=== PATIENT | female | born 1930 | race Caucasian/White ===

== ENCOUNTER 2020-05-18 12:05 | Inpatient (IN) | payer OTHER ==
[2020-05-18] MEDS ORDERED: SODIUM CHLORIDE 2,449 ML IV ONE (12:47)
--- NOTE | 2020-05-18 13:05 | PDOC ---
History of Present Illness <Marianna Newman - Last Filed: 05/18/20 19:07> - General History Source: EMS, [facility] Records Exam Limitations: Other (nonverbal baseline) - History of Present Illness Initial Comments: 05/18/20 13:06 PCP: Dr. Julius Simental Code: DNR HPI: 89yo F pmh hypotension, dementia, congenital rectovaginal fistual, genera lized weakness, unspecified dysphagia, gingivitis, GERD, anemia 2/2 folate deficiency, candidiasis of skin and nails, insomnia, ESRD on HD, afib NOS, DM2, s/p tracheostomy and PEG tube, sent in from [facility] for AMS vs lethargy. Arrived non-verbal with two page "rounding report" with no indication why sent to the ED. Call placed to [facility] / care management helping get further information. Patient nonverbal, moving all extremities / restless, cortes draining purulent urine, skin red in color. Meds: Per chart All: NKDA PMH: As above PSH: As above 05/18/20 13:40 Spoke with [facility], patient is [facility] resident, normally restless during HD sessions (MWF), today was more lethargic, BP dropped to 60/40 during HD session after 30 minutes of dialysis. Administered 500cc NS with improvement to 70/40, additional 300cc before sending to ED for evaluation of lethargy and hypotension relative to baseline hypotension. Emergency contact / HCP is daughter Della Philippe ([phone]). Nurse appraisal manager agrees to fax a copy of DNR / HCP documentation. 05/18/20 13:51 Spoke with daughter (HCP), Della Philippe who would like a central line for pressure support if that is deemed medically necessary. Confirmed the documented DNR status. Was not aware her mother was sent into the hospital. <Mat Price - Last Filed: 05/18/20 19:20> - General Chief Complaint: Blood Pressure Problem Stated Complaint: LETHARGY Time Seen by Provider: 05/18/20 13:04 Past History <Marianna Newman - Last Filed: 05/18/20 19:07> - Travel History Traveled outside of the country in the last 30 days: No Close contact w/someone who was outside of country & ill: No - Medical History Cardiac Disorders: Yes (Afib) COPD: No CHF: No Dementia: Yes Diabetes: Yes (Type 2) Dialysis: Yes (ESRF) Other medical history: Trach vent dependent, rectovaginal fistula - Reproductive History Is Patient Now?: No - Psycho-Social/Smoking History Smoking History: Smoker current status UNK Have you smoked in the past 12 months: No Information on smoking cessation initiated: No - Substance Abuse Hx (Audit-C & DAST Scrn) How often the patient has a drink containing alcohol: Never Score: In Men: 4 or > Positive; In Women: 3 or > Positive: 0 Screen Result (Pos requires Nsg. Audit-10AR): Negative <Mat Price - Last Filed: 05/18/20 19:20> - Medical History Allergies/Adverse Reactions: Allergies Allergy/AdvReac Type Severity Reaction Status Date / Time No Known Allergies Allergy Verified 05/18/20 12:12 Home Medications: Ambulatory Orders Acetaminophen [Tylenol] 325 mg PO QID PRN 05/18/20 Calcium Acetate [Phoslo -] 667 mg PO TID 05/18/20 Insulin Lispro [Humalog Kwikpen U-100] 4 units SCJ PRN 05/18/20 Magnesium 400 mg PO BID 05/18/20 Melatonin 3 mg PO HS 05/18/20 Metoprolol Tartrate 25 mg PO BID 05/18/20 Omeprazole 20 mg PO DAILY 05/18/20 Sennosides [Senna] 8.6 mg PO HS 05/18/20 Warfarin Na [Coumadin] 5 mg PO HS 05/18/20 Review of Systems - Review of Systems Able to Perform ROS?: No (nonverbal) <Mat Price - Last Filed: 05/18/20 19:20> *Physical Exam - Vital Signs Last Vital Signs Temp Pulse Resp BP Pulse Ox 97 F L 97 H 19 82/58 L 100 05/18/20 12:16 05/18/20 16:45 05/18/20 16:53 05/18/20 16:45 05/18/20 16:21 <Marianna Newman - Last Filed: 05/18/20 19:07> - Vital Signs Last Vital Signs Temp Pulse Resp BP Pulse Ox 97 F L 102 H 20 84/51 L 05/18/20 12:16 05/18/20 12:16 05/18/20 12:16 05/18/20 12:16 - Physical Exam 05/18/20 13:07 Vitals reviewed, notable for hypotension, tachycardia GEN: Chronically ill appearing, appears stated age, restless, eyes closed, noises to pain, moving around, trach and PEG in place. HEENT: NCAT, EOMI, PERRL. Sclera anicteric, non-injected. No facial asymmetry. Moist mucous membranes. Normal voice. Trachea midline. CV: RRR, S1/S2, no murmurs / rubs / gallops appreciated. LUNG: CTABL, mechanically ventilated / +tracheostomy. No wheezes, rales, rhonchi. GI: Soft, NTND, +BS, no guarding, no rebound. No masses. PEG in place, no surrounding erythema, warmth, swelling, crepitus, induration, fluctuance. EXTREMITIES: 2+ distal pulses. No clubbing / cyanosis. 2+ pitting edema to knees bilaterally. No gross deformity in any extremity. SKIN: Warm, dry, no rashes appreciated, non-jaundiced. PSYCH: Normal mood and affect. Cooperative and appropriate. : Cortes in place draining cloudy urine NEURO: Moving all extremities. Otherwise unable to participate in exam. <Mat Price - Last Filed: 05/18/20 19:20> Procedures - Central Line Central Line Lumen: triple Central Line Position: femoral (R) Anesthesia: 1% Lidocaine Amount of anesthesia (ccs): 3 Complications: none Post Central Line Insertion: sutured, good blood return <Marianna Newman - Last Filed: 05/18/20 19:07> ED Treatment Course - LABORATORY CBC & Chemistry Diagram: 05/18/20 12:30 05/18/20 12:30 - ADDITIONAL ORDERS Additional order review: Laboratory Results 05/18/20 05/18/20 05/18/20 12:30 12:30 12:30 PT with INR INR PTT (Actin FS) VBG pH POC VBG pCO2 POC VBG pO2 VBG HCO3 VBG O2 Sat (Fani) VBG Base Excess Sodium 137 Potassium 3.9 Chloride 102 Carbon Dioxide 26 Anion Gap 9 BUN 59.4 H Creatinine 3.3 H Est GFR (CKD-EPI)AfAm 13.85 Est GFR (CKD-EPI)NonAf 11.95 Random Glucose 150 H Lactic Acid 3.6 H* Calcium 8.2 L Total Bilirubin 0.3 AST 26 ALT 14 Alkaline Phosphatase 116 Creatine Kinase 113 CK-MB (CK-2) 2.1 Troponin I 0.03 Total Protein 5.1 L Albumin 1.7 L Blood Type O POSITIVE Antibody Screen Negative 05/18/20 05/18/20 12:30 12:30 PT with INR 97.20 H INR 8.07 H* PTT (Actin FS) 49.1 H VBG pH 7.376 POC VBG pCO2 46.1 POC VBG pO2 39.4 VBG HCO3 26.4 VBG O2 Sat (Fani) 72.6 VBG Base Excess 0.9 Sodium Potassium Chloride Carbon Dioxide Anion Gap BUN Creatinine Est GFR (CKD-EPI)AfAm Est GFR (CKD-EPI)NonAf Random Glucose Lactic Acid Calcium Total Bilirubin AST ALT Alkaline Phosphatase Creatine Kinase CK-MB (CK-2) Troponin I Total Protein Albumin Blood Type Antibody Screen 05/18/20 12:30 RBC 2.92 L MCV 96.7 H MCHC 30.5 L RDW 24.8 H MPV 7.9 Neutrophils % 64.5 Lymphocytes % 14.7 Monocytes % 3.8 Eosinophils % 16.7 H Basophils % 0.3 - Medications Given in the ED: ED Medications Discontinued Medications Generic Name Dose Route Start Last Admin Trade Name Jobyq PRN Reason Stop Dose Admin Acetaminophen 1,000 mg 05/18/20 16:18 05/18/20 16:19 Ofirmev Injection - IVPB 05/18/20 16:19 1,000 mg ONCE ONE Administration Sodium Chloride 2,449 mls @ 1,224.5 mls/hr 05/18/20 12:47 05/18/20 14:34 Normal Saline - 30 ml/kg infuse over 2 hr (2449 ml) 05/18/20 14:46 Not Given IV ONCE ONE Piperacillin Sod/Tazobactam 50 mls @ 100 mls/hr 05/18/20 13:45 05/18/20 14:42 Sod 3.375 gm/ Dextrose IVPB 05/18/20 14:14 100 mls/hr ONCE ONE Administration Protocol Sodium Chloride 1,000 ml 05/18/20 13:06 05/18/20 14:34 Normal Saline - IV 05/18/20 13:07 Not Given ONCE ONE Sodium Chloride 500 ml 05/18/20 13:30 05/18/20 14:15 Normal Saline - IV 05/18/20 13:31 500 ml ONCE ONE Administration Sodium Chloride 500 ml 05/18/20 15:28 05/18/20 15:15 Normal Saline - IV 05/18/20 15:29 500 ml ONCE ONE Administration Vancomycin HCl 1,000 mg 05/18/20 13:45 05/18/20 14:57 Vancomycin (Pre-Docked) IVPB 05/18/20 13:46 1,000 mg ONCE ONE Administration Protocol <Marianna Newman - Last Filed: 05/18/20 19:07> - LABORATORY CBC & Chemistry Diagram: 05/18/20 12:30 05/18/20 12:30 <Mat Price - Last Filed: 05/18/20 19:20> Medical Decision Making - Medical Decision Making 05/18/20 13:08 89yo F pmh hypotension, dementia, congenital rectovaginal fistual, generalized weakness, unspecified dysphagia, gingivitis, GERD, anemia 2/2 folate deficiency, candidiasis of skin and nails, insomnia, ESRD on HD, afib NOS, DM2, s/p tracheostomy and PEG tube, sent in from [facility] dialysis for AMS vs lethargy. History and exam concerning for sepsis / septic shock. Will obtain broad sepsis workup, IVF for shock, reach out to HCP for goals of care, early antibiosis. - Sepsis order set - Grossly overloaded, starting with 500cc, will reassess - Vanc/Zosyn for antibiosis (urine grossly infected) - Contact facility / find HCP and/or documentation 05/18/20 15:29 - Additional 500cc bolus ordered, responding to first bolus with MAP 66 - Leukocytosis - Anemia - Elevated creatinine c/w known HD patient - Elevated lactic acid - Supratherapeutic INR 8.09 05/18/20 16:25 - Pressure improves to SBP 107 - Patient not requiring pressors at present - Microblog sent for floor admission (patient DNR, no drips) - H/o c-diff, PO (PEG) Vancomycin ordered Dispo: Med/Surg HD bed 05/18/20 19:17 S/p central line, triple lumen, placed in right femoral under sterile procedure. Endorsed to Dr. Howard who will continue to monitor while patient is in the department. <Mat Price - Last Filed: 05/18/20 19:20> Discharge <Marianna Newman - Last Filed: 05/18/20 19:07> - Discharge Information Problems reviewed: Yes - Admission Yes <Mat Price - Last Filed: 05/18/20 19:20> - Discharge Information Clinical Impression/Diagnosis: ESRD (end stage renal disease) on dialysis, Lactic acid increased, Supratherapeutic INR, Septic shock Sepsis Qualifiers: Sepsis type: sepsis due to unspecified organism Sepsis acute organ dysfunction status: unspecified Qualified Code(s): A41.9 - Sepsis, unspecified organism UTI (urinary tract infection) Qualifiers: Urinary tract infection type: site unspecified Hematuria presence: with hematuria Qualified Code(s): N39.0 - Urinary tract infection, site not specified Condition: Guarded
[2020-05-18] MEDS ORDERED: SODIUM CHLORIDE 0.9% 500 ML INFUS.BAG IV ONE ×3 (13:06→15:28)
--- NOTE | 2020-05-18 13:39 | PDOC ---
Documentation entered by Susanne Cruz SCRIBE, acting as scribe for Hu Maynard MD. Hu Maynard MD: This documentation has been prepared by the Anthony hernandez Ana, SCRIBE, under my direction and personally reviewed by me in its entirety. I confirm that the documentation accurately reflects all work, treatment, procedures, and medical decision making performed by me. Attending Attestation - Resident Resident Name: Albert,Mat - ED Attending Attestation I have performed the following: I have examined & evaluated the patient, The case was reviewed & discussed with the resident, I agree w/resident's findings & plan, Exceptions are as noted - HPI HPI: 05/18/20 12:55 Patient is an 89 year old female with a significant past medical history of hypotension, dementia, rectovaginal fistual, ESRD on HD, afib, diabetes, s/p tracheostomy, who presents to the ED, from Dialysis, with altered mental status and lethargy since earlier today. Patient is nonverbal at baseline. Unable to contribute history. Allergies: NKDA HPI is limited to the patient being nonverbal. - Physicial Exam PE: 05/18/20 12:55 See resident exam. - Critical Care Time Total Critical Care Time: 60 Critical Care Statement: The care of this patient involved high complexity decision making to prevent further life threatening deterioration of the patient's condition and/or to evaluate & treat vital organ system(s) failure or risk of failure. - Medical Decision Making 05/18/20 13:40 89 F with lethargy from HD. Hypotensive in ED. Suspect sepsis. - Labs, cultures - IVF, abx Discharge - Discharge Information Problems reviewed: Yes Clinical Impression/Diagnosis: ESRD (end stage renal disease) on dialysis, Lactic acid increased, Supratherapeutic INR, Septic shock Sepsis Qualifiers: Sepsis type: sepsis due to unspecified organism Sepsis acute organ dysfunction status: unspecified Qualified Code(s): A41.9 - Sepsis, unspecified organism UTI (urinary tract infection) Qualifiers: Urinary tract infection type: site unspecified Hematuria presence: with hematuria Qualified Code(s): N39.0 - Urinary tract infection, site not specified Condition: Guarded - Follow up/Referral - Patient Discharge Instructions - Post Discharge Activity
[2020-05-18] MEDS ORDERED: VANCOMYCIN 1 GM in D5W (PRE-DOCKED) 1,000 MG/250 ML IVPB ONE (13:45)
[2020-05-18] MEDS ORDERED: PIPERACILLIN/TAZOB 3.375 GM 3.375 GM in DEXTROSE 5%-WATER - 50 ML IVPB ONE (13:45)
[2020-05-18 14:00] LABS: BASO % 0.3 % (0-2.0); EOS % 16.7 % (0-4.5); HEMATOCRIT 28.2 % (32.4-45.2); HEMOGLOBIN 8.6 GM/dL (10.7-15.3); LYMPH % 14.7 % (8-40); MCH 29.5 pg (25.7-33.7); MCHC 30.5 g/dl (32.0-36.0); MEAN CELL VOLUME 96.7 fl (80-96); MEAN PLT VOLUME 7.9 fl (7.5-11.1); MONO % 3.8 % (3.8-10.2); NEUT % 64.5 % (42.8-82.8); PLATELET COUNT 223 K/MM3 (134-434); RBC 2.92 M/mm3 (3.60-5.2); RDW 24.8 % (11.6-15.6); WHITE BLOOD COUNT 12.6 K/mm3 (4.0-10.0)
[2020-05-18 14:00] LABS: EPI CELLS 18 /uL (0-25.1); HYALINE CASTS 24 /uL (0-3.1); PH,URINE 7.5 (5.0-8.0); URINE APPEARANCE TURBID; URINE BACTERIA 7509 /uL (0-1359); URINE BILIRUBIN NEGATIVE (NEGATIVE); URINE COLOR DK YELLOW; URINE GLUCOSE (UA) NEGATIVE (NEGATIVE); URINE KETONE NEGATIVE (NEGATIVE); URINE LEUK ESTERASE 3+ (NEGATIVE); URINE NITRITE NEGATIVE (NEGATIVE); URINE PROTEIN 3+ (NEGATIVE); URINE WBC 10890 /uL (0-25.8)
[2020-05-18 14:01] LABS: PROTHROMBIN TIME (PATIENT) 97.2 SEC (9.7-13.0)
[2020-05-18 14:03] LABS: ACTIVATED PTT 49.1 SECONDS (25.2-36.5)
[2020-05-18 14:07] LABS: INR 8.07 (0.83-1.09)
[2020-05-18 14:11] LABS: VENOUS BASE EXCESS 0.9 mmol/L (-2-2); VENOUS O2 SATURATION 72.6 % (70-80); VENOUS PCO2 46.1 mmHg (38-52); VENOUS PH 7.376 (7.310-7.410)
[2020-05-18 14:39] LABS: ALBUMIN 1.7 g/dl (3.4-5.0); BILIRUBIN,TOTAL 0.3 mg/dL (0.2-1); BLOOD UREA NITROGEN 59.4 mg/dL (7-18); CALCIUM 8.2 mg/dL (8.5-10.1); CREATININE 3.3 mg/dL (0.55-1.3); POTASSIUM 3.9 mmol/L (3.5-5.1); TOT PROT 5.1 g/dl (6.4-8.2)
[2020-05-18] MEDS ORDERED: PIPERACILLIN/TAZOB 3.375 GM 3.375 GM/50 ML BAG IVPB ONE (14:41)
[2020-05-18] MEDS ORDERED: VANCOMYCIN 1 GRAM (PRE-DOCKED) 1,000 MG/250 ML BAG IVPB ONE ×2 (14:41→19:36)
[2020-05-18 14:51] LABS: URINE RBC 106.8 /uL (0-23.9); YEAST NONE SEEN (NEGATIVE)
--- NOTE | 2020-05-18 15:04 | EKG ---
Test Reason : Blood Pressure : / mmHG Vent. Rate : 098 BPM Atrial Rate : 098 BPM P-R Int : 168 ms QRS Dur : 094 ms QT Int : 358 ms P-R-T Axes : 058 025 129 degrees QTc Int : 457 ms POOR DATA QUALITY, INTERPRETATION MAY BE ADVERSELY AFFECTED NORMAL SINUS RHYTHM LOW VOLTAGE QRS CANNOT RULE OUT ANTERIOR INFARCT , AGE UNDETERMINED ABNORMAL ECG NO PREVIOUS ECGS AVAILABLE Confirmed by Que Zuniga MD ([id number]) on 05/18/2020 3:04:30 PM Referred By: Confirmed By:Que Zuniga MD
[2020-05-18 15:40] LABS: ANISOCYTOSIS 1+; MACROCYTOSIS 1+; OVALOCYTE 1+; PLATELET ESTIMATE NORMAL
[2020-05-18] MEDS ORDERED: ACETAMINOPHEN 1000 MG/100 ML VIAL (NON FORMULARY) IVPB ONE (16:18)
[2020-05-18] MEDS ORDERED: ACETAMINOPHEN INJECTION 100 ML IVPB ONE (16:18)
[2020-05-18] MEDS ORDERED: VANCOMYCIN 250 MG/5 ML ORAL SOLUTION PEG ONE (16:21)
[2020-05-18] MEDS ORDERED: NOREPINEPHRINE BITARTRATE 4 MG/4 ML ML IV ONE (19:13)
--- NOTE | 2020-05-18 19:17 | PDOC ---
*Physical Exam - Vital Signs Last Vital Signs Temp Pulse Resp BP Pulse Ox 97 F L 97 H 19 82/58 L 100 05/18/20 12:16 05/18/20 16:45 05/18/20 16:53 05/18/20 16:45 05/18/20 16:21 ED Treatment Course - LABORATORY CBC & Chemistry Diagram: 05/19/20 21:59 05/19/20 21:59 - ADDITIONAL ORDERS Additional order review: Laboratory Results 05/18/20 05/18/20 05/18/20 12:30 12:30 12:30 PT with INR INR PTT (Actin FS) VBG pH POC VBG pCO2 POC VBG pO2 VBG HCO3 VBG O2 Sat (Fani) VBG Base Excess Sodium 137 Potassium 3.9 Chloride 102 Carbon Dioxide 26 Anion Gap 9 BUN 59.4 H Creatinine 3.3 H Est GFR (CKD-EPI)AfAm 13.85 Est GFR (CKD-EPI)NonAf 11.95 Random Glucose 150 H Lactic Acid 3.6 H* Calcium 8.2 L Total Bilirubin 0.3 AST 26 ALT 14 Alkaline Phosphatase 116 Creatine Kinase 113 CK-MB (CK-2) 2.1 Troponin I 0.03 Total Protein 5.1 L Albumin 1.7 L Blood Type O POSITIVE Antibody Screen Negative 05/18/20 05/18/20 12:30 12:30 PT with INR 97.20 H INR 8.07 H* PTT (Actin FS) 49.1 H VBG pH 7.376 POC VBG pCO2 46.1 POC VBG pO2 39.4 VBG HCO3 26.4 VBG O2 Sat (Fani) 72.6 VBG Base Excess 0.9 Sodium Potassium Chloride Carbon Dioxide Anion Gap BUN Creatinine Est GFR (CKD-EPI)AfAm Est GFR (CKD-EPI)NonAf Random Glucose Lactic Acid Calcium Total Bilirubin AST ALT Alkaline Phosphatase Creatine Kinase CK-MB (CK-2) Troponin I Total Protein Albumin Blood Type Antibody Screen 05/18/20 12:30 RBC 2.92 L MCV 96.7 H MCHC 30.5 L RDW 24.8 H MPV 7.9 Neutrophils % 64.5 Lymphocytes % 14.7 Monocytes % 3.8 Eosinophils % 16.7 H Basophils % 0.3 - Medications Given in the ED: ED Medications Discontinued Medications Generic Name Dose Route Start Last Admin Trade Name Freq PRN Reason Stop Dose Admin Acetaminophen 1,000 mg 05/18/20 16:18 05/18/20 16:19 Ofirmev Injection - IVPB 05/18/20 16:19 1,000 mg ONCE ONE Administration Sodium Chloride 2,449 mls @ 1,224.5 mls/hr 05/18/20 12:47 05/18/20 14:34 Normal Saline - 30 ml/kg infuse over 2 hr (2449 ml) 05/18/20 14:46 Not Given IV ONCE ONE Piperacillin Sod/Tazobactam 50 mls @ 100 mls/hr 05/18/20 13:45 05/18/20 14:42 Sod 3.375 gm/ Dextrose IVPB 05/18/20 14:14 100 mls/hr ONCE ONE Administration Protocol Sodium Chloride 1,000 ml 05/18/20 13:06 05/18/20 14:34 Normal Saline - IV 05/18/20 13:07 Not Given ONCE ONE Sodium Chloride 500 ml 05/18/20 13:30 05/18/20 14:15 Normal Saline - IV 05/18/20 13:31 500 ml ONCE ONE Administration Sodium Chloride 500 ml 05/18/20 15:28 05/18/20 15:15 Normal Saline - IV 05/18/20 15:29 500 ml ONCE ONE Administration Vancomycin HCl 1,000 mg 05/18/20 13:45 05/18/20 14:57 Vancomycin (Pre-Docked) IVPB 05/18/20 13:46 1,000 mg ONCE ONE Administration Protocol Discharge - Discharge Information Problems reviewed: Yes Clinical Impression/Diagnosis: ESRD (end stage renal disease) on dialysis, Lactic acid increased, Supratherapeutic INR, Septic shock Sepsis Qualifiers: Sepsis type: sepsis due to unspecified organism Sepsis acute organ dysfunction status: unspecified Qualified Code(s): A41.9 - Sepsis, unspecified organism UTI (urinary tract infection) Qualifiers: Urinary tract infection type: site unspecified Hematuria presence: with hematuria Qualified Code(s): N39.0 - Urinary tract infection, site not specified Condition: Guarded - Follow up/Referral - Patient Discharge Instructions - Post Discharge Activity
[2020-05-18] MEDS ORDERED: CEFTRIAXONE 1 GM in DEXTROSE 5%-WATER - 50 ML IVPB ONE (19:27)
[2020-05-18] MEDS: NOREPINEPHRINE BITARTRATE 8,000 MCG/500 ML BAG IVPB SCH (19:30)
[2020-05-18] MEDS ORDERED: PHYTONADIONE 10 MG/1 ML AMP IVPB ONE (20:44)
[2020-05-18] MEDS ORDERED: CEFTRIAXONE 1 GM/50 ML BAG ONE (21:12)
[2020-05-18] MEDS ORDERED: PHYTONADIONE 10 MG/1 ML AMP ONE (21:54)
[2020-05-18] MEDS ORDERED: HEPARIN NA (PORCINE) 5,000 UNITS/ML 1ML VIAL SQ SCH ×2 (22:00→23:45)
--- NOTE | 2020-05-18 23:46 | CONSULT ---
Consultation: REQUESTING PROVIDER: Dr. Gt Hector CONSULT REQUEST: We have been asked to medically evaluate this patient for ICU admission HISTORY OF PRESENT ILLNESS: 89 yo female PMHx of hypotension, dementia, congenital rectovaginal fistual, generalized weakness, unspecified dysphagia, gingivitis, GERD, anemia 2/2 folate deficiency, candidiasis of skin and nails, insomnia, ESRD on HD, afib NOS, DM2, s/p tracheostomy and PEG tube, sent in from [facility] dialysis when BP dropped to 60/40 after 30 minutes of HD. Patient seen in ED with trach on ventilator, non verbal, unable to answer questions. REVIEW OF SYSTEMS: Unable to assess, patient nonverbal CONSTITUTIONAL: Absent: fever, chills, diaphoresis, generalized weakness, malaise, loss of appetite, weight change HEENT: Absent: rhinorrhea, nasal congestion, throat pain, throat swelling, difficulty swallowing, mouth swelling, ear pain, eye pain, visual changes CARDIOVASCULAR: Absent: chest pain, syncope, palpitations, irregular heart rate, lightheadedness, peripheral edema RESPIRATORY: Absent: cough, shortness of breath, dyspnea with exertion, orthopnea, wheezing, stridor, hemoptysis GASTROINTESTINAL: Absent: abdominal pain, abdominal distension, nausea, vomiting, diarrhea, constipation, melena, hematochezia GENITOURINARY: Absent: dysuria, frequency, urgency, hesitancy, hematuria, flank pain, genital pain MUSCULOSKELETAL: Absent: myalgia, arthralgia, joint swelling, back pain, neck pain SKIN: Absent: rash, itching, pallor HEMATOLOGIC/IMMUNOLOGIC: Absent: easy bleeding, easy bruising, lymphadenopathy, frequent infections ENDOCRINE: Absent: unexplained weight gain, unexplained weight loss, heat intolerance, cold intolerance NEUROLOGIC: Absent: headache, focal weakness or paresthesias, dizziness, unsteady gait, seizure, mental status changes, bladder or bowel incontinence PSYCHIATRIC: Absent: anxiety, depression, suicidal or homicidal ideation, hallucinations. PHYSICAL EXAMINATION Vital Signs - 24 hr 05/18/20 05/18/20 05/18/20 12:05 12:16 12:25 Temperature 97 F L 97 F L Pulse Rate 102 H Pulse Rate [ Apical] Respiratory 20 20 Rate Blood Pressure 84/51 L Blood Pressure [Right Arm] O2 Sat by Pulse 96 Oximetry (%) 05/18/20 05/18/20 05/18/20 13:10 13:30 13:53 Temperature Pulse Rate Pulse Rate [ 108 H 104 H Apical] Respiratory 21 H 22 H Rate Blood Pressure Blood Pressure 66/48 L 87/64 L [Right Arm] O2 Sat by Pulse 80 L Oximetry (%) 05/18/20 05/18/20 05/18/20 14:30 14:42 15:02 Temperature Pulse Rate Pulse Rate [ 102 H 92 H 102 H Apical] Respiratory 15 18 Rate Blood Pressure Blood Pressure 98/63 63/54 L 72/61 L [Right Arm] O2 Sat by Pulse 99 100 100 Oximetry (%) 05/18/20 05/18/20 05/18/20 16:21 16:45 16:53 Temperature Pulse Rate Pulse Rate [ 103 H 97 H Apical] Respiratory 16 16 19 Rate Blood Pressure Blood Pressure 107/79 82/58 L [Right Arm] O2 Sat by Pulse 100 Oximetry (%) 05/18/20 05/18/20 05/18/20 19:57 20:19 21:00 Temperature Pulse Rate Pulse Rate [ 94 H 97 H Apical] Respiratory 14 16 Rate Blood Pressure Blood Pressure 50/34 L 86/73 L [Right Arm] O2 Sat by Pulse 97 100 Oximetry (%) 05/18/20 05/18/20 21:07 21:59 Temperature 98.2 F Pulse Rate Pulse Rate [ 107 H 112 H Apical] Respiratory 15 16 Rate Blood Pressure Blood Pressure 110/52 L 105/72 [Right Arm] O2 Sat by Pulse 98 98 Oximetry (%) GENERAL: Awake, alert, unable to assess ventilation. Groans to painful stimuli. HEAD: Normal with no signs of trauma. EYES: PERRL ENT: Trach in place NECK: R trialysis cath in place LUNGS: on ventilator, venti breath sounds HEART: RRR, s1 ,s2 ABDOMEN: Obese, soft, nontender, not distended. LUQ Peg tube in place MUSCULOSKELETAL: No bony deformities or tenderness UPPER EXTREMITIES: Warm, very edematous, edematous, LOWER EXTREMITIES: R femoral line. BL feet are cold, no palpable pulses, legs are warm, +2 pitting edema BL feet& ankles. Legs very erythemaous, scaly, peeling, tender to palpation NEUROLOGICAL: Unable to fully assess. SKIN: Warm, entire body erythematous. Laboratory Results - last 24 hr 05/18/20 05/18/20 05/18/20 12:30 12:30 12:30 WBC 12.6 H RBC 2.92 L Hgb 8.6 L Hct 28.2 L MCV 96.7 H MCH 29.5 MCHC 30.5 L RDW 24.8 H Plt Count 223 MPV 7.9 Absolute Neuts (auto) 8.1 H Neutrophils % 64.5 Lymphocytes % 14.7 Monocytes % 3.8 Eosinophils % 16.7 H Basophils % 0.3 Nucleated RBC % 0 Hypochromia 1+ Platelet Estimate Normal Polychromasia 1+ Poikilocytosis 1+ Anisocytosis 1+ Microcytosis 1+ Macrocytosis 1+ Ovalocytes 1+ PT with INR 97.20 H INR 8.07 H* PTT (Actin FS) 49.1 H VBG pH 7.376 POC VBG pCO2 46.1 POC VBG pO2 39.4 VBG HCO3 26.4 VBG O2 Sat (Fani) 72.6 VBG Base Excess 0.9 Sodium Potassium Chloride Carbon Dioxide Anion Gap BUN Creatinine Est GFR (CKD-EPI)AfAm Est GFR (CKD-EPI)NonAf Random Glucose Lactic Acid Calcium Total Bilirubin AST ALT Alkaline Phosphatase Creatine Kinase CK-MB (CK-2) Troponin I Total Protein Albumin Urine Color Urine Appearance Urine pH Ur Specific Crowder Urine Protein Urine Glucose (UA) Urine Ketones Urine Blood Urine Nitrite Urine Bilirubin Urine Urobilinogen Ur Leukocyte Esterase Urine WBC (Auto) Urine RBC (Auto) Urine Casts (Auto) U Pathogenic Cast Auto U Epithel Cells (Auto) Urine Bacteria (Auto) Urine Yeast (Auto) Blood Type Antibody Screen 05/18/20 05/18/20 05/18/20 12:30 12:30 12:30 WBC RBC Hgb Hct MCV MCH MCHC RDW Plt Count MPV Absolute Neuts (auto) Neutrophils % Lymphocytes % Monocytes % Eosinophils % Basophils % Nucleated RBC % Hypochromia Platelet Estimate Polychromasia Poikilocytosis Anisocytosis Microcytosis Macrocytosis Ovalocytes PT with INR INR PTT (Actin FS) VBG pH POC VBG pCO2 POC VBG pO2 VBG HCO3 VBG O2 Sat (Fani) VBG Base Excess Sodium 137 Potassium 3.9 Chloride 102 Carbon Dioxide 26 Anion Gap 9 BUN 59.4 H Creatinine 3.3 H Est GFR (CKD-EPI)AfAm 13.85 Est GFR (CKD-EPI)NonAf 11.95 Random Glucose 150 H Lactic Acid 3.6 H* Calcium 8.2 L Total Bilirubin 0.3 AST 26 ALT 14 Alkaline Phosphatase 116 Creatine Kinase 113 CK-MB (CK-2) 2.1 Troponin I 0.03 Total Protein 5.1 L Albumin 1.7 L Urine Color Urine Appearance Urine pH Ur Specific Crowder Urine Protein Urine Glucose (UA) Urine Ketones Urine Blood Urine Nitrite Urine Bilirubin Urine Urobilinogen Ur Leukocyte Esterase Urine WBC (Auto) Urine RBC (Auto) Urine Casts (Auto) U Pathogenic Cast Auto U Epithel Cells (Auto) Urine Bacteria (Auto) Urine Yeast (Auto) Blood Type O POSITIVE Antibody Screen Negative 05/18/20 05/18/20 13:28 19:26 WBC RBC Hgb Hct MCV MCH MCHC RDW Plt Count MPV Absolute Neuts (auto) Neutrophils % Lymphocytes % Monocytes % Eosinophils % Basophils % Nucleated RBC % Hypochromia Platelet Estimate Polychromasia Poikilocytosis Anisocytosis Microcytosis Macrocytosis Ovalocytes PT with INR INR PTT (Actin FS) VBG pH POC VBG pCO2 POC VBG pO2 VBG HCO3 VBG O2 Sat (Fani) VBG Base Excess Sodium Potassium Chloride Carbon Dioxide Anion Gap BUN Creatinine Est GFR (CKD-EPI)AfAm Est GFR (CKD-EPI)NonAf Random Glucose Lactic Acid 2.3 H* Calcium Total Bilirubin AST ALT Alkaline Phosphatase Creatine Kinase CK-MB (CK-2) Troponin I Total Protein Albumin Urine Color Dk yellow Urine Appearance Turbid Urine pH 7.5 Ur Specific Crowder 1.015 Urine Protein 3+ H Urine Glucose (UA) Negative Urine Ketones Negative Urine Blood 2+ H Urine Nitrite Negative Urine Bilirubin Negative Urine Urobilinogen 1.0 Ur Leukocyte Esterase 3+ H Urine WBC (Auto) 97262 Urine RBC (Auto) 106.8 Urine Casts (Auto) 24 U Pathogenic Cast Auto None seen U Epithel Cells (Auto) 18 Urine Bacteria (Auto) 7509 Urine Yeast (Auto) None seen Blood Type Antibody Screen Active Medications Generic Name Dose Route Start Last Admin Trade Name Freq PRN Reason Stop Dose Admin Chlorhexidine Gluconate 1 applic 05/18/20 22:00 Hibiclens For Decolonization - TP HS TAMIA Norepinephrine Bitartrate 8,000 mcg in 500 mls @ 18.75 mls/hr 05/18/20 19:15 05/18/20 19:57 Levophed Bag IVPB 20 mcg/min TITR TAMIA 75 mls/hr Titration Protocol 5 MCG/MIN Piperacillin Sod/Tazobactam 50 mls @ 100 mls/hr 05/19/20 10:00 Sod 2.25 gm/ Dextrose IVPB BID TAMIA Protocol Piperacillin Sod/Tazobactam 50 mls @ 100 mls/hr 05/18/20 22:00 Sod 2.25 gm/ Dextrose IVPB 05/19/20 22:29 BID [facility] Protocol Mupirocin 1 applic 05/18/20 22:00 Bactroban Ointment (For Decolonization) - NS 05/23/20 21:59 BID TAMIA IMAGING: CXR: Single view of the chest reveals a weak inspiratory effort with tracheostomy tube tip well above ivan, right jugular line tip in right atrium, sclerotic knob, normal jessica and normal heart. There is some blunting of the left angle with left base atelectasis. There is no sign of infiltrate or failure. Pneumothorax is not seen. There are degenerative spine and shoulder changes with possible old trauma involving the left shoulder. There are no prior studies for comparison. Correlation recommended ASSESSMENT/PLAN: 89yo F pmh hypotension, dementia, congenital rectovaginal fistual, generalized weakness, unspecified dysphagia, gingivitis, GERD, anemia 2/2 folate deficiency, candidiasis of skin and nails, insomnia, ESRD on HD, afib NOS, DM2, s/p tracheostomy and PEG tube, sent in from [facility] dialysis for AMS vs lethargy. Admitted to ICU for hypotension 2/2 sepsis. Neuro: - patient is awake and alert - non verbal Pulm: - patient intubated, has trach - CXR: left base atelectasis Cardio: - trop neg - Cardiac monitoring - Hypotension, currently on levophed, BP stable ID: - sepsis: 2/2 UTI, + UA, cx pending - given Vanc, zosyn, rocephin in ED - h/o cdiff, given PO vanc and flagyl in ED - lactic acidosis, trending down - covid pending - ID consulted (Dr. Tierney) Heme: - INR supratherapeutic, giving FFP - On coumadin at home, holding for now (not sure why patient is on) - repeat coags in AM - Hold AC Renal: - cortes in place - ESRD on HD - Nephrology consulted (Dr. Donis) GI - h/o cdiff, given po vanc & flagyl in ED Derm: - full body erythema, does not look like gregorio - hx of skin gregorio - monitor skin changes, discuss with ID DVT Ppx: - holding AC GI Ppx: - protonix 40 IV daily Dispo: Admitting patient to ICU Visit type - Medication Review Med list reviewed for High Risk Meds patients 65 and older: Yes - Emergency Visit Emergency Visit: Yes ED Registration Date: 05/18/20 Care time: The patient presented to the Emergency Department on the above date and was hospitalized for further evaluation of their emergent condition. - New Patient This patient is new to me today: No - Critical Care Critical Care patient: Yes Total Critical Care Time (in minutes): 36 Critical Care Statement: The care of this patient involved high complexity decision making to prevent further life threatening deterioration of the patient's condition and/or to evaluate & treat vital organ system(s) failure or risk of failure. ATTENDING PHYSICIAN STATEMENT I saw and evaluated the patient. I reviewed the resident's note and discussed the case with the resident. I agree with the resident's findings and plan as documented. SUBJECTIVE: OBJECTIVE: ASSESSMENT AND PLAN:
[2020-05-18] MEDS ORDERED: DEXTROSE 5%-WATER - 50 ML IVPB ONE (23:48)
[2020-05-18] MEDS ORDERED: PIPERACILLIN/TAZOBACTAM 2.25 GM VIAL IVPB ONE (23:48)
[2020-05-19] MEDS: MUPIROCIN 2% TOPICAL OINTMENT FOR DECOLONIZATION NS SCH ×3 (00:10→22:46)
[2020-05-19] MEDS: PIPERACILLIN/TAZOB 2.25 GM 2.25 GM in DEXTROSE 5%-WATER - 50 ML IVPB SCH ×3 (00:10→18:17)
[2020-05-19] MEDS: CHLORHEXIDINE GLUCONATE 4% CLEANSER FOR DECOLONIZATION TP SCH ×2 (00:10→22:46)
[2020-05-19] MEDS ORDERED: diphenhydrAMINE HCL 25 MG CAPSULE (FP) PO ONE (04:19)
--- NOTE | 2020-05-19 09:48 | CON.NEP ---
Consult Consult Specialty:: nephrology Reason for Consultation:: esrd - History of Present Illness History of Present Illness: 89yo F pmh hypotension, dementia, congenital rectovaginal fistual, generalized weakness, unspecified dysphagia, gingivitis, GERD, anemia 2/2 folate deficiency, candidiasis of skin and nails, insomnia, ESRD on HD, afib NOS, DM2, s/p tracheostomy and PEG tube, sent in from [facility] dialysis for AMS vs lethargy. She was hypotensive and lethargic. So I had them send her to emergency room from dialysis unit. She is unable to provide any history. Was hypotensive and with a high INR. She is now in ICU on pressors and receiving ffp. She was at another institution 2 to 3 weeks ago after her permcath was dislodged somehow - History Source Limitations to Obtaining History: Dementia - Past Medical History REC THERAPIST: Yes: CVA, Dementia Cardio/Vascular: Yes: AFIB Renal/: Yes: Renal Failure ...: No - Smoking History Smoking history: Smoker current status UNK Have you smoked in the past 12 months: No Home Medications - Allergies Allergies/Adverse Reactions: Allergies Allergy/AdvReac Type Severity Reaction Status Date / Time No Known Allergies Allergy Verified 05/18/20 12:12 - Home Medications Home Medications: Ambulatory Orders Acetaminophen [Tylenol] 325 mg PO QID PRN 05/18/20 Calcium Acetate [Phoslo -] 667 mg PO TID 05/18/20 Insulin Lispro [Humalog Kwikpen U-100] 4 units SCJ PRN 05/18/20 Magnesium 400 mg PO BID 05/18/20 Melatonin 3 mg PO HS 05/18/20 Metoprolol Tartrate 25 mg PO BID 05/18/20 Omeprazole 20 mg PO DAILY 05/18/20 Sennosides [Senna] 8.6 mg PO HS 05/18/20 Warfarin Na [Coumadin] 5 mg PO HS 05/18/20 Review of Systems Unable to obtain ROS, reason: trach, septic Nephrology Consult - Height Height: 5 ft 5 in - Weight Weight: 185 lb 13.595 oz - BMI Body Mass Index (BMI): 30.9 - Lab Results CBC,BMP: CBC, BMP 05/18/20 12:30 05/18/20 12:30 Anion Gap: Anion Gap Anion Gap 9 MMOL/L (8-16) 05/18/20 12:30 - Imaging Chest X-ray: Report Reviewed - Physical Examination Vital Signs: Vital Signs Temperature 97.2 F L 05/19/20 07:00 Pulse Rate 114 H 05/19/20 08:00 Respiratory Rate 16 05/19/20 08:00 Blood Pressure 138/39 L 05/19/20 08:00 O2 Sat by Pulse Oximetry (%) 99 05/19/20 04:31 Constitutional: Yes: Well Nourished, No Distress, Calm Eyes: Yes: Conjunctiva Clear HENT: Yes: Atraumatic, Normocephalic Neck: Yes: Trachea Midline, Other (has trach) Cardiovascular: Yes: Pulse Irregular Respiratory: Yes: Regular, CTA Bilaterally Gastrointestinal: Yes: Soft Access for Hemodialysis: Permacath Musculoskeletal: Yes: WNL Extremities: Yes: Cyanosis Edema: Yes Integumentary: Yes: Erythema (throughout) Wound/Incision: Yes: Clean/Dry Neurological: Yes: Other (lethargic) Assessment/Plan IMPRESSION esrd trach sepsis rash -?allergic to vanco or zosyn edema in part from hypoalbuminemia lactic acidosis with normal anion gap due to low albumin PLAN would continue broad spectrum antibiotics she has a permcath so should continue vanco. May have had olivier ask ID to eval monitor hgb and INR closely will need to try to dialyze today, repeat labs MV
[2020-05-19] MEDS ORDERED: PIPERACILLIN/TAZOBACTAM 2.25 GM VIAL IVPB ONE ×2 (09:57→17:52)
[2020-05-19] MEDS ORDERED: DEXTROSE 5%-WATER - 50 ML IVPB ONE ×2 (09:58→17:53)
[2020-05-19] MEDS ORDERED: PIPERACILLIN/TAZOB 2.25 GM 2.25 GM in DEXTROSE 5%-WATER - 50 ML IVPB SCH (10:00)
[2020-05-19] MEDS ORDERED: PNEUMOC 13-VAL CONJ-DIP CRM/PF 0.5 ML DISP.SYRIN IM ONE (10:00)
[2020-05-19] MEDS ORDERED: SODIUM CHLORIDE 250 ML IV PRN (10:06)
[2020-05-19] MEDS: PANTOPRAZOLE SODIUM 40 MG VIAL IVPUSH SCH (10:41)
[2020-05-19] MEDS ORDERED: NOREPINEPHRINE BITARTRATE 4 MG/4 ML ML IV ONE (11:10)
[2020-05-19 11:41] LABS: BILIRUBIN,DIRECT 0.1 mg/dL (0.0-0.2)
[2020-05-19] MEDS: VANCOMYCIN 250 MG/5 ML ORAL SOLUTION PO SCH ×2 (12:48→18:16)
[2020-05-19 13:11] LABS: BASO % 0.5 % (0-2.0); EOS % 21.7 % (0-4.5); HEMATOCRIT 20.9 % (32.4-45.2); LYMPH % 15.6 % (8-40); MCH 30.2 pg (25.7-33.7); MCHC 31.9 g/dl (32.0-36.0); MEAN CELL VOLUME 94.5 fl (80-96); MEAN PLT VOLUME 7.6 fl (7.5-11.1); NEUT % 57.2 % (42.8-82.8); PLATELET COUNT 200 K/MM3 (134-434); RBC 2.21 M/mm3 (3.60-5.2); RDW 24.4 % (11.6-15.6); WHITE BLOOD COUNT 9.5 K/mm3 (4.0-10.0)
[2020-05-19 13:13] LABS: INR 1.31 (0.83-1.09); PROTHROMBIN TIME (PATIENT) 15.5 SEC (9.7-13.0)
--- NOTE | 2020-05-19 13:14 | PN ---
Teaching Attending Note Name of Resident: Kayden Linder ATTENDING PHYSICIAN STATEMENT I saw and evaluated the patient. I reviewed the resident's note and discussed the case with the resident. I agree with the resident's findings and plan as documented. SUBJECTIVE: Pt seen and examined in the ICU. Remains vented, on levophed gtt 15mcgs. OBJECTIVE: Vital Signs Period Temp Pulse Resp BP Sys/Hernandez Pulse Ox Last 24 Hr 97.1 F-98.9 F 92-114 14-24 50-138/34-88 80-100 Intake & Output 05/16/20 05/17/20 05/18/20 05/19/20 23:59 23:59 23:59 23:59 Intake Total 1550 963 Output Total 75 100 Balance 1475 863 Weight 81.647 kg 84.3 kg Gen: vented, poorly responsive Heart: RRR Lung: decreased breath sounds at the bases Abd: soft, nontender Ext: no edema Active Medications Chlorhexidine Gluconate (Hibiclens For Decolonization -) 1 applic TP HS TAMIA Last Admin: 05/19/20 00:10 Dose: 1 applic Documented by: Diphenhydramine HCl (Benadryl Injection -) 25 mg IVPB ONCE ONE Stop: 05/19/20 13:11 Norepinephrine Bitartrate (Levophed Bag) 8,000 mcg in 500 mls @ 18.75 mls/hr IVPB TITR TAMIA; Protocol Last Titration: 05/19/20 11:03 Dose: 10 mcg/min, 37.5 mls/hr Documented by: Piperacillin Sod/Tazobactam (Sod 2.25 gm/ Dextrose) 50 mls @ 100 mls/hr IVPB BID TAMIA; Protocol Piperacillin Sod/Tazobactam (Sod 2.25 gm/ Dextrose) 50 mls @ 100 mls/hr IVPB BID TAMIA; Protocol Stop: 05/19/20 22:29 Last Admin: 05/19/20 10:41 Dose: 100 mls/hr Documented by: Sodium Chloride (Normal Saline -) 250 mls @ 3,000 mls/hr IV PRN PRN PRN Reason: Hypotension during Dialysis Stop: 05/20/20 10:07 Mupirocin (Bactroban Ointment (For Decolonization) -) 1 applic NS BID TAMIA Stop: 05/23/20 21:59 Last Admin: 05/19/20 10:39 Dose: 1 applic Documented by: Pantoprazole Sodium (Protonix Iv) 40 mg IVPUSH DAILY [facility] Last Admin: 05/19/20 10:41 Dose: 40 mg Documented by: Vancomycin HCl (Vancomycin Oral Solution) 125 mg PO Q6HPO [facility] Last Admin: 05/19/20 12:48 Dose: 125 mg Documented by: ASSESSMENT AND PLAN: Chronic Respiratory Failure UTI Septic Shock ESRD on HD Atrial Fibrillation Supratherapeutic INR DM Drug Rash - continue antibiotics - f/u cultures - titrate pressors to maintain MAP >65 - HD per renal - benadryl - enteral feeds - DVT/GI prophylaxis - continue ICU monitoring critical care time spent in reviewing chart, evaluating patient and formulating plan 35 min
[2020-05-19 13:16] LABS: ACTIVATED PTT 30.5 SECONDS (25.2-36.5)
[2020-05-19 13:27] LABS: HEMOGLOBIN 6.7 GM/dL (10.7-15.3)
[2020-05-19 13:37] LABS: ALBUMIN 1.8 g/dl (3.4-5.0); BILIRUBIN,TOTAL 0.4 mg/dL (0.2-1); BLOOD UREA NITROGEN 66.2 mg/dL (7-18); CALCIUM 7.9 mg/dL (8.5-10.1); CREATININE 3.7 mg/dL (0.55-1.3); MAGNESIUM 2.7 mg/dL (1.8-2.4); TOT PROT 4.7 g/dl (6.4-8.2)
[2020-05-19 13:49] LABS: PHOSPHOROUS 0.9 mg/dL (2.5-4.9)
--- NOTE | 2020-05-19 14:06 | CON.ID ---
Consult Consult Specialty:: infectious diseases Referred by:: Reason for Consultation:: ams,lethargy,resp failure - History of Present Illness Chief Complaint: lethargy,ams History of Present Illness: history obtained from the charts aspatient is lethargic and in resp failure and came in with septic shock and is on pressors 89yo F pmh hypotension, dementia, congenital rectovaginal fistual, generalized weakness, unspecified dysphagia, gingivitis, GERD, anemia 2/2 folate deficiency, candidiasis of skin and nails, insomnia, ESRD on HD, afib NOS, DM2, s/p tracheostomy and PEG tube, sent in from [facility] dialysis for AMS and lethargy. . Patient nonverbal, moving all extremities / restless, cortes draining purulent urine, patient is [facility] resident, normally restless during HD sessions (MWF), today was more lethargic, BP dropped to 60/40 during HD session after 30 minutes of dialysis. Administered 500cc NS with improvement to 70/40, additional 300cc before sending to ED for evaluation of lethargy and hypotension relative to baseline hypotension. Emergency contact currently with ervin barron,opens eyes barely when her name is taken patient also has rash cause not known patient is receiving zosyn and received vanc all cx negative so far has a trach in place - History Source History Provided By: Medical Record, Transfer Record Limitations to Obtaining History: Clinical Condition - Past Medical History TREE INSPECTOR: Yes: CVA, Dementia Cardio/Vascular: Yes: AFIB Renal/: Yes: Renal Failure ...: No - Smoking History Smoking history: Smoker current status UNK Have you smoked in the past 12 months: No Home Medications - Allergies Allergies/Adverse Reactions: Allergies Allergy/AdvReac Type Severity Reaction Status Date / Time No Known Allergies Allergy Verified 05/18/20 12:12 - Home Medications Home Medications: Ambulatory Orders Acetaminophen [Tylenol] 325 mg PO QID PRN 05/18/20 Calcium Acetate [Phoslo -] 667 mg PO TID 05/18/20 Insulin Lispro [Humalog Kwikpen U-100] 4 units SCJ PRN 05/18/20 Magnesium 400 mg PO BID 05/18/20 Melatonin 3 mg PO HS 05/18/20 Metoprolol Tartrate 25 mg PO BID 05/18/20 Omeprazole 20 mg PO DAILY 05/18/20 Sennosides [Senna] 8.6 mg PO HS 05/18/20 Warfarin Na [Coumadin] 5 mg PO HS 05/18/20 Review of Systems Unable to obtain ROS, reason: unable to obtain - Review of Systems Constitutional: reports: Other Physical Exam Vital Signs: Vital Signs Temperature 97.6 F 05/19/20 13:56 Pulse Rate 88 05/19/20 13:56 Respiratory Rate 18 05/19/20 13:56 Blood Pressure 99/68 05/19/20 13:56 O2 Sat by Pulse Oximetry (%) 97 05/19/20 12:10 Constitutional: Yes: Other Neck: Yes: Other (tracheosstomy) Cardiovascular: Yes: Pulse Irregular Respiratory: Yes: Mechanically Ventilated, Other (trach) Gastrointestinal: Yes: Normal Bowel Sounds, Soft, Other (peg) Extremities: Yes: WNL Integumentary: Yes: Rash Wound/Incision: Yes: Clean/Dry Labs: CBC, BMP 05/19/20 12:00 05/19/20 12:00 Imaging - Results Chest X-ray: Report Reviewed, Image Reviewed Assessment/Plan this patient with multiple medical issues now in septic shock all cx reports noted Chronic Respiratory Failure UTI Septic Shock ESRD on HD Atrial Fibrillation Supratherapeutic INR DM Drug Rash plan will continue abx will see how patient does as per icu mgmt might add diflucan rest as per the team monitor rash continue pressors as needed cc 40 min
[2020-05-19] MEDS ORDERED: NAPH,MB-DB/K PH,MBDB POWDER PACKET PO ONE (14:15)
[2020-05-19 14:19] LABS: ANISOCYTOSIS 1+; MACROCYTOSIS 1+; PLATELET ESTIMATE NORMAL
--- NOTE | 2020-05-19 19:55 | PN ---
Physical Exam: SUBJECTIVE: Patient seen and examined OBJECTIVE: Vital Signs Period Temp Pulse Resp BP Sys/Hernandez Pulse Ox Last 24 Hr 97.1 F-98.9 F 88-120 14-24 50-138/34-88 97-100 GENERAL: The patient is awake, alert, and fully oriented, in no acute distress. HEAD: Normal with no signs of trauma. EYES: PERRL, extraocular movements intact, sclera anicteric, conjunctiva clear. No ptosis. ENT: Ears normal, nares patent, oropharynx clear without exudates, moist mucous membranes. NECK: Trachea midline, full range of motion, supple. LUNGS: Breath sounds equal, clear to auscultation bilaterally, no wheezes, no crackles, no accessory muscle use. HEART: Regular rate and rhythm, S1, S2 without murmur, rub or gallop. ABDOMEN: Soft, nontender, nondistended, normoactive bowel sounds, no guarding, no rebound, no hepatosplenomegaly, no masses. EXTREMITIES: 2+ pulses, warm, well-perfused, no edema. NEUROLOGICAL: Cranial nerves II through XII grossly intact. Normal speech, gait not observed. PSYCH: Normal mood, normal affect. SKIN: Warm, dry, normal turgor, no rashes or lesions noted Laboratory Results - last 24 hr 05/18/20 05/18/20 05/18/20 12:30 12:30 12:30 WBC RBC Hgb Hct MCV MCH MCHC RDW Plt Count MPV Absolute Neuts (auto) Neutrophils % Neutrophils % (Manual) Band Neutrophils % Lymphocytes % Lymphocytes % (Manual) Monocytes % Monocytes % (Manual) Eosinophils % Eosinophils % (Manual) Basophils % Basophils % (Manual) Myelocytes % (Man) Promyelocytes % (Man) Blast Cells % (Manual) Nucleated RBC % Metamyelocytes Hypochromia Platelet Estimate Polychromasia Poikilocytosis Basophilic Stippling Anisocytosis Microcytosis Macrocytosis PT with INR INR PTT (Actin FS) VBG pH 7.376 POC VBG pCO2 46.1 POC VBG pO2 39.4 VBG HCO3 26.4 VBG O2 Sat (Fani) 72.6 VBG Base Excess 0.9 Sodium 137 Potassium 3.9 Chloride 102 Carbon Dioxide 26 Anion Gap 9 BUN 59.4 H Creatinine 3.3 H Est GFR (CKD-EPI)AfAm 13.85 Est GFR (CKD-EPI)NonAf 11.95 Random Glucose 150 H Lactic Acid Calcium 8.2 L Phosphorus Magnesium Ferritin 436.6 H Total Bilirubin 0.3 Direct Bilirubin 0.1 AST 26 ALT 14 Alkaline Phosphatase 116 LD Total 479 H Creatine Kinase 113 CK-MB (CK-2) 2.1 Troponin I 0.03 C-Reactive Protein 9.8 H Total Protein 5.1 L Albumin 1.7 L COVID-19 (DAVE) Blood Type O POSITIVE Antibody Screen Negative Crossmatch See Detail 05/18/20 05/18/20 05/19/20 12:30 19:26 12:00 WBC RBC Hgb Hct MCV MCH MCHC RDW Plt Count MPV Absolute Neuts (auto) Neutrophils % Neutrophils % (Manual) Band Neutrophils % Lymphocytes % Lymphocytes % (Manual) Monocytes % Monocytes % (Manual) Eosinophils % Eosinophils % (Manual) Basophils % Basophils % (Manual) Myelocytes % (Man) Promyelocytes % (Man) Blast Cells % (Manual) Nucleated RBC % Metamyelocytes Hypochromia Platelet Estimate Polychromasia Poikilocytosis Basophilic Stippling Anisocytosis Microcytosis Macrocytosis PT with INR INR PTT (Actin FS) VBG pH POC VBG pCO2 POC VBG pO2 VBG HCO3 VBG O2 Sat (Fani) VBG Base Excess Sodium Potassium Chloride Carbon Dioxide Anion Gap BUN Creatinine Est GFR (CKD-EPI)AfAm Est GFR (CKD-EPI)NonAf Random Glucose Lactic Acid 2.3 H* 2.7 H* Calcium Phosphorus Magnesium Ferritin Total Bilirubin Direct Bilirubin AST ALT Alkaline Phosphatase LD Total Creatine Kinase CK-MB (CK-2) Troponin I C-Reactive Protein Total Protein Albumin COVID-19 (DAVE) Not detected Blood Type Antibody Screen Crossmatch 05/19/20 05/19/20 05/19/20 12:00 12:00 12:00 WBC 9.5 RBC 2.21 L Hgb 6.7 L* Hct 20.9 L D MCV 94.5 MCH 30.2 MCHC 31.9 L RDW 24.4 H Plt Count 200 MPV 7.6 Absolute Neuts (auto) 5.5 Neutrophils % 57.2 Neutrophils % (Manual) 59.4 Band Neutrophils % 0.0 Lymphocytes % 15.6 Lymphocytes % (Manual) 13.9 Monocytes % 5.0 Monocytes % (Manual) 0 L Eosinophils % 21.7 H* Eosinophils % (Manual) 24.7 H Basophils % 0.5 Basophils % (Manual) 0.0 Myelocytes % (Man) 1 Promyelocytes % (Man) 0 Blast Cells % (Manual) 0 Nucleated RBC % 0 Metamyelocytes 1 Hypochromia 1+ Platelet Estimate Normal Polychromasia 1+ Poikilocytosis 0 Basophilic Stippling 1+ Anisocytosis 1+ Microcytosis 1+ Macrocytosis 1+ PT with INR 15.50 H INR 1.31 H PTT (Actin FS) 30.5 VBG pH POC VBG pCO2 POC VBG pO2 VBG HCO3 VBG O2 Sat (Fani) VBG Base Excess Sodium 137 Potassium 3.0 L Chloride 100 Carbon Dioxide 29 Anion Gap 8 BUN 66.2 H Creatinine 3.7 H Est GFR (CKD-EPI)AfAm 12.06 Est GFR (CKD-EPI)NonAf 10.41 Random Glucose 133 H Lactic Acid Calcium 7.9 L Phosphorus 0.9 L* Magnesium 2.7 H Ferritin Total Bilirubin 0.4 Direct Bilirubin AST 20 ALT 13 Alkaline Phosphatase 69 LD Total Creatine Kinase CK-MB (CK-2) Troponin I C-Reactive Protein Total Protein 4.7 L Albumin 1.8 L COVID-19 (DAVE) Blood Type Antibody Screen Crossmatch 05/19/20 14:40 WBC RBC Hgb Hct MCV MCH MCHC RDW Plt Count MPV Absolute Neuts (auto) Neutrophils % Neutrophils % (Manual) Band Neutrophils % Lymphocytes % Lymphocytes % (Manual) Monocytes % Monocytes % (Manual) Eosinophils % Eosinophils % (Manual) Basophils % Basophils % (Manual) Myelocytes % (Man) Promyelocytes % (Man) Blast Cells % (Manual) Nucleated RBC % Metamyelocytes Hypochromia Platelet Estimate Polychromasia Poikilocytosis Basophilic Stippling Anisocytosis Microcytosis Macrocytosis PT with INR INR PTT (Actin FS) VBG pH POC VBG pCO2 POC VBG pO2 VBG HCO3 VBG O2 Sat (Fani) VBG Base Excess Sodium Potassium Chloride Carbon Dioxide Anion Gap BUN Creatinine Est GFR (CKD-EPI)AfAm Est GFR (CKD-EPI)NonAf Random Glucose Lactic Acid Calcium Phosphorus Magnesium Ferritin Total Bilirubin Direct Bilirubin AST ALT Alkaline Phosphatase LD Total Creatine Kinase CK-MB (CK-2) Troponin I C-Reactive Protein Total Protein Albumin COVID-19 (DAVE) Blood Type O POSITIVE Antibody Screen Crossmatch Active Medications Generic Name Dose Route Start Last Admin Trade Name Freq PRN Reason Stop Dose Admin Chlorhexidine Gluconate 1 applic 05/18/20 22:00 05/19/20 00:10 Hibiclens For Decolonization - TP 1 applic HS TAMIA Administration Norepinephrine Bitartrate 8,000 mcg in 500 mls @ 18.75 mls/hr 05/18/20 19:15 05/19/20 15:51 Levophed Bag IVPB 15 mcg/min TITR TAMIA 56.25 mls/hr Titration Protocol 5 MCG/MIN Sodium Chloride 250 mls @ 3,000 mls/hr 05/19/20 10:06 Normal Saline - IV 05/20/20 10:07 PRN PRN Hypotension during Dialysis Piperacillin Sod/Tazobactam 50 mls @ 100 mls/hr 05/19/20 18:00 05/19/20 18:17 Sod 2.25 gm/ Dextrose IVPB 100 mls/hr Q8H-IV TAMIA Administration Protocol Mupirocin 1 applic 05/18/20 22:00 05/19/20 10:39 Bactroban Ointment (For Decolonization) - NS 05/23/20 21:59 1 applic BID TAMIA Administration Pantoprazole Sodium 40 mg 05/19/20 10:00 05/19/20 10:41 Protonix Iv IVPUSH 40 mg DAILY TAMIA Administration Vancomycin HCl 125 mg 05/19/20 12:00 05/19/20 18:16 Vancomycin Oral Solution PO 125 mg Q6HPO TAMIA Administration ASSESSMENT/PLAN: 89 yo F with a hypotension, dementia, congenital rectovaginal fistula, GERD, anemia 2/2 folate deficiency, ESRD (HD), afib, and s/p tracheostomy with PEG was sent in from [facility] for AMS vs lethargy with subsequent admission to ICU for sepsis. Neuro: - patient is awake and alert - non verbal Pulm: - patient has tracheostomy - CXR: cxr clear for 05/20/2020 Cardio: - trop neg - Cardiac monitoring - Hypotension, currently on levophed, BP stable ID: - sepsis: 2/2 UTI, + UA, cx pending - given Vanc, zosyn, rocephin in ED - h/o cdiff, given PO vanc and flagyl in ED - lactic acidosis, trending down - covid pending - ID consulted (Dr. Tierney) Heme: - INR supratherapeutic, giving FFP - On coumadin at home, holding for now (not sure why patient is on) - repeat coags in AM - Hold AC Renal: - cortes in place - ESRD on HD - Nephrology consulted (Dr. Donis) GI - h/o cdiff, given po vanc & flagyl in ED Derm: - full body erythema, does not look like gregorio - hx of skin gregorio - monitor skin changes, discuss with ID DVT Ppx: - holding AC GI Ppx: - protonix 40 IV daily Dispo: Admitting patient to ICU ATTENDING PHYSICIAN STATEMENT I saw and evaluated the patient. I reviewed the resident's note and discussed the case with the resident. I agree with the resident's findings and plan as documented. SUBJECTIVE: OBJECTIVE: ASSESSMENT AND PLAN:
[2020-05-19 22:21] LABS: HEMATOCRIT 30.9 % (32.4-45.2); HEMOGLOBIN 9.9 GM/dL (10.7-15.3); MCH 29.9 pg (25.7-33.7); MCHC 32.2 g/dl (32.0-36.0); MEAN PLT VOLUME 7.1 fl (7.5-11.1); RBC 3.32 M/mm3 (3.60-5.2); RDW 20.8 % (11.6-15.6); WHITE BLOOD COUNT 11.7 K/mm3 (4.0-10.0)
[2020-05-19] MEDS: NOREPINEPHRINE BITARTRATE 8,000 MCG/500 ML BAG IVPB SCH (22:26)
[2020-05-19] MEDS: ZINC OXIDE 20% TOPICAL OINTMENT 30 GM TUBE TP SCH (22:46)
[2020-05-19 22:48] LABS: ALBUMIN 1.9 g/dl (3.4-5.0); BILIRUBIN,TOTAL 0.6 mg/dL (0.2-1); CALCIUM 7.9 mg/dL (8.5-10.1); CREATININE 2.3 mg/dL (0.55-1.3); MAGNESIUM 2.5 mg/dL (1.8-2.4)
[2020-05-19 23:03] LABS: BLOOD UREA NITROGEN 32.4 mg/dL (7-18)
[2020-05-19 23:17] LABS: POTASSIUM 2.9 mmol/L (3.5-5.1)
[2020-05-19] MEDS ORDERED: ACETAMINOPHEN 1000 MG/100 ML VIAL (NON FORMULARY) IVPB ONE (23:17)
[2020-05-19] MEDS ORDERED: SODIUM PHOSPHATE - 0 MM in SODIUM CHLORIDE 250 ML IVPB ONE (23:20)
[2020-05-19 23:26] LABS: PLATELET COUNT 92 K/MM3 (134-434)
[2020-05-19] MEDS ORDERED: SODIUM PHOSPHATE - 30 MM in SODIUM CHLORIDE 250 ML IVPB ONE (23:49)
[2020-05-19] MEDS ORDERED: MIDAZOLAM HCL 2 MG/2 ML SINGLE DOSE VIAL IVPUSH ONE (23:49)
--- NOTE | 2020-05-20 00:18 | PROC ---
Central Line Insertion Indication: Poor Venous Access, Vasopressor Risks and Benefits Explained: No (pt intubated) Consent on Chart: No (pt intubated) Central Line: Triple Lumen Catheter Anesthesia: 1% Lidocaine Sterile Technique: Yes Ultrasound Guided Assistance: No Position: Left Subclavian Post Insertion: Yes: Bilateral Breath Sounds, Bilateral Chest Expansion, Chest X-Ray Ordered Sterile Dressing Applied: Yes
[2020-05-20] MEDS ORDERED: PIPERACILLIN/TAZOBACTAM 2.25 GM VIAL IVPB ONE ×2 (00:21→09:55)
[2020-05-20] MEDS ORDERED: DEXTROSE 5%-WATER - 50 ML IVPB ONE ×2 (00:21→09:55)
[2020-05-20] MEDS: VANCOMYCIN 250 MG/5 ML ORAL SOLUTION PO SCH ×4 (00:57→17:13)
[2020-05-20] MEDS: POTASSIUM CHLORIDE 20 MEQ PREMIX IVPB 100 ML IVPB SCH ×3 (00:57→04:00)
[2020-05-20] MEDS ORDERED: MIDAZOLAM HCL 2 MG/2 ML SINGLE DOSE VIAL IVPUSH ONE (02:11)
[2020-05-20] MEDS: PIPERACILLIN/TAZOB 2.25 GM 2.25 GM in DEXTROSE 5%-WATER - 50 ML IVPB SCH ×2 (03:14→10:06)
[2020-05-20 08:05] LABS: HEMATOCRIT 30.5 % (32.4-45.2); HEMOGLOBIN 9.9 GM/dL (10.7-15.3); MCHC 32.4 g/dl (32.0-36.0); MEAN CELL VOLUME 92.5 fl (80-96); MEAN PLT VOLUME 7.2 fl (7.5-11.1); PLATELET COUNT 95 K/MM3 (134-434); RDW 20.3 % (11.6-15.6); WHITE BLOOD COUNT 12.3 K/mm3 (4.0-10.0)
[2020-05-20 08:07] LABS: INR 1.36 (0.83-1.09); PROTHROMBIN TIME (PATIENT) 16.1 SEC (9.7-13.0)
[2020-05-20 08:09] LABS: ACTIVATED PTT 29.9 SECONDS (25.2-36.5)
[2020-05-20 08:14] LABS: ALBUMIN 1.8 g/dl (3.4-5.0); BILIRUBIN,TOTAL 0.5 mg/dL (0.2-1); BLOOD UREA NITROGEN 34.6 mg/dL (7-18); CALCIUM 7.1 mg/dL (8.5-10.1); CREATININE 2.6 mg/dL (0.55-1.3); MAGNESIUM 2.2 mg/dL (1.8-2.4); PHOSPHOROUS 2.4 mg/dL (2.5-4.9); POTASSIUM 3.8 mmol/L (3.5-5.1); TOT PROT 4.9 g/dl (6.4-8.2)
[2020-05-20] MEDS: PANTOPRAZOLE SODIUM 40 MG VIAL IVPUSH SCH (10:06)
[2020-05-20] MEDS: ZINC OXIDE 20% TOPICAL OINTMENT 30 GM TUBE TP SCH (10:07)
[2020-05-20] MEDS: MUPIROCIN 2% TOPICAL OINTMENT FOR DECOLONIZATION NS SCH ×2 (10:08→21:11)
[2020-05-20] MEDS: NOREPINEPHRINE BITARTRATE 8,000 MCG/500 ML BAG IVPB SCH ×2 (10:08→19:39)
--- NOTE | 2020-05-20 11:40 | PN ---
Teaching Attending Note Name of Resident: Javid Lester ATTENDING PHYSICIAN STATEMENT I saw and evaluated the patient. I reviewed the resident's note and discussed the case with the resident. I agree with the resident's findings and plan as documented. SUBJECTIVE: Pt seen and examined in the ICU. Remains vented, on levophed gtt 15mcgs. Diffuse blanching rash over torso, abdomen. OBJECTIVE: Vital Signs Period Temp Pulse Resp BP Sys/Hernandez Pulse Ox Last 24 Hr 97.4 F-98.4 F 88-121 15-24 86-126/44-77 97-100 Intake & Output 05/17/20 05/18/20 05/19/20 05/20/20 23:59 23:59 23:59 23:59 Intake Total 1550 2063 1364 Output Total 75 9738 Balance 1475 -8577 1364 Weight 81.647 kg 84.3 kg Gen: vented, poorly responsive Heart: RRR Lung: decreased breath sounds at the bases Abd: soft, nontender Ext: no edema CBC, BMP 05/20/20 05:39 05/20/20 05:39 Active Medications Chlorhexidine Gluconate (Hibiclens For Decolonization -) 1 applic TP HS [facility] Last Admin: 05/19/20 22:46 Dose: 1 applic Documented by: Norepinephrine Bitartrate (Levophed Bag) 8,000 mcg in 500 mls @ 18.75 mls/hr IVPB TITR TAMIA; Protocol Last Admin: 05/20/20 10:08 Dose: 15 mcg/min, 56.25 mls/hr Documented by: Sodium Chloride (Normal Saline -) 250 mls @ 3,000 mls/hr IV PRN PRN PRN Reason: Hypotension during Dialysis Stop: 05/20/20 10:07 Multi-Ingredient Ointment (Zinc Oxide) 1 applic TP DAILY [facility] Last Admin: 05/20/20 10:07 Dose: 1 applic Documented by: Mupirocin (Bactroban Ointment (For Decolonization) -) 1 applic NS BID TAMIA Stop: 05/23/20 21:59 Last Admin: 05/20/20 10:08 Dose: 1 applic Documented by: Pantoprazole Sodium (Protonix Iv) 40 mg IVPUSH DAILY [facility] Last Admin: 05/20/20 10:06 Dose: 40 mg Documented by: Vancomycin HCl (Vancomycin Oral Solution) 125 mg PO Q6HPO TAMIA ASSESSMENT AND PLAN: Chronic Respiratory Failure UTI Septic Shock ESRD on HD Atrial Fibrillation Supratherapeutic INR Thrombocytopenia DM r/o Drug Rash - IV benadryl, medrol - d/w ID changing antibiotics due to rash - f/u cultures - titrate pressors to maintain MAP >65 - HD per renal - enteral feeds - DVT/GI prophylaxis - continue ICU monitoring critical care time spent in reviewing chart, evaluating patient and formulating plan 35 min
--- NOTE | 2020-05-20 12:02 | PN ---
Progress Note (short form) - Note Progress Note: RENAL Pt is arousable remains trach Last Vital Signs Temp Pulse Rlungs clear garfield BP Pulse Ox 98.2 F 118 H 21 H 118/47 L 100 05/20/20 10:00 05/20/20 10:00 05/20/20 10:00 05/20/20 10:00 05/20/20 10:00 lungs clear cvs s1s2 rr abd soft ext +edema neuro arousable skin generalized erythematous rash involving palms and soles CBC, BMP 05/20/20 05:39 05/20/20 05:39 Current Medications Generic Name Dose Route Start Last Admin Trade Name Freq PRN Reason Stop Dose Admin Chlorhexidine Gluconate 1 applic 05/18/20 22:00 05/19/20 22:46 Hibiclens For Decolonization - TP 1 applic HS TAMIA Administration Diphenhydramine HCl 50 mg 05/20/20 12:00 Benadryl Injection - IVPB Q6H-IV TAMIA Norepinephrine Bitartrate 8,000 mcg in 500 mls @ 18.75 mls/hr 05/18/20 19:15 05/20/20 10:08 Levophed Bag IVPB 15 mcg/min TITR TAMIA 56.25 mls/hr Administration Protocol 5 MCG/MIN Sodium Chloride 250 mls @ 3,000 mls/hr 05/19/20 10:06 Normal Saline - IV 05/20/20 10:07 PRN PRN Hypotension during Dialysis Methylprednisolone Sodium Succinate 60 mg 05/20/20 11:45 Solu-Medrol - IVPUSH Q8H-IV TAMIA Multi-Ingredient Ointment 1 applic 05/19/20 21:45 05/20/20 10:07 Zinc Oxide TP 1 applic DAILY TAMIA Administration Mupirocin 1 applic 05/18/20 22:00 05/20/20 10:08 Bactroban Ointment (For Decolonization) - NS 05/23/20 21:59 1 applic BID TAMIA Administration Pantoprazole Sodium 40 mg 05/19/20 10:00 05/20/20 10:06 Protonix Iv IVPUSH 40 mg DAILY TAMIA Administration Vancomycin HCl 125 mg 05/20/20 12:00 Vancomycin Oral Solution PO Q6HPO TAMIA IMPRESSION esrd septic shock likely drug rash vent dependence s/p recent catheter dislodgement eosinophilia consistent with drug rash PLAN agree that antibiotics should be changed continue oral vanco start hydration given high requirements for pressors will plan on dialyzing tomorrow would repeat lactic acid MV
[2020-05-20] MEDS ORDERED: SODIUM CHLORIDE 1,000 ML IV SCH (12:15)
[2020-05-20] MEDS: methylPREDNISolone NA SUCC 40 MG/1 ML VIAL IVPUSH SCH ×2 (13:23→17:11)
[2020-05-20] MEDS: FENTANYL IVPB 500 MCG/100 ML BAG IVPB SCH (14:00)
--- NOTE | 2020-05-20 14:09 | PN ---
Progress Note, Physician History of Present Illness: rash all over desquamation of the skin noted wound in the left side of the neck noted - Current Medication List Current Medications: Active Medications Chlorhexidine Gluconate (Hibiclens For Decolonization -) 1 applic TP HS [facility] Last Admin: 05/19/20 22:46 Dose: 1 applic Documented by: Diphenhydramine HCl (Benadryl Injection -) 50 mg IVPB Q6H-IV TAMIA Last Admin: 05/20/20 12:45 Dose: 50 mg Documented by: Norepinephrine Bitartrate (Levophed Bag) 8,000 mcg in 500 mls @ 18.75 mls/hr IVPB TITR TAMIA; Protocol Last Admin: 05/20/20 10:08 Dose: 15 mcg/min, 56.25 mls/hr Documented by: Sodium Chloride (Normal Saline -) 250 mls @ 3,000 mls/hr IV PRN PRN PRN Reason: Hypotension during Dialysis Stop: 05/20/20 10:07 Sodium Chloride (Normal Saline -) 1,000 mls @ 50 mls/hr IV ASDIR TAMIA Stop: 05/21/20 12:09 Last Admin: 05/20/20 12:45 Dose: 50 mls/hr Documented by: Fentanyl (Sublimaze Ivpb) 500 mcg in 100 mls @ 5 mls/hr IVPB TITR [facility]; Protocol Fluconazole (Diflucan 200 Mg/D5w Premixed Ivpb -) 100 mls @ 100 mls/hr IVPB DAILY [facility] Methylprednisolone Sodium Succinate (Solu-Medrol -) 60 mg IVPUSH Q8H-IV [facility] Last Admin: 05/20/20 13:23 Dose: 60 mg Documented by: Multi-Ingredient Ointment (Zinc Oxide) 1 applic TP DAILY [facility] Last Admin: 05/20/20 10:07 Dose: 1 applic Documented by: Mupirocin (Bactroban Ointment (For Decolonization) -) 1 applic NS BID [facility] Stop: 05/23/20 21:59 Last Admin: 05/20/20 10:08 Dose: 1 applic Documented by: Pantoprazole Sodium (Protonix Iv) 40 mg IVPUSH DAILY [facility] Last Admin: 05/20/20 10:06 Dose: 40 mg Documented by: Vancomycin HCl (Vancomycin Oral Solution) 125 mg PO Q6HPO [facility] Last Admin: 05/20/20 12:45 Dose: 125 mg Documented by: - Objective Vital Signs: Vital Signs Temperature 98 F 05/20/20 13:07 Pulse Rate 110 H 05/20/20 13:07 Respiratory Rate 18 05/20/20 13:07 Blood Pressure 101/84 05/20/20 13:07 O2 Sat by Pulse Oximetry (%) 98 05/20/20 13:07 Constitutional: Yes: Other Eyes: Yes: Conjunctiva Clear Neck: Yes: Other (trach in place wound on the left side of the neck noted) Cardiovascular: Yes: S1, S2 Respiratory: Yes: Mechanically Ventilated, Other (trach) Gastrointestinal: Yes: Normal Bowel Sounds, Soft Musculoskeletal: Yes: WNL, Other Extremities: Yes: Other Integumentary: Yes: Rash, Other (flakes over the skin,desqumation) Wound/Incision: Yes: Other Labs: CBC, BMP 05/20/20 05:39 05/20/20 05:39 INR, PTT INR 1.36 (0.83-1.09) H 05/20/20 05:39 - ....Imaging Chest X-ray: Report Reviewed, Image Reviewed Assessment/Plan this patient with multiple medical issues now in septic shock all cx reports noted Chronic Respiratory Failure UTI Septic Shock ESRD on HD Atrial Fibrillation Supratherapeutic INR DM Drug Rash plan consider starting diflucan as per renal function as per icu mgmt rest as per the team monitor rash continue pressors as needed cc 40 min
[2020-05-20] MEDS ORDERED: FLUCONAZOLE 200 MG/NS 100 ML IVPB SCH (14:15)
[2020-05-20] MEDS ORDERED: FLUCONAZOLE 200 MG/D5W 100 ML IVPB SCH (14:15)
--- NOTE | 2020-05-20 15:21 | PN ---
Physical Exam: SUBJECTIVE: Patient seen and examined. Tachycardia to 180 that resolved quickly. On norepi @ 15 mcg/min. L femoral line taken out OBJECTIVE: Vital Signs Period Temp Pulse Resp BP Sys/Hernandez Pulse Ox Last 24 Hr 98 F-98.4 F 102-121 15-24 86-126/33-84 97-100 GENERAL: The patient is awake, alert. Non-verbal. Responds to painful stimuli HEAD: NC, ulcers on L neck. Wounds on L chin and behind L ear. PERRL. No ptosis. MMM m LUNGS: venti breath sounds. HEART: Regular rate and rhythm, S1, S2 without murmur, rub or gallop. ABDOMEN: obese, Soft, nontender, nondistended, normoactive bowel sounds, LUQ peg tube EXTREMITIES: 2+ pulses, warm, well-perfused, 3+ pitting edema b/l LE. 2+ pitting edema b/l UE. legs erythematous, scaling SKIN: Warm, dry, diffuse erythema throughout entire body. Laboratory Results - last 24 hr 05/18/20 05/19/20 05/19/20 12:30 14:40 21:47 WBC RBC Hgb Hct MCV MCH MCHC RDW Plt Count MPV Manual Slide Review Platelet Comment PT with INR INR PTT (Actin FS) Sodium Potassium Chloride Carbon Dioxide Anion Gap BUN Creatinine Est GFR (CKD-EPI)AfAm Est GFR (CKD-EPI)NonAf Random Glucose Lactic Acid 2.6 H* Calcium Phosphorus Magnesium Total Bilirubin AST ALT Alkaline Phosphatase Total Protein Albumin Blood Type O POSITIVE O POSITIVE Antibody Screen Negative Crossmatch See Detail 05/19/20 05/19/20 05/20/20 21:59 21:59 05:39 WBC 11.7 H RBC 3.32 L Hgb 9.9 L Hct 30.9 L D MCV 93.0 MCH 29.9 MCHC 32.2 RDW 20.8 H Plt Count 92 L D MPV 7.1 L Manual Slide Review Giant platelets Platelet Comment Decreased PT with INR INR PTT (Actin FS) Sodium 141 Potassium 2.9 L* Chloride 103 Carbon Dioxide 29 Anion Gap 8 BUN 32.4 H Creatinine 2.3 H Est GFR (CKD-EPI)AfAm 21.43 Est GFR (CKD-EPI)NonAf 18.49 Random Glucose 152 H Lactic Acid Calcium 7.9 L Phosphorus 1.0 L* Magnesium 2.5 H Total Bilirubin 0.6 AST 19 ALT 13 Alkaline Phosphatase 77 Total Protein 5.0 L Albumin 1.9 L Blood Type O POSITIVE Antibody Screen Negative Crossmatch 05/20/20 05/20/20 05/20/20 05:39 05:39 05:39 WBC 12.3 H RBC 3.30 L Hgb 9.9 L Hct 30.5 L MCV 92.5 MCH 30.0 MCHC 32.4 RDW 20.3 H Plt Count 95 L MPV 7.2 L Manual Slide Review Platelet Comment PT with INR 16.10 H INR 1.36 H PTT (Actin FS) 29.9 Sodium 139 Potassium 3.8 Chloride 104 Carbon Dioxide 29 Anion Gap 7 L BUN 34.6 H Creatinine 2.6 H Est GFR (CKD-EPI)AfAm 18.48 Est GFR (CKD-EPI)NonAf 15.94 Random Glucose 130 H Lactic Acid Calcium 7.1 L Phosphorus 2.4 L Magnesium 2.2 Total Bilirubin 0.5 AST 17 ALT 13 Alkaline Phosphatase 73 Total Protein 4.9 L Albumin 1.8 L Blood Type Antibody Screen Crossmatch Active Medications Generic Name Dose Route Start Last Admin Trade Name Freq PRN Reason Stop Dose Admin Chlorhexidine Gluconate 1 applic 05/18/20 22:00 05/19/20 22:46 Hibiclens For Decolonization - TP 1 applic HS TAMIA Administration Diphenhydramine HCl 50 mg 05/20/20 12:00 05/20/20 12:45 Benadryl Injection - IVPB 50 mg Q6H-IV TAMIA Administration Norepinephrine Bitartrate 8,000 mcg in 500 mls @ 18.75 mls/hr 05/18/20 19:15 05/20/20 10:08 Levophed Bag IVPB 15 mcg/min TITR TAMIA 56.25 mls/hr Administration Protocol 5 MCG/MIN Sodium Chloride 250 mls @ 3,000 mls/hr 05/19/20 10:06 Normal Saline - IV 05/20/20 10:07 PRN PRN Hypotension during Dialysis Sodium Chloride 1,000 mls @ 50 mls/hr 05/20/20 12:15 05/20/20 12:45 Normal Saline - IV 05/21/20 12:09 50 mls/hr ASDIR TAMIA Administration Fentanyl 500 mcg in 100 mls @ 5 mls/hr 05/20/20 14:00 Sublimaze Ivpb IVPB TITR TAMIA Protocol 25 MCG/HR Fluconazole 100 mls @ 100 mls/hr 05/20/20 14:15 Diflucan 200 Mg/Ns Premixed Ivpb - IVPB DAILY TAMIA Methylprednisolone Sodium Succinate 60 mg 05/20/20 11:45 05/20/20 13:23 Solu-Medrol - IVPUSH 60 mg Q8H-IV TAMIA Administration Multi-Ingredient Ointment 1 applic 05/19/20 21:45 05/20/20 10:07 Zinc Oxide TP 1 applic DAILY TAMIA Administration Mupirocin 1 applic 05/18/20 22:00 05/20/20 10:08 Bactroban Ointment (For Decolonization) - NS 05/23/20 21:59 1 applic BID TAMIA Administration Pantoprazole Sodium 40 mg 05/19/20 10:00 05/20/20 10:06 Protonix Iv IVPUSH 40 mg DAILY TAMIA Administration Vancomycin HCl 125 mg 05/20/20 12:00 05/20/20 12:45 Vancomycin Oral Solution PO 125 mg Q6HPO TAMIA Administration ASSESSMENT/PLAN: 89 YO F PMH dementia, GERD, ESRD on HD, afib, candidasis (skin/nails), DM type 2, congenital rectovaginal fistula, unspecified dysphagia, insomnia, tracheostomy and PEG tube was referred from [facility] for severe hypotension and AMS. Admitted to ICU for Septic shock 2/2 likely UTI. Neuro: -Alert and awake, but non-non verbal -fentantyl drip for pain Pulm: #Chronic respiratory failure -patient has trach - CXR: Single view of the chest reveals a weak inspiratory effort with tracheostomy tube tip well above ivan, right jugular line tip in right atrium, sclerotic knob, normal jessica and normal heart. There is some blunting of the left angle with left base atelectasis. There is no sign of infiltrate or failure. Pneumothorax is not seen. There are degenerative spine and shoulder changes with possible old trauma involving the left shoulder. Cardio: #afib - trop neg -levophed 15 mcg/min for hypotension. BP stable ID: - sepsis: 2/2 UTI, + UA, HR 102, temp 97, BP 84/51, WBC 12.6 -UA: 3+ protein, 2+ blood, 106.8 RBCs, Leuko chris 3+, WBCs 55136, bacteria 7509, epithelial cells 18 -Ucx: >100,000. Ordered a urine culture repeat, but patient is oliguirc. -Blood cx: no growth to date - s/p Vanc, zosyn, rocephin in ED - h/o cdiff, C diff antigen (organism) +, c diff toxin assay neg -s/p zosyn. Continue with vancomycin 125 PO Q6H as IV vanc is more likely to cause derm reactions -lactic acidosis trending down -Diflucan 100 mg IV daily started for fungal infection. Heme: - INR 8: supratherapeutic on admission, s/p FFP -takes warfarin at home. will continue holding home warfarin and other AC -f/u PT/INR, PTT Renal: - cortes - ESRD on HD -BUN/Cr increased to 34.6/2.6 -neprhology consult appreciated. plan on dialysis tomorrow -[id number] O/ [id number] balance GI - h/o cdiff, given po vanc & flagyl in ED -continue with vancomycin 125 PO Q6H - protonix 40 IV daily for GI ppx Derm: - diffuse erythema and scaling. -h/o gregorio infection on skin -discussed with ID. either a reaction to medication or fungal infection. > Diflucan 100 mg IV daily started for fungal infection. Uptodate recommending reducing diflucan dose for those with renal impairment. > solumedrol 60 Q8H -spoke to daughter and [facility] who both denied any allergies to medications or past reactions to medications. Faxing release of information sheet to [facility] for patient's past medical records to investigate a llergies to medications or past reactions to medications. FEN NS@50 ml /hr montior lytes tube feed nepro DVT PPX - holding AC 2/2 supratherapeutic INR on admission -scds Lines Left subclavian triple lumen (05/20). CAN USE Left subclavian triple lumen. R femoral line (05/18) taken out today on 05/20 LUQ peg tube (arrived with it) R permacath cortes Dispo: maintain ICU Visit type - Emergency Visit Emergency Visit: Yes ED Registration Date: 05/18/20 Care time: The patient presented to the Emergency Department on the above date and was hospitalized for further evaluation of their emergent condition. - New Patient This patient is new to me today: No - Critical Care Critical Care patient: No - Medication Review Med list reviewed for High Risk Meds patients 65 and older: Yes ATTENDING PHYSICIAN STATEMENT I saw and evaluated the patient. I reviewed the resident's note and discussed the case with the resident. I agree with the resident's findings and plan as documented. SUBJECTIVE: OBJECTIVE: ASSESSMENT AND PLAN:
[2020-05-20] MEDS ORDERED: FLUCONAZOLE 100 MG/NS 50 ML IVPB ONE (16:50)
[2020-05-20] MEDS: CHLORHEXIDINE GLUCONATE 4% CLEANSER FOR DECOLONIZATION TP SCH (21:12)
[2020-05-21] MEDS: VANCOMYCIN 250 MG/5 ML ORAL SOLUTION PO SCH ×4 (00:21→17:39)
[2020-05-21] MEDS: methylPREDNISolone NA SUCC 40 MG/1 ML VIAL IVPUSH SCH ×3 (02:03→17:39)
[2020-05-21 02:39] LABS: EPI CELLS >36 /uL (0-25.1); PH,URINE 5.5 (5.0-8.0); URINE APPEARANCE CLOUDY; URINE BACTERIA 50 /uL (0-1359); URINE BILIRUBIN NEGATIVE (NEGATIVE); URINE COLOR YELLOW; URINE GLUCOSE (UA) 1+ (NEGATIVE); URINE KETONE TRACE (NEGATIVE); URINE LEUK ESTERASE NEGATIVE (NEGATIVE); URINE NITRITE NEGATIVE (NEGATIVE); URINE PROTEIN 3+ (NEGATIVE); URINE UROBILINOGEN 0.2 mg/dL (0.2-1.0)
[2020-05-21 04:20] LABS: HYALINE CASTS 28 /uL (0-3.1)
[2020-05-21 07:02] LABS: ARTERIAL BLD GAS O2 SATURATION 98.8 mmHg (95-98); ARTERIAL BLOOD GAS PO2 141.2 mmHg (80-100); ARTERIAL BLOOD GAS pH 7.397 (7.350-7.450)
[2020-05-21 07:10] LABS: ALLENS TEST POSITIVE
[2020-05-21 07:11] LABS: VENT MODE A/C; VENT RATE 15
[2020-05-21 07:14] LABS: BASO % 1.1 % (0-2.0); EOS % 0.1 % (0-4.5); HEMATOCRIT 31.8 % (32.4-45.2); HEMOGLOBIN 10.4 GM/dL (10.7-15.3); INR 1.76 (0.83-1.09); LYMPH % 8.9 % (8-40); MCH 30.5 pg (25.7-33.7); MCHC 32.8 g/dl (32.0-36.0); MEAN CELL VOLUME 92.8 fl (80-96); MEAN PLT VOLUME 7.5 fl (7.5-11.1); MONO % 1.2 % (3.8-10.2); NEUT % 88.7 % (42.8-82.8); PLATELET COUNT 112 K/MM3 (134-434); PROTHROMBIN TIME (PATIENT) 20.9 SEC (9.7-13.0); RBC 3.43 M/mm3 (3.60-5.2); RDW 21.9 % (11.6-15.6); WHITE BLOOD COUNT 6.1 K/mm3 (4.0-10.0)
[2020-05-21 07:16] LABS: ACTIVATED PTT 33.6 SECONDS (25.2-36.5)
[2020-05-21 07:33] LABS: ALBUMIN 1.8 g/dl (3.4-5.0); BILIRUBIN,TOTAL 0.4 mg/dL (0.2-1); BLOOD UREA NITROGEN 38.2 mg/dL (7-18); MAGNESIUM 2.5 mg/dL (1.8-2.4); PHOSPHOROUS 3.3 mg/dL (2.5-4.9); POTASSIUM 3.6 mmol/L (3.5-5.1); TOT PROT 4.9 g/dl (6.4-8.2)
[2020-05-21 07:47] LABS: CALCIUM 6.9 mg/dL (8.5-10.1)
[2020-05-21] MEDS ORDERED: SODIUM CHLORIDE 250 ML IV PRN (08:00)
[2020-05-21] MEDS ORDERED: PT OWN MED DRAWER 7, Y5N ONE (10:42)
--- NOTE | 2020-05-21 11:08 | PN ---
Progress Note, Physician Chief Complaint: Sepsis History of Present Illness: Seen and examined at the bedside Currently getting dialysis UF goal is 2L BP is marginal access working well on vent via trach arouseable - Current Medication List Current Medications: Active Medications Chlorhexidine Gluconate (Hibiclens For Decolonization -) 1 applic TP HS [facility] Last Admin: 05/20/20 21:12 Dose: 1 applic Documented by: Diphenhydramine HCl (Benadryl Injection -) 50 mg IVPB Q6H-IV [facility] Last Admin: 05/21/20 02:47 Dose: 50 mg Documented by: Norepinephrine Bitartrate (Levophed Bag) 8,000 mcg in 500 mls @ 18.75 mls/hr IVPB TITR [facility]; Protocol Last Titration: 05/21/20 03:30 Dose: 8 mcg/min, 30 mls/hr Documented by: Sodium Chloride (Normal Saline -) 250 mls @ 3,000 mls/hr IV PRN PRN PRN Reason: Hypotension during Dialysis Stop: 05/20/20 10:07 Sodium Chloride (Normal Saline -) 1,000 mls @ 50 mls/hr IV ASDIR [facility] Stop: 05/21/20 12:09 Last Admin: 05/20/20 12:45 Dose: 50 mls/hr Documented by: Fentanyl (Sublimaze Ivpb) 500 mcg in 100 mls @ 5 mls/hr IVPB TITR [facility]; Protocol Last Titration: 05/20/20 20:00 Dose: 25 mcg/hr, 5 mls/hr Documented by: Fluconazole (Diflucan 100 Mg/Ns Premixed Ivpb -) 50 mls @ 50 mls/hr IVPB DAILY [facility] Sodium Chloride (Normal Saline -) 250 mls @ 3,000 mls/hr IV PRN PRN PRN Reason: Hypotension during Dialysis Stop: 05/22/20 08:00 Methylprednisolone Sodium Succinate (Solu-Medrol -) 60 mg IVPUSH Q8H-IV [facility] Last Admin: 05/21/20 02:03 Dose: 60 mg Documented by: Multi-Ingredient Ointment (Zinc Oxide) 1 applic TP DAILY [facility] Last Admin: 05/20/20 10:07 Dose: 1 applic Documented by: Mupirocin (Bactroban Ointment (For Decolonization) -) 1 applic NS BID [facility] Stop: 05/23/20 21:59 Last Admin: 05/20/20 21:11 Dose: 1 applic Documented by: Pantoprazole Sodium (Protonix Iv) 40 mg IVPUSH DAILY [facility] Last Admin: 05/20/20 10:06 Dose: 40 mg Documented by: Vancomycin HCl (Vancomycin Oral Solution) 125 mg PO Q6HPO [facility] Last Admin: 05/21/20 06:30 Dose: 125 mg Documented by: - Objective Vital Signs: Vital Signs Temperature 98.4 F 05/21/20 08:00 Pulse Rate 107 H 05/21/20 10:15 Respiratory Rate 18 05/21/20 10:15 Blood Pressure 87/66 L 05/21/20 10:15 O2 Sat by Pulse Oximetry (%) 100 05/21/20 07:28 Constitutional: Yes: No Distress Cardiovascular: Yes: Regular Rate and Rhythm Respiratory: Yes: Mechanically Ventilated Gastrointestinal: Yes: Soft Extremities: No: Cyanosis Edema: Yes Labs: CBC, BMP 05/21/20 06:00 05/21/20 06:00 INR, PTT INR 1.76 (0.83-1.09) H 05/21/20 06:00 Assessment/Plan IMPRESSION esrd septic shock likely drug rash vent dependence s/p recent catheter dislodgement eosinophilia consistent with drug rash PLAN Tolerating dialysis with goal UF of 1-1.5L reduced UF goal as BP is marginal. can continue gentle hydration as needed cent support ABx as per ICU/ID ICU monitoring. MV
[2020-05-21] MEDS: MUPIROCIN 2% TOPICAL OINTMENT FOR DECOLONIZATION NS SCH ×2 (11:12→22:04)
[2020-05-21] MEDS: FLUCONAZOLE 100 MG/NS 50 ML IVPB SCH (11:12)
[2020-05-21] MEDS: ZINC OXIDE 20% TOPICAL OINTMENT 30 GM TUBE TP SCH (11:12)
[2020-05-21] MEDS: PANTOPRAZOLE SODIUM 40 MG VIAL IVPUSH SCH (11:12)
[2020-05-21] MEDS ORDERED: fentaNYL CITRATE 250 MCG/5 ML VIAL ONE (12:21)
--- NOTE | 2020-05-21 12:33 | PN ---
Progress Note, Physician History of Present Illness: continues to be on trach being dialysed skin rash improving - Current Medication List Current Medications: Active Medications Chlorhexidine Gluconate (Hibiclens For Decolonization -) 1 applic TP HS [facility] Last Admin: 05/20/20 21:12 Dose: 1 applic Documented by: Diphenhydramine HCl (Benadryl Injection -) 50 mg IVPB Q6H-IV [facility] Last Admin: 05/21/20 11:12 Dose: 50 mg Documented by: Norepinephrine Bitartrate (Levophed Bag) 8,000 mcg in 500 mls @ 18.75 mls/hr IVPB TITR [facility]; Protocol Last Titration: 05/21/20 03:30 Dose: 8 mcg/min, 30 mls/hr Documented by: Fentanyl (Sublimaze Ivpb) 500 mcg in 100 mls @ 5 mls/hr IVPB TITR [facility]; Protocol Last Titration: 05/20/20 20:00 Dose: 25 mcg/hr, 5 mls/hr Documented by: Fluconazole (Diflucan 100 Mg/Ns Premixed Ivpb -) 50 mls @ 50 mls/hr IVPB DAILY [facility] Last Admin: 05/21/20 11:12 Dose: 50 mls/hr Documented by: Sodium Chloride (Normal Saline -) 250 mls @ 3,000 mls/hr IV PRN PRN PRN Reason: Hypotension during Dialysis Stop: 05/22/20 08:00 Methylprednisolone Sodium Succinate (Solu-Medrol -) 60 mg IVPUSH Q8H-IV [facility] Last Admin: 05/21/20 11:12 Dose: 60 mg Documented by: Multi-Ingredient Ointment (Zinc Oxide) 1 applic TP DAILY [facility] Last Admin: 05/21/20 11:12 Dose: 1 applic Documented by: Mupirocin (Bactroban Ointment (For Decolonization) -) 1 applic NS BID [facility] Stop: 05/23/20 21:59 Last Admin: 05/21/20 11:12 Dose: 1 applic Documented by: Pantoprazole Sodium (Protonix Iv) 40 mg IVPUSH DAILY [facility] Last Admin: 05/21/20 11:12 Dose: 40 mg Documented by: Vancomycin HCl (Vancomycin Oral Solution) 125 mg PO Q6HPO [facility] Last Admin: 05/21/20 12:02 Dose: 125 mg Documented by: - Objective Vital Signs: Vital Signs Temperature 98.4 F 05/21/20 08:00 Pulse Rate 98 H 05/21/20 12:08 Respiratory Rate 24 H 05/21/20 12:08 Blood Pressure 96/53 L 05/21/20 11:26 O2 Sat by Pulse Oximetry (%) 99 05/21/20 12:08 Constitutional: Yes: Other Cardiovascular: Yes: S1, S2 Respiratory: Yes: Mechanically Ventilated, Poor Air Entry, Other (on trach) Gastrointestinal: Yes: Normal Bowel Sounds, Soft Musculoskeletal: Yes: WNL Extremities: Yes: WNL Integumentary: Yes: Rash Neurological: Yes: Alert, Other Labs: CBC, BMP 05/21/20 06:00 05/21/20 06:00 INR, PTT INR 1.76 (0.83-1.09) H 05/21/20 06:00 - ....Imaging Chest X-ray: Report Reviewed, Image Reviewed Assessment/Plan this patient with multiple medical issues now in septic shock all cx reports noted Chronic Respiratory Failure UTI Septic Shock ESRD on HD Atrial Fibrillation Supratherapeutic INR DM Drug Rash plan diflucan as per icu mgmt rest as per the team monitor rash urine cx results noted cc 40 min
[2020-05-21] MEDS: FENTANYL IVPB 500 MCG/100 ML BAG IVPB SCH ×2 (14:00→22:00)
--- NOTE | 2020-05-21 15:19 | PN ---
Progress Note (short form) - Note Progress Note: PULM/CCM Pt seen and examined in the ICU. On the vent via trach, on levophed gtt 8 mcgs. Diffuse blanching rash all over the body. S/p HD today Vital Signs Period Temp Pulse Resp BP Sys/Hernandez Pulse Ox Last 24 Hr 98.3 F-98.4 F 73-117 15-24 87-127/50-75 98-100 Intake & Output 05/18/20 05/19/20 05/20/20 05/21/20 23:59 23:59 23:59 23:59 Intake Total 1550 2063 2977 3100 Output Total 75 9738 25 69221 Balance 5561 -7252 3117 -8991 Weight 81.647 kg 84.3 kg 83.915 kg Gen: vented, poorly responsive Heart: RRR Lung: decreased breath sounds at the bases Abd: soft, nontender Ext: no edema CBC, BMP 05/21/20 06:00 05/21/20 06:00 Active Medications Chlorhexidine Gluconate (Hibiclens For Decolonization -) 1 applic TP HS [facility] Last Admin: 05/21/20 22:04 Dose: 1 applic Documented by: Diphenhydramine HCl (Benadryl Injection -) 50 mg IVPB Q6H-IV [facility] Last Admin: 05/21/20 22:04 Dose: 50 mg Documented by: Norepinephrine Bitartrate (Levophed Bag) 8,000 mcg in 500 mls @ 18.75 mls/hr IVPB TITR [facility]; Protocol Last Admin: 05/21/20 21:32 Dose: Not Given Documented by: Fentanyl (Sublimaze Ivpb) 500 mcg in 100 mls @ 5 mls/hr IVPB TITR [facility]; Protocol Last Admin: 05/21/20 14:00 Dose: 25 mcg/hr, 5 mls/hr Documented by: Fluconazole (Diflucan 100 Mg/Ns Premixed Ivpb -) 50 mls @ 50 mls/hr IVPB DAILY [facility] Last Admin: 05/21/20 11:12 Dose: 50 mls/hr Documented by: Sodium Chloride (Normal Saline -) 250 mls @ 3,000 mls/hr IV PRN PRN PRN Reason: Hypotension during Dialysis Stop: 05/22/20 08:00 Methylprednisolone Sodium Succinate (Solu-Medrol -) 60 mg IVPUSH Q8H-IV [facility] Last Admin: 05/21/20 17:39 Dose: 60 mg Documented by: Multi-Ingredient Ointment (Zinc Oxide) 1 applic TP DAILY [facility] Last Admin: 05/21/20 11:12 Dose: 1 applic Documented by: Mupirocin (Bactroban Ointment (For Decolonization) -) 1 applic NS BID [facility] Stop: 05/23/20 21:59 Last Admin: 05/21/20 22:04 Dose: 1 applic Documented by: Pantoprazole Sodium (Protonix Iv) 40 mg IVPUSH DAILY [facility] Last Admin: 05/21/20 11:12 Dose: 40 mg Documented by: Vancomycin HCl (Vancomycin Oral Solution) 125 mg PO Q6HPO [facility] Last Admin: 05/21/20 17:39 Dose: 125 mg Documented by: ASSESSMENT AND PLAN: Chronic Respiratory Failure UTI Septic Shock ESRD on HD Atrial Fibrillation Supratherapeutic INR Thrombocytopenia DM r/o Drug Rash - IV benadryl, medrol - d/w ID changing antibiotics due to rash - f/u cultures - titrate pressors to maintain MAP >65 - HD per renal - enteral feeds - Continue Vanco PO for hx of Cdiff - Continue antifungal coverage - DVT/GI prophylaxis - continue ICU monitoring Ruby Decker ACNP [id number]
[2020-05-21 21:06] LABS: HEP B CORE AB, TOT Negative (Negative)
[2020-05-21] MEDS: NOREPINEPHRINE BITARTRATE 8,000 MCG/500 ML BAG IVPB SCH ×2 (21:32→22:00)
[2020-05-21] MEDS: CHLORHEXIDINE GLUCONATE 4% CLEANSER FOR DECOLONIZATION TP SCH (22:04)
[2020-05-22] MEDS: methylPREDNISolone NA SUCC 40 MG/1 ML VIAL IVPUSH SCH ×3 (01:27→18:00)
[2020-05-22] MEDS: VANCOMYCIN 250 MG/5 ML ORAL SOLUTION PO SCH ×4 (01:27→18:00)
[2020-05-22] MEDS ORDERED: METOPROLOL TARTRATE 5 MG/5 ML VIAL ONE ×2 (03:12→22:29)
[2020-05-22] MEDS ORDERED: METOPROLOL TARTRATE 5 MG/5 ML VIAL IVPUSH ONE (04:38)
[2020-05-22 06:33] LABS: ARTERIAL BLD GAS O2 SATURATION 98.5 mmHg (95-98); ARTERIAL BLOOD GAS BASE EXCESS -3.5 mmol/L (-2-2); ARTERIAL BLOOD GAS PO2 126.4 mmHg (80-100); ARTERIAL BLOOD GAS pH 7.398 (7.350-7.450)
[2020-05-22 07:03] LABS: BASO % 0.1 % (0-2.0); HEMATOCRIT 31.6 % (32.4-45.2); HEMOGLOBIN 10.1 GM/dL (10.7-15.3); LYMPH % 7.9 % (8-40); MCH 30.4 pg (25.7-33.7); MCHC 31.9 g/dl (32.0-36.0); MEAN CELL VOLUME 95.2 fl (80-96); MEAN PLT VOLUME 7.9 fl (7.5-11.1); MONO % 2.1 % (3.8-10.2); NEUT % 89.9 % (42.8-82.8); PLATELET COUNT 140 K/MM3 (134-434); RBC 3.32 M/mm3 (3.60-5.2); RDW 22.4 % (11.6-15.6); WHITE BLOOD COUNT 9.1 K/mm3 (4.0-10.0)
[2020-05-22 07:15] LABS: ALLENS TEST POSITIVE
[2020-05-22 07:16] LABS: VENT MODE A/C; VENT RATE 15
[2020-05-22 07:37] LABS: BILIRUBIN,TOTAL 0.5 mg/dL (0.2-1); CALCIUM 7.3 mg/dL (8.5-10.1); CREATININE 2.3 mg/dL (0.55-1.3); MAGNESIUM 2.3 mg/dL (1.8-2.4); PHOSPHOROUS 2.8 mg/dL (2.5-4.9); POTASSIUM 3.7 mmol/L (3.5-5.1); TOT PROT 5.1 g/dl (6.4-8.2)
[2020-05-22] MEDS: PANTOPRAZOLE SODIUM 40 MG VIAL IVPUSH SCH (10:14)
[2020-05-22] MEDS: FLUCONAZOLE 100 MG/NS 50 ML IVPB SCH (10:16)
[2020-05-22] MEDS: FENTANYL IVPB 500 MCG/100 ML BAG IVPB SCH (10:21)
[2020-05-22] MEDS ORDERED: FENTANYL IVPB 500 MCG/100 ML BAG IVPB ONE (10:21)
[2020-05-22] MEDS: MUPIROCIN 2% TOPICAL OINTMENT FOR DECOLONIZATION NS SCH ×2 (10:22→22:05)
[2020-05-22] MEDS: ZINC OXIDE 20% TOPICAL OINTMENT 30 GM TUBE TP SCH (10:23)
--- NOTE | 2020-05-22 10:24 | PN ---
Progress Note, Physician Chief Complaint: Sepsis History of Present Illness: Seen and examined at the bedside s/p dialysis yesterday on Vasopressers on vent via trach no fevers - Current Medication List Current Medications: Active Medications Chlorhexidine Gluconate (Hibiclens For Decolonization -) 1 applic TP HS [facility] Last Admin: 05/21/20 22:04 Dose: 1 applic Documented by: Diphenhydramine HCl (Benadryl Injection -) 50 mg IVPB Q6H-IV [facility] Last Admin: 05/22/20 03:00 Dose: 50 mg Documented by: Norepinephrine Bitartrate (Levophed Bag) 8,000 mcg in 500 mls @ 18.75 mls/hr IVPB TITR [facility]; Protocol Last Admin: 05/21/20 22:00 Dose: 6 mcg/min, 22.5 mls/hr Documented by: Fentanyl (Sublimaze Ivpb) 500 mcg in 100 mls @ 5 mls/hr IVPB TITR [facility]; Protocol Last Admin: 05/21/20 22:00 Dose: 25 mcg/hr, 5 mls/hr Documented by: Fluconazole (Diflucan 100 Mg/Ns Premixed Ivpb -) 50 mls @ 50 mls/hr IVPB DAILY [facility] Last Admin: 05/21/20 11:12 Dose: 50 mls/hr Documented by: Sodium Chloride (Normal Saline -) 250 mls @ 3,000 mls/hr IV PRN PRN PRN Reason: Hypotension during Dialysis Stop: 05/22/20 08:00 Methylprednisolone Sodium Succinate (Solu-Medrol -) 60 mg IVPUSH Q8H-IV [facility] Last Admin: 05/22/20 01:27 Dose: 60 mg Documented by: Multi-Ingredient Ointment (Zinc Oxide) 1 applic TP DAILY [facility] Last Admin: 05/21/20 11:12 Dose: 1 applic Documented by: Mupirocin (Bactroban Ointment (For Decolonization) -) 1 applic NS BID [facility] Stop: 05/23/20 21:59 Last Admin: 05/21/20 22:04 Dose: 1 applic Documented by: Pantoprazole Sodium (Protonix Iv) 40 mg IVPUSH DAILY [facility] Last Admin: 05/21/20 11:12 Dose: 40 mg Documented by: Vancomycin HCl (Vancomycin Oral Solution) 125 mg PO Q6HPO [facility] Last Admin: 05/22/20 05:49 Dose: 125 mg Documented by: - Objective Vital Signs: Vital Signs Temperature 98.3 F 05/22/20 06:00 Pulse Rate 82 05/22/20 08:25 Respiratory Rate 18 05/22/20 08:25 Blood Pressure 104/72 05/22/20 06:00 O2 Sat by Pulse Oximetry (%) 99 05/22/20 08:25 Constitutional: Yes: No Distress HENT: Yes: Atraumatic Cardiovascular: Yes: Regular Rate and Rhythm Respiratory: Yes: Mechanically Ventilated Gastrointestinal: Yes: Soft Extremities: No: Cyanosis Edema: Yes Labs: CBC, BMP 05/22/20 05:30 05/22/20 05:30 INR, PTT INR 1.76 (0.83-1.09) H 05/21/20 06:00 Assessment/Plan IMPRESSION esrd septic shock likely drug rash vent dependence s/p recent catheter dislodgement eosinophilia consistent with drug rash PLAN s/p dialysis yesterday, no acute need for renal replacement therapy today. Continue ICU mangement, titrate vasopressers as needed can give PRN saline bolus as needed to maintain goal MAP ABx as per ICU/ID Deandre Donis DO
--- NOTE | 2020-05-22 14:03 | PN ---
Progress Note (short form) - Note Progress Note: PULM/CCM Pt seen and examined in the ICU. Drug rash appears stable. Remains comfortable on the Vent. Active Medications Chlorhexidine Gluconate (Hibiclens For Decolonization -) 1 applic TP HS [facility] Last Admin: 05/21/20 22:04 Dose: 1 applic Documented by: Diphenhydramine HCl (Benadryl Injection -) 50 mg IVPB Q6H-IV [facility] Last Admin: 05/22/20 10:16 Dose: 50 mg Documented by: Norepinephrine Bitartrate (Levophed Bag) 8,000 mcg in 500 mls @ 18.75 mls/hr IVPB TITR [facility]; Protocol Last Admin: 05/21/20 22:00 Dose: 6 mcg/min, 22.5 mls/hr Documented by: Fentanyl (Sublimaze Ivpb) 500 mcg in 100 mls @ 5 mls/hr IVPB TITR [facility]; Protocol Last Admin: 05/22/20 10:21 Dose: 25 mcg/hr, 5 mls/hr Documented by: Fluconazole (Diflucan 100 Mg/Ns Premixed Ivpb -) 50 mls @ 50 mls/hr IVPB DAILY [facility] Last Admin: 05/22/20 10:16 Dose: 50 mls/hr Documented by: Sodium Chloride (Normal Saline -) 250 mls @ 3,000 mls/hr IV PRN PRN PRN Reason: Hypotension during Dialysis Stop: 05/22/20 08:00 Methylprednisolone Sodium Succinate (Solu-Medrol -) 60 mg IVPUSH Q8H-IV [facility] Last Admin: 05/22/20 10:14 Dose: 60 mg Documented by: Multi-Ingredient Ointment (Zinc Oxide) 1 applic TP DAILY [facility] Last Admin: 05/22/20 10:23 Dose: 1 applic Documented by: Mupirocin (Bactroban Ointment (For Decolonization) -) 1 applic NS BID [facility] Stop: 05/23/20 21:59 Last Admin: 05/22/20 10:22 Dose: 1 applic Documented by: Pantoprazole Sodium (Protonix Iv) 40 mg IVPUSH DAILY [facility] Last Admin: 05/22/20 10:14 Dose: 40 mg Documented by: Vancomycin HCl (Vancomycin Oral Solution) 125 mg PO Q6HPO [facility] Last Admin: 05/22/20 11:07 Dose: 125 mg Documented by: Vital Signs Period Temp Pulse Resp BP Sys/Hernandez Pulse Ox Last 24 Hr 97.6 F-98.3 F 82-170 16-20 91-125/57-93 98-100 Intake & Output 05/19/20 05/20/20 05/21/20 05/22/20 23:59 23:59 23:59 23:59 Intake Total 2063 2977 3100 1686 Output Total 9738 25 98375 50 Balance -7675 2952 -4557 1636 Weight 84.3 kg 83.915 kg 87.231 kg GEN: Elderly woman VDRF w/ Trach, poorly responsive Lung: decreased breath sounds at the bases Heart: nml S1, S2, RR, unable to apprecite any G/M/R Abd: + BS, S/S N/T N/D X4Q Ext: + Pulese, WWPX4, (-) edema CBC, BMP 05/22/20 05:30 05/22/20 05:30 Microbiology 05/18/20 13:20 Blood - Peripheral Venous Blood Culture - Preliminary NO GROWTH OBTAINED AFTER 96 HOURS, INCUBATION TO CONTINUE FOR 1 DAYS. 05/18/20 12:30 Blood - Peripheral Venous Blood Culture - Preliminary NO GROWTH OBTAINED AFTER 96 HOURS, INCUBATION TO C ONTINUE FOR 1 DAYS. 05/21/20 02:00 Urine - Urine Ospina Urine Culture - Preliminary Group D Strep Or Entero Coccus 05/18/20 12:30 Urine - Urine [place] Urine Culture - Final Contaminated: Please Repeat 05/18/20 13:27 Stool Clostridioides difficile Antigen - Final 05/18/20 13:27 Stool Clostridioides difficile Toxin Assay - Final RECENT STUDIES TO NOTE: CXR 05/20: The chest is been submitted. Since the prior study of 05-18-2020, a left subclavian line has been inserted and the tip is heading into the SVC cephalad. This should be repositioned to go towards the heart. The right jugular line and tracheostomy tube persists. The lungs are clear. There is a weak inspiration. There is no sign of a pneumothorax. Impression: Please reposition left central line to head towards the heart. ASSESS: Drug Rash Chronic Respiratory Failure UTI Septic Shock ESRD on HD Atrial Fibrillation Supratherapeutic INR Thrombocytopenia DM PLAN: - IV benadryl, medrol - d/w ID changing antibiotics due to rash (m/l 2/2 bactrim) - f/u cultures - titrate pressors to maintain MAP >65 - HD per renal - enteral feeds - Continue Vanco PO for hx of Cdiff - Continue antifungal coverage - DVT/GI prophylaxis - continue ICU monitoring [facility] ICU PULM/CCM [id number]
[2020-05-22] MEDS ORDERED: PT OWN MED DRAWER 7, Y5N ONE (22:04)
[2020-05-22] MEDS: CHLORHEXIDINE GLUCONATE 4% CLEANSER FOR DECOLONIZATION TP SCH (22:05)
[2020-05-22] MEDS ORDERED: METOPROLOL TARTRATE 5 MG/5 ML VIAL IVPUSH STA (22:30)
[2020-05-22] MEDS ORDERED: METOPROLOL TARTRATE 5 MG/5 ML VIAL IVPUSH PRN (22:30)
[2020-05-23] MEDS: methylPREDNISolone NA SUCC 40 MG/1 ML VIAL IVPUSH SCH ×3 (02:33→18:24)
[2020-05-23] MEDS: VANCOMYCIN 250 MG/5 ML ORAL SOLUTION PO SCH ×4 (05:50→18:25)
[2020-05-23 07:33] LABS: BLOOD UREA NITROGEN 36.8 mg/dL (7-18); CREATININE 2.8 mg/dL (0.55-1.3); PHOSPHOROUS 2.8 mg/dL (2.5-4.9); POTASSIUM 3.4 mmol/L (3.5-5.1)
[2020-05-23 08:03] LABS: CALCIUM 6.9 mg/dL (8.5-10.1)
[2020-05-23 08:15] LABS: ALBUMIN 1.8 g/dl (3.4-5.0)
[2020-05-23] MEDS: KCL 10 MEQ IVPB 10 MEQ/100 ML INFUS.BAG IVPB SCH ×4 (09:30→12:00)
[2020-05-23] MEDS: FLUCONAZOLE 100 MG/NS 50 ML IVPB SCH (10:00)
--- NOTE | 2020-05-23 10:33 | PN ---
Progress Note (short form) - Note Progress Note: RENAL Pt is arousable remains trach more alert today than before Last Vital Signs Temp Pulse Resp BP Pulse Ox 98.5 F 90 20 116/70 100 05/23/20 06:00 05/23/20 08:21 05/23/20 08:21 05/23/20 06:00 05/23/20 08:21 lungs clear cvs s1s2 rr abd soft ext +edema neuro arousable skin rash is resolving, now has desquamation CBC, BMP 05/22/20 05:30 05/23/20 05:00 Current Medications Generic Name Dose Route Start Last Admin Trade Name Freq PRN Reason Stop Dose Admin Chlorhexidine Gluconate 1 applic 05/18/20 22:00 05/22/20 22:05 Hibiclens For Decolonization - TP 1 applic HS [facility] Administration Diphenhydramine HCl 50 mg 05/20/20 12:00 05/23/20 02:33 Benadryl Injection - IVPB 50 mg Q6H-IV [facility] Administration Norepinephrine Bitartrate 8,000 mcg in 500 mls @ 18.75 mls/hr 05/18/20 19:15 05/22/20 22:00 Levophed Bag IVPB 2 mcg/min TITR [facility] 7.5 mls/hr Titration Protocol 5 MCG/MIN Fentanyl 500 mcg in 100 mls @ 5 mls/hr 05/20/20 14:00 05/22/20 10:21 Sublimaze Ivpb IVPB 25 mcg/hr TITR [facility] 5 mls/hr Administration Protocol 25 MCG/HR Fluconazole 50 mls @ 50 mls/hr 05/21/20 10:00 05/22/20 10:16 Diflucan 100 Mg/Ns Premixed Ivpb - IVPB 50 mls/hr DAILY [facility] Administration Sodium Chloride 250 mls @ 3,000 mls/hr 05/21/20 08:00 Normal Saline - IV 05/22/20 08:00 PRN PRN Hypotension during Dialysis Potassium Chloride 10 meq in 100 mls @ 100 mls/hr 05/23/20 08:15 Potassium Chloride 10 Meq Premix Ivpb - IVPB 05/23/20 11:14 Q60M [facility] Methylprednisolone Sodium Succinate 60 mg 05/20/20 11:45 05/23/20 02:33 Solu-Medrol - IVPUSH 60 mg Q8H-IV [facility] Administration Metoprolol Tartrate 5 mg 05/22/20 22:30 Lopressor Injection - IVPUSH Q4H PRN [facility] (HR >160) Multi-Ingredient Ointment 1 applic 05/19/20 21:45 05/22/20 10:23 Zinc Oxide TP 1 applic DAILY [facility] Administration Mupirocin 1 applic 05/18/20 22:00 05/22/20 22:05 Bactroban Ointment (For Decolonization) - NS 05/23/20 21:59 1 applic BID [facility] Administration Pantoprazole Sodium 40 mg 05/19/20 10:00 05/22/20 10:14 Protonix Iv IVPUSH 40 mg DAILY [facility] Administration Vancomycin HCl 125 mg 05/20/20 12:00 05/23/20 05:50 Vancomycin Oral Solution PO 125 mg Q6HPO [facility] Administration IMPRESSION esrd septic shock 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
[2020-05-23] MEDS: PANTOPRAZOLE SODIUM 40 MG VIAL IVPUSH SCH (11:07)
[2020-05-23] MEDS: FENTANYL IVPB 500 MCG/100 ML BAG IVPB SCH (11:10)
[2020-05-23] MEDS: MUPIROCIN 2% TOPICAL OINTMENT FOR DECOLONIZATION NS SCH (11:11)
[2020-05-23] MEDS: ZINC OXIDE 20% TOPICAL OINTMENT 30 GM TUBE TP SCH (11:11)
--- NOTE | 2020-05-23 11:22 | PN ---
Progress Note, Physician History of Present Illness: looks much stable rash improving still intubated on trach - Current Medication List Current Medications: Active Medications Chlorhexidine Gluconate (Hibiclens For Decolonization -) 1 applic TP HS [facility] Last Admin: 05/22/20 22:05 Dose: 1 applic Documented by: Diphenhydramine HCl (Benadryl Injection -) 50 mg IVPB Q6H-IV [facility] Last Admin: 05/23/20 09:00 Dose: 50 mg Documented by: Norepinephrine Bitartrate (Levophed Bag) 8,000 mcg in 500 mls @ 18.75 mls/hr IVPB TITR [facility]; Protocol Last Titration: 05/22/20 22:00 Dose: 2 mcg/min, 7.5 mls/hr Documented by: Fentanyl (Sublimaze Ivpb) 500 mcg in 100 mls @ 5 mls/hr IVPB TITR [facility]; Protocol Last Admin: 05/23/20 11:10 Dose: 25 mcg/hr, 5 mls/hr Documented by: Fluconazole (Diflucan 100 Mg/Ns Premixed Ivpb -) 50 mls @ 50 mls/hr IVPB DAILY [facility] Last Admin: 05/23/20 10:00 Dose: 50 mls/hr Documented by: Sodium Chloride (Normal Saline -) 250 mls @ 3,000 mls/hr IV PRN PRN PRN Reason: Hypotension during Dialysis Stop: 05/22/20 08:00 Methylprednisolone Sodium Succinate (Solu-Medrol -) 60 mg IVPUSH Q8H-IV [facility] Last Admin: 05/23/20 11:00 Dose: 60 mg Documented by: Metoprolol Tartrate (Lopressor Injection -) 5 mg IVPUSH Q4H PRN PRN Reason: TACHYCARDIA (HR >160) Last Admin: 05/23/20 10:00 Dose: 5 mg Documented by: Multi-Ingredient Ointment (Zinc Oxide) 1 applic TP DAILY [facility] Last Admin: 05/23/20 11:11 Dose: 1 applic Documented by: Mupirocin (Bactroban Ointment (For Decolonization) -) 1 applic NS BID [facility] Stop: 05/23/20 21:59 Last Admin: 05/23/20 11:11 Dose: 1 applic Documented by: Pantoprazole Sodium (Protonix Iv) 40 mg IVPUSH DAILY [facility] Last Admin: 05/23/20 11:07 Dose: 40 mg Documented by: Vancomycin HCl (Vancomycin Oral Solution) 125 mg PO Q6HPO [facility] Last Admin: 05/23/20 05:50 Dose: 125 mg Documented by: - Objective Vital Signs: Vital Signs Temperature 98.5 F 05/23/20 06:00 Pulse Rate 155 H 05/23/20 10:00 Respiratory Rate 20 05/23/20 08:21 Blood Pressure 113/83 05/23/20 10:00 O2 Sat by Pulse Oximetry (%) 100 05/23/20 08:21 Constitutional: Yes: No Distress, Calm Cardiovascular: Yes: S1, S2 Respiratory: Yes: Mechanically Ventilated, Other (trach) Gastrointestinal: Yes: Normal Bowel Sounds, Soft Musculoskeletal: Yes: WNL Extremities: Yes: Other Integumentary: Yes: Rash Neurological: Yes: Other (open eyes) Labs: CBC, BMP 05/22/20 05:30 05/23/20 05:00 INR, PTT INR 1.76 (0.83-1.09) H 05/21/20 06:00 Assessment/Plan this patient with multiple medical issues now in septic shock all cx reports noted Chronic Respiratory Failure UTI Septic Shock ESRD on HD Atrial Fibrillation Supratherapeutic INR DM Drug Rash plan diflucan as per icu mgmt rest as per the team monitor rash continue pressors as needed cc 40 min
--- NOTE | 2020-05-23 11:47 | PN ---
Progress Note, Physician History of Present Illness: more awake rash improving continues to be on vent - Current Medication List Current Medications: Active Medications Chlorhexidine Gluconate (Hibiclens For Decolonization -) 1 applic TP HS [facility] Last Admin: 05/22/20 22:05 Dose: 1 applic Documented by: Diphenhydramine HCl (Benadryl Injection -) 50 mg IVPB Q6H-IV [facility] Last Admin: 05/23/20 09:00 Dose: 50 mg Documented by: Norepinephrine Bitartrate (Levophed Bag) 8,000 mcg in 500 mls @ 18.75 mls/hr IVPB TITR [facility]; Protocol Last Titration: 05/22/20 22:00 Dose: 2 mcg/min, 7.5 mls/hr Documented by: Fentanyl (Sublimaze Ivpb) 500 mcg in 100 mls @ 5 mls/hr IVPB TITR [facility]; Protocol Last Admin: 05/23/20 11:10 Dose: 25 mcg/hr, 5 mls/hr Documented by: Fluconazole (Diflucan 100 Mg/Ns Premixed Ivpb -) 50 mls @ 50 mls/hr IVPB DAILY [facility] Last Admin: 05/23/20 10:00 Dose: 50 mls/hr Documented by: Sodium Chloride (Normal Saline -) 250 mls @ 3,000 mls/hr IV PRN PRN PRN Reason: Hypotension during Dialysis Stop: 05/22/20 08:00 Methylprednisolone Sodium Succinate (Solu-Medrol -) 60 mg IVPUSH Q8H-IV [facility] Last Admin: 05/23/20 11:00 Dose: 60 mg Documented by: Metoprolol Tartrate (Lopressor Injection -) 5 mg IVPUSH Q4H PRN PRN Reason: TACHYCARDIA (HR >160) Last Admin: 05/23/20 10:00 Dose: 5 mg Documented by: Multi-Ingredient Ointment (Zinc Oxide) 1 applic TP DAILY [facility] Last Admin: 05/23/20 11:11 Dose: 1 applic Documented by: Mupirocin (Bactroban Ointment (For Decolonization) -) 1 applic NS BID [facility] Stop: 05/23/20 21:59 Last Admin: 05/23/20 11:11 Dose: 1 applic Documented by: Pantoprazole Sodium (Protonix Iv) 40 mg IVPUSH DAILY [facility] Last Admin: 05/23/20 11:07 Dose: 40 mg Documented by: Vancomycin HCl (Vancomycin Oral Solution) 125 mg PO Q6HPO [facility] Last Admin: 05/23/20 05:50 Dose: 125 mg Documented by: - Objective Vital Signs: Vital Signs Temperature 98.5 F 05/23/20 06:00 Pulse Rate 155 H 05/23/20 10:00 Respiratory Rate 20 05/23/20 11:33 Blood Pressure 113/83 05/23/20 10:00 O2 Sat by Pulse Oximetry (%) 100 05/23/20 11:33 Constitutional: Yes: Other Cardiovascular: Yes: S1, S2 Respiratory: Yes: Mechanically Ventilated, Other (trach in place) Gastrointestinal: Yes: Normal Bowel Sounds, Soft Musculoskeletal: Yes: WNL Integumentary: Yes: Rash Neurological: Yes: Other Labs: CBC, BMP 05/22/20 05:30 05/23/20 05:00 INR, PTT INR 1.76 (0.83-1.09) H 05/21/20 06:00 - ....Imaging Chest X-ray: Report Reviewed, Image Reviewed Assessment/Plan this patient with multiple medical issues now in septic shock all cx reports noted Chronic Respiratory Failure UTI Septic Shock ESRD on HD Atrial Fibrillation Supratherapeutic INR DM Drug Rash plan diflucan as per icu mgmt rest as per the team monitor rash urine cx results noted cc 40 min
--- NOTE | 2020-05-23 11:48 | PN ---
Progress Note, Physician History of Present Illness: more awake rash improving continues to be on vent - Current Medication List Current Medications: Active Medications Chlorhexidine Gluconate (Hibiclens For Decolonization -) 1 applic TP HS [facility] Last Admin: 05/22/20 22:05 Dose: 1 applic Documented by: Diphenhydramine HCl (Benadryl Injection -) 50 mg IVPB Q6H-IV [facility] Last Admin: 05/23/20 09:00 Dose: 50 mg Documented by: Norepinephrine Bitartrate (Levophed Bag) 8,000 mcg in 500 mls @ 18.75 mls/hr IVPB TITR TAMIA; Protocol Last Titration: 05/22/20 22:00 Dose: 2 mcg/min, 7.5 mls/hr Documented by: Fentanyl (Sublimaze Ivpb) 500 mcg in 100 mls @ 5 mls/hr IVPB TITR TAMIA; Protocol Last Admin: 05/23/20 11:10 Dose: 25 mcg/hr, 5 mls/hr Documented by: Fluconazole (Diflucan 100 Mg/Ns Premixed Ivpb -) 50 mls @ 50 mls/hr IVPB DAILY [facility] Last Admin: 05/23/20 10:00 Dose: 50 mls/hr Documented by: Sodium Chloride (Normal Saline -) 250 mls @ 3,000 mls/hr IV PRN PRN PRN Reason: Hypotension during Dialysis Stop: 05/22/20 08:00 Methylprednisolone Sodium Succinate (Solu-Medrol -) 60 mg IVPUSH Q8H-IV [facility] Last Admin: 05/23/20 11:00 Dose: 60 mg Documented by: Metoprolol Tartrate (Lopressor Injection -) 5 mg IVPUSH Q4H PRN PRN Reason: TACHYCARDIA (HR >160) Last Admin: 05/23/20 10:00 Dose: 5 mg Documented by: Multi-Ingredient Ointment (Zinc Oxide) 1 applic TP DAILY [facility] Last Admin: 05/23/20 11:11 Dose: 1 applic Documented by: Mupirocin (Bactroban Ointment (For Decolonization) -) 1 applic NS BID [facility] Stop: 05/23/20 21:59 Last Admin: 05/23/20 11:11 Dose: 1 applic Documented by: Pantoprazole Sodium (Protonix Iv) 40 mg IVPUSH DAILY [facility] Last Admin: 05/23/20 11:07 Dose: 40 mg Documented by: Vancomycin HCl (Vancomycin Oral Solution) 125 mg PO Q6HPO [facility] Last Admin: 05/23/20 05:50 Dose: 125 mg Documented by: - Objective Vital Signs: Vital Signs Temperature 98.5 F 05/23/20 06:00 Pulse Rate 155 H 05/23/20 10:00 Respiratory Rate 20 05/23/20 11:33 Blood Pressure 113/83 05/23/20 10:00 O2 Sat by Pulse Oximetry (%) 100 05/23/20 11:33 Constitutional: Yes: Other Cardiovascular: Yes: S1, S2 Respiratory: Yes: Mechanically Ventilated, Other (trach) Gastrointestinal: Yes: Normal Bowel Sounds, Soft Musculoskeletal: Yes: WNL Extremities: Yes: Other Edema: LLE: 1+, RLE: 1+ Integumentary: Yes: Rash Neurological: Yes: Alert, Other Labs: CBC, BMP 05/22/20 05:30 05/23/20 05:00 INR, PTT INR 1.76 (0.83-1.09) H 05/21/20 06:00 - ....Imaging Chest X-ray: Report Reviewed, Image Reviewed Assessment/Plan this patient with multiple medical issues now in septic shock all cx reports noted Chronic Respiratory Failure UTI Septic Shock ESRD on HD Atrial Fibrillation Supratherapeutic INR DM Drug Rash plan diflucan as per icu mgmt rest as per the team monitor rash urine cx results noted cc 40 min
[2020-05-23 12:26] LABS: BILIRUBIN,DIRECT 0.1 mg/dL (0.0-0.2); BILIRUBIN,TOTAL 0.2 mg/dL (0.2-1); TOT PROT 4.6 g/dl (6.4-8.2)
--- NOTE | 2020-05-23 12:49 | PN ---
Teaching Attending Note Name of Resident: Meliton Warner ATTENDING PHYSICIAN STATEMENT I saw and evaluated the patient. I reviewed the resident's note and discussed the case with the resident. I agree with the resident's findings and plan as documented. SUBJECTIVE: Patient seen and examined in the ICU. Remain vented via Trachesotomy. Low dose NE for hemodynamic support. Drug rash improving. Intake & Output 05/20/20 05/21/20 05/22/20 05/23/20 23:59 23:59 23:59 23:59 Intake Total 2977 3100 2828 884 Output Total 25 10070 100 30 Balance 6766 -8557 9928 854 Weight 185 lb 192 lb 5 oz 187 lb Last Vital Signs Temp Pulse Resp BP Pulse Ox 98.5 F 155 H 20 113/83 100 05/23/20 06:00 05/23/20 10:00 05/23/20 11:33 05/23/20 10:00 05/23/20 11:33 Active Medications Chlorhexidine Gluconate (Hibiclens For Decolonization -) 1 applic TP HS [facility] Last Admin: 05/22/20 22:05 Dose: 1 applic Documented by: Diphenhydramine HCl (Benadryl Injection -) 50 mg IVPB Q6H-IV [facility] Last Admin: 05/23/20 09:00 Dose: 50 mg Documented by: Norepinephrine Bitartrate (Levophed Bag) 8,000 mcg in 500 mls @ 18.75 mls/hr IVPB TITR TAMIA; Protocol Last Titration: 05/22/20 22:00 Dose: 2 mcg/min, 7.5 mls/hr Documented by: Fentanyl (Sublimaze Ivpb) 500 mcg in 100 mls @ 5 mls/hr IVPB TITR TAMIA; Protocol Last Admin: 05/23/20 11:10 Dose: 25 mcg/hr, 5 mls/hr Documented by: Fluconazole (Diflucan 100 Mg/Ns Premixed Ivpb -) 50 mls @ 50 mls/hr IVPB DAILY [facility] Last Admin: 05/23/20 10:00 Dose: 50 mls/hr Documented by: Sodium Chloride (Normal Saline -) 250 mls @ 3,000 mls/hr IV PRN PRN PRN Reason: Hypotension during Dialysis Stop: 05/22/20 08:00 Methylprednisolone Sodium Succinate (Solu-Medrol -) 60 mg IVPUSH Q8H-IV [facility] Last Admin: 05/23/20 11:00 Dose: 60 mg Documented by: Metoprolol Tartrate (Lopressor Injection -) 5 mg IVPUSH Q4H PRN PRN Reason: TACHYCARDIA (HR >160) Last Admin: 05/23/20 10:00 Dose: 5 mg Documented by: Multi-Ingredient Ointment (Zinc Oxide) 1 applic TP DAILY [facility] Last Admin: 05/23/20 11:11 Dose: 1 applic Documented by: Mupirocin (Bactroban Ointment (For Decolonization) -) 1 applic NS BID [facility] Stop: 05/23/20 21:59 Last Admin: 05/23/20 11:11 Dose: 1 applic Documented by: Pantoprazole Sodium (Protonix Iv) 40 mg IVPUSH DAILY [facility] Last Admin: 05/23/20 11:07 Dose: 40 mg Documented by: Vancomycin HCl (Vancomycin Oral Solution) 125 mg PO Q6HPO [facility] Last Admin: 05/23/20 05:50 Dose: 125 mg Documented by: GEN: Lethargic but arousable, vented Lung: decreased breath sounds at the bases Heart: nml S1, S2, RR, unable to apprecite any G/M/R Abd: + BS, S/S N/T N/D X4Q Ext: + Pulses, WWPX4, (-) edema Laboratory Results - last 24 hr 05/18/20 05/23/20 12:30 05:00 Sodium 141 Potassium 3.4 L Chloride 107 Carbon Dioxide 28 Anion Gap 6 L BUN 36.8 H Creatinine 2.8 H Est GFR (CKD-EPI)AfAm 16.89 Est GFR (CKD-EPI)NonAf 14.58 Random Glucose 283 H Calcium 6.9 L* Phosphorus 2.8 Magnesium 2.0 Total Bilirubin 0.2 Direct Bilirubin 0.1 AST 9 L ALT 13 Alkaline Phosphatase 78 Total Protein 4.6 L Albumin 1.8 L Blood Type O POSITIVE Antibody Screen Negative Crossmatch See Detail ASSESS: Septic Shock Suspected Drug Rash Chronic Respiratory Failure UTI ESRD on HD Atrial Fibrillation Supratherapeutic INR Thrombocytopenia DM PLAN: - IV benadryl, medrol - ABX per ID - Follow final cultures - titrate pressors to maintain MAP >65 - HD per renal - enteral feeds - DVT/GI prophylaxis - Requires continued ICU monitoring Dr Escamilla Critical care time spent in reviewing chart, evaluating patient and formulating plan - 36 minutes.
--- NOTE | 2020-05-23 18:40 | PN ---
Physical Exam: SUBJECTIVE: Patient seen and examined trached and nonverbal at baseline. OBJECTIVE: Vital Signs Period Temp Pulse Resp BP Sys/Hernandez Pulse Ox Last 24 Hr 98.5 F-98.6 F 90-189 16-25 108-116/55-83 97-100 GENERAL: The patient is awake, alert. Non-verbal. Responds to command HEAD: NC, ulcers on L neck. Wounds on L chin and behind L ear. PERRL. No ptosis. MMM m LUNGS: ventilated breath sounds. HEART: Regular rate and rhythm, S1, S2 without murmur, rub or gallop. ABDOMEN: obese, Soft, nontender, nondistended, LUQ peg tube EXTREMITIES: 2+ pulses, warm, well-perfused, 3+ pitting edema b/l LE. 2+ pitting edema b/l UE. legs erythematous, scaling SKIN: Warm, dry, diffuse erythema improved now only on stomach and chest. Laboratory Results - last 24 hr 05/23/20 05:00 Sodium 141 Potassium 3.4 L Chloride 107 Carbon Dioxide 28 Anion Gap 6 L BUN 36.8 H Creatinine 2.8 H Est GFR (CKD-EPI)AfAm 16.89 Est GFR (CKD-EPI)NonAf 14.58 Random Glucose 283 H Calcium 6.9 L* Phosphorus 2.8 Magnesium 2.0 Total Bilirubin 0.2 Direct Bilirubin 0.1 AST 9 L ALT 13 Alkaline Phosphatase 78 Total Protein 4.6 L Albumin 1.8 L Active Medications Generic Name Dose Route Start Last Admin Trade Name Freq PRN Reason Stop Dose Admin Chlorhexidine Gluconate 1 applic 05/18/20 22:00 05/22/20 22:05 Hibiclens For Decolonization - TP 1 applic HS [facility] Administration Diphenhydramine HCl 50 mg 05/20/20 12:00 05/23/20 15:30 Benadryl Injection - IVPB 50 mg Q6H-IV TAMIA Administration Norepinephrine Bitartrate 8,000 mcg in 500 mls @ 18.75 mls/hr 05/18/20 19:15 05/23/20 08:30 Levophed Bag IVPB 0 mcg/min TITR TAMIA 0 mls/hr Titration Protocol 5 MCG/MIN Fentanyl 500 mcg in 100 mls @ 5 mls/hr 05/20/20 14:00 05/23/20 11:10 Sublimaze Ivpb IVPB 25 mcg/hr TITR TAMIA 5 mls/hr Administration Protocol 25 MCG/HR Fluconazole 50 mls @ 50 mls/hr 05/21/20 10:00 05/23/20 10:00 Diflucan 100 Mg/Ns Premixed Ivpb - IVPB 50 mls/hr DAILY [facility]IA Administration Sodium Chloride 250 mls @ 3,000 mls/hr 05/21/20 08:00 Normal Saline - IV 05/22/20 08:00 PRN PRN Hypotension during Dialysis Methylprednisolone Sodium Succinate 60 mg 05/20/20 11:45 05/23/20 18:24 Solu-Medrol - IVPUSH 60 mg Q8H-IV T[facility]IA Administration Metoprolol Tartrate 5 mg 05/22/20 22:30 05/23/20 10:00 Lopressor Injection - IVPUSH 5 mg Q4H PRN Administration TACHYCARDIA (HR >160) Multi-Ingredient Ointment 1 applic 05/19/20 21:45 05/23/20 11:11 Zinc Oxide TP 1 applic DAILY [facility] Administration Mupirocin 1 applic 05/18/20 22:00 05/23/20 11:11 Bactroban Ointment (For Decolonization) - NS 05/23/20 21:59 1 applic BID [facility]IA Administration Pantoprazole Sodium 40 mg 05/19/20 10:00 05/23/20 11:07 Protonix Iv IVPUSH 40 mg DAILY [facility] Administration Vancomycin HCl 125 mg 05/20/20 12:00 05/23/20 18:25 Vancomycin Oral Solution PO 125 mg Q6HPO [facility]IA Administration ASSESSMENT/PLAN: 89 YO F PMH dementia, GERD, ESRD on HD, afib, candidasis (skin/nails), DM type 2, congenital rectovaginal fistula, unspecified dysphagia, insomnia, tracheostomy and PEG tube was referred from [facility] for severe hypotension and AMS. Admitted to ICU for Septic shock 2/2 likely UTI. Neuro: -Alert and awake, but non-non verbal -fentantyl drip for pain Pulm: #Chronic respiratory failure -patient has trach - CXR: New infiltrate at left base - Pt saturating well vent settings at 15/400/40%/5 Cardio: #afib - trop neg -levophed 2 mcg/min for hypotension. BP stable. Will start titrating down. - pt went into nonsustained VT will monitor. Pt will be weaned of levo - Lopressor 5mg PRN ID: -sepsis secondary to UTI. PT new UA shows no infection. Ucx shows group D strep - C dif ag+ and toxin - will continue giving PO vancomycin due to diarrhea -Diflucan 100 mg IV daily started for fungal infection. Rash improving Heme: - INR 8: supratherapeutic on admission, s/p FFP. Pt INR today 1.76 will consider restarting warfarin -takes warfarin at home. will continue holding home warfarin and other AC -f/u PT/INR, PTT Renal: - cortes - ESRD on HD -BUN/Cr increased to 36.8/2.8 -neprhology consult appreciated. plan on dialysis tomorrow -I/O 884/30 GI - h/o cdiff -continue with vancomycin 125 PO Q6H - protonix 40 IV daily for GI ppx Derm: - diffuse erythema and scaling. -h/o gregorio infection on skin -discussed with ID. either a reaction to medication or fungal infection. > Diflucan 100 mg IV daily started for fungal infection. Uptodate recommending reducing diflucan dose for those with renal impairment. > solumedrol 60 Q8H -spoke to daughter and [facility] who both denied any allergies to medications or past reactions to medications. Faxing release of information sheet to [facility] for patient's past medical records to investigate allergies to medications or past reactions to medications. - according to PM team allergic reaction is most likely due to bactim (sulfa allergy?) FEN NS@50 ml /hr montior lytes- K low today was repleted. tube feed nepro DVT PPX - holding AC 2/2 supratherapeutic INR on admission -scds Lines Left subclavian triple lumen (05/20). CAN USE Left subclavian triple lumen. LUQ peg tube (arrived with it) R permacath cortes Dispo: maintain ICU Visit type - Emergency Visit Emergency Visit: Yes ED Registration Date: 05/18/20 Care time: The patient presented to the Emergency Department on the above date and was hospitalized for further evaluation of their emergent condition. - New Patient This patient is new to me today: No - Critical Care Critical Care patient: Yes Total Critical Care Time (in minutes): 36 Critical Care Statement: The care of this patient involved high complexity decision making to prevent further life threatening deterioration of the patient's condition and/or to evaluate & treat vital organ system(s) failure or risk of failure. - Medication Review Med list reviewed for High Risk Meds patients 65 and older: Yes ATTENDING PHYSICIAN STATEMENT I saw and evaluated the patient. I reviewed the resident's note and discussed the case with the resident. I agree with the resident's findings and plan as documented. SUBJECTIVE: OBJECTIVE: ASSESSMENT AND PLAN:
[2020-05-23] MEDS: CHLORHEXIDINE GLUCONATE 4% CLEANSER FOR DECOLONIZATION TP SCH (22:06)
[2020-05-24] MEDS: VANCOMYCIN 250 MG/5 ML ORAL SOLUTION PO SCH ×4 (00:25→17:03)
[2020-05-24] MEDS: methylPREDNISolone NA SUCC 40 MG/1 ML VIAL IVPUSH SCH ×3 (02:00→17:03)
[2020-05-24 08:04] LABS: INR 2.25 (0.83-1.09); PROTHROMBIN TIME (PATIENT) 26.8 SEC (9.7-13.0)
[2020-05-24 08:05] LABS: BASO % 0.2 % (0-2.0); HEMATOCRIT 27.2 % (32.4-45.2); HEMOGLOBIN 8.7 GM/dL (10.7-15.3); LYMPH % 5.8 % (8-40); MCH 30.4 pg (25.7-33.7); MCHC 31.9 g/dl (32.0-36.0); MEAN CELL VOLUME 95.4 fl (80-96); MEAN PLT VOLUME 8.5 fl (7.5-11.1); MONO % 2.6 % (3.8-10.2); NEUT % 91.4 % (42.8-82.8); PLATELET COUNT 106 K/MM3 (134-434); RBC 2.85 M/mm3 (3.60-5.2); RDW 22.3 % (11.6-15.6); WHITE BLOOD COUNT 9.8 K/mm3 (4.0-10.0)
[2020-05-24 08:06] LABS: ACTIVATED PTT 33.2 SECONDS (25.2-36.5)
[2020-05-24 08:08] LABS: ALBUMIN 1.7 g/dl (3.4-5.0); BILIRUBIN,TOTAL 0.6 mg/dL (0.2-1); BLOOD UREA NITROGEN 51.1 mg/dL (7-18); CREATININE 3.3 mg/dL (0.55-1.3); MAGNESIUM 2.3 mg/dL (1.8-2.4); POTASSIUM 3.4 mmol/L (3.5-5.1); TOT PROT 4.2 g/dl (6.4-8.2)
[2020-05-24 08:16] LABS: CALCIUM 6.7 mg/dL (8.5-10.1)
[2020-05-24] MEDS ORDERED: PT OWN MED DRAWER 7, Y5N ONE (09:58)
[2020-05-24] MEDS: KCL 10 MEQ IVPB 10 MEQ/100 ML INFUS.BAG IVPB SCH ×3 (10:02→12:41)
[2020-05-24] MEDS: PANTOPRAZOLE SODIUM 40 MG VIAL IVPUSH SCH (10:02)
[2020-05-24] MEDS: ZINC OXIDE 20% TOPICAL OINTMENT 30 GM TUBE TP SCH (10:03)
[2020-05-24] MEDS: FLUCONAZOLE 100 MG/NS 50 ML IVPB SCH (10:03)
[2020-05-24 13:01] LABS: ANISOCYTOSIS 2+; MACROCYTOSIS 2+; PLATELET ESTIMATE DECREASED
--- NOTE | 2020-05-24 13:37 | PN ---
Progress Note (short form) - Note Progress Note: 89 YO F PMH dementia, GERD, ESRD on HD, afib, candidasis (skin/nails), DM type 2, congenital rectovaginal fistula, unspecified dysphagia, insomnia, tracheostomy and PEG tube was referred from [facility] dialysis for severe hypotension and AMS. Admitted to ICU for Septic shock 2/2 likely UTI, possible drug reaction from bactrim, or fungal skin infection. In the ICU pt was put on pressors and abx for sepsis and benadryl and steroids for possible allergic reaction. Pt now MAP of 74 on no pressors. Pt rash also has improved. Pt now stable to be transferred to . Pt still has left subclavian central line placed in 05/20/2020. Will leave in if no peripheral access obtained. Physical exam: GENERAL: The patient is awake, alert. Non-verbal. Responds to command HEAD: NC, ulcers on L neck. Wounds on L chin and behind L ear. PERRL. No ptosis. MMM m LUNGS: ventilated breath sounds. HEART: Regular rate and rhythm, S1, S2 without murmur, rub or gallop. ABDOMEN: obese, Soft, nontender, nondistended, LUQ peg tube EXTREMITIES: 2+ pulses, warm, well-perfused, 3+ pitting edema b/l LE. 2+ pitting edema b/l UE. legs erythematous, scaling SKIN: Warm, dry, diffuse erythema improved now only on stomach and chest.
--- NOTE | 2020-05-24 13:57 | PN ---
Progress Note, Physician - Current Medication List Current Medications: Active Medications Chlorhexidine Gluconate (Hibiclens For Decolonization -) 1 applic TP HS [facility] Last Admin: 05/23/20 22:06 Dose: 1 applic Documented by: Diphenhydramine HCl (Benadryl Injection -) 50 mg IVPB Q6H-IV [facility] Last Admin: 05/24/20 10:02 Dose: 50 mg Documented by: Norepinephrine Bitartrate (Levophed Bag) 8,000 mcg in 500 mls @ 18.75 mls/hr IVPB TITR TAMIA; Protocol Last Titration: 05/23/20 08:30 Dose: 0 mcg/min, 0 mls/hr Documented by: Fentanyl (Sublimaze Ivpb) 500 mcg in 100 mls @ 5 mls/hr IVPB TITR TAMIA; Protocol Last Admin: 05/23/20 11:10 Dose: 25 mcg/hr, 5 mls/hr Documented by: Fluconazole (Diflucan 100 Mg/Ns Premixed Ivpb -) 50 mls @ 50 mls/hr IVPB DAILY [facility] Last Admin: 05/24/20 10:03 Dose: 50 mls/hr Documented by: Sodium Chloride (Normal Saline -) 250 mls @ 3,000 mls/hr IV PRN PRN PRN Reason: Hypotension during Dialysis Stop: 05/22/20 08:00 Methylprednisolone Sodium Succinate (Solu-Medrol -) 60 mg IVPUSH Q8H-IV [facility] Last Admin: 05/24/20 10:02 Dose: 60 mg Documented by: Metoprolol Tartrate (Lopressor Injection -) 5 mg IVPUSH Q4H PRN PRN Reason: TACHYCARDIA (HR >160) Last Admin: 05/23/20 10:00 Dose: 5 mg Documented by: Multi-Ingredient Ointment (Zinc Oxide) 1 applic TP DAILY [facility] Last Admin: 05/24/20 10:03 Dose: 1 applic Documented by: Pantoprazole Sodium (Protonix Iv) 40 mg IVPUSH DAILY [facility] Last Admin: 05/24/20 10:02 Dose: 40 mg Documented by: Vancomycin HCl (Vancomycin Oral Solution) 125 mg PO Q6HPO [facility] Last Admin: 05/24/20 13:12 Dose: 125 mg Documented by: - Objective Vital Signs: Vital Signs Temperature 98.5 F 05/24/20 10:00 Pulse Rate 92 H 05/24/20 12:00 Respiratory Rate 16 05/24/20 12:00 Blood Pressure 115/65 05/24/20 12:00 O2 Sat by Pulse Oximetry (%) 96 05/24/20 12:00 Labs: CBC, BMP 05/24/20 05:00 05/24/20 05:00 INR, PTT INR 2.25 (0.83-1.09) H 05/24/20 05:00
[2020-05-24 14:03] VITALS: BMI 31.9
--- NOTE | 2020-05-24 14:45 | PN ---
Progress Note (short form) - Note Progress Note: RENAL Pt is awake remains trach daughter is present Last Vital Signs Temp Pulse Resp BP Pulse Ox 98.4 F 93 H 15 108/65 97 05/24/20 14:00 05/24/20 14:00 05/24/20 14:00 05/24/20 14:00 05/24/20 14:00 trach lungs clear cvs s1s2 rr abd soft ext +edema neuro awake skin rash is resolving, now has desquamation CBC, BMP 05/24/20 05:00 05/24/20 05:00 Current Medications Generic Name Dose Route Start Last Admin Trade Name Freq PRN Reason Stop Dose Admin Chlorhexidine Gluconate 1 applic 05/18/20 22:00 05/23/20 22:06 Hibiclens For Decolonization - TP 1 applic HS TAMIA Administration Diphenhydramine HCl 50 mg 05/20/20 12:00 05/24/20 10:02 Benadryl Injection - IVPB 50 mg Q6H-IV TAMIA Administration Norepinephrine Bitartrate 8,000 mcg in 500 mls @ 18.75 mls/hr 05/18/20 19:15 05/23/20 08:30 Levophed Bag IVPB 0 mcg/min TITR TAMIA 0 mls/hr Titration Protocol 5 MCG/MIN Fentanyl 500 mcg in 100 mls @ 5 mls/hr 05/20/20 14:00 05/23/20 11:10 Sublimaze Ivpb IVPB 25 mcg/hr TITR TAMIA 5 mls/hr Administration Protocol 25 MCG/HR Fluconazole 50 mls @ 50 mls/hr 05/21/20 10:00 05/24/20 10:03 Diflucan 100 Mg/Ns Premixed Ivpb - IVPB 50 mls/hr DAILY [facility]IA Administration Sodium Chloride 250 mls @ 3,000 mls/hr 05/21/20 08:00 Normal Saline - IV 05/22/20 08:00 PRN PRN Hypotension during Dialysis Methylprednisolone Sodium Succinate 60 mg 05/20/20 11:45 05/24/20 10:02 Solu-Medrol - IVPUSH 60 mg Q8H-IV TAMIA Administration Metoprolol Tartrate 5 mg 05/22/20 22:30 05/23/20 10:00 Lopressor Injection - IVPUSH 5 mg Q4H PRN Administration TACHYCARDIA (HR >160) Multi-Ingredient Ointment 1 applic 05/19/20 21:45 05/24/20 10:03 Zinc Oxide TP 1 applic DAILY [facility] Administration Pantoprazole Sodium 40 mg 05/19/20 10:00 05/24/20 10:02 Protonix Iv IVPUSH 40 mg DAILY [facility]IA Administration Vancomycin HCl 125 mg 05/20/20 12:00 05/24/20 13:12 Vancomycin Oral Solution PO 125 mg Q6HPO TAMIA Administration IMPRESSION esrd septic shock likely drug rash vent dependence s/p recent catheter dislodgement eosinophilia consistent with drug rash-reportedly due to bactrim PLAN HD today, if possible would start reducing her steroids since she appears better abx per ID MV
--- NOTE | 2020-05-24 15:34 | PN ---
Physical Exam: SUBJECTIVE: Patient seen and examined at bedside, admitted for septic shock 2/2 UTI, now MAP stable for downgrade. H/o multiple comorbidities. OBJECTIVE: PE GENERAL: Awake, non-verbal, NAD HEENT: NC/AT, visible plaque/ulcers on L neck. Wounds on L chin and behind L ear. EOMI. LUNGS: Coarse b/l BS, poor inspiratory effort HEART: S1, S2+, regular rate ABDOMEN: obese, Soft, nontender, nondistended, PEG tube without discharge. EXTREMITIES: 2+ pulses, warm, well-perfused, 3+ pitting edema b/l LE. 2+ pitting edema b/l UE. legs erythematous, scaling SKIN: Warm, dry, diffuse erythema improved now only on stomach and chest. Vital Signs Period Temp Pulse Resp BP Sys/Hernandez Pulse Ox Last 24 Hr 97.8 F-98.5 F 83-97 13-25 92-137/55-87 91-99 Laboratory Results - last 24 hr 05/24/20 05/24/20 05/24/20 05:00 05:00 05:00 WBC 9.8 RBC 2.85 L Hgb 8.7 L Hct 27.2 L MCV 95.4 MCH 30.4 MCHC 31.9 L RDW 22.3 H Plt Count 106 L D MPV 8.5 Absolute Neuts (auto) 9.0 H Neutrophils % 91.4 H Neutrophils % (Manual) 91.0 H Band Neutrophils % 0.0 Lymphocytes % 5.8 L D Lymphocytes % (Manual) 8.0 D Monocytes % 2.6 L Monocytes % (Manual) 1 L D Eosinophils % 0.0 Eosinophils % (Manual) 0.0 D Basophils % 0.2 Basophils % (Manual) 0.0 Myelocytes % (Man) 0 D Promyelocytes % (Man) 0 Blast Cells % (Manual) 0 Nucleated RBC % 0 Metamyelocytes 0 D Hypochromia 0 Platelet Estimate Decreased Polychromasia 1+ Poikilocytosis 0 Anisocytosis 2+ Microcytosis 0 Macrocytosis 2+ PT with INR 26.80 H INR 2.25 H PTT (Actin FS) 33.2 Sodium 141 Potassium 3.4 L Chloride 106 Carbon Dioxide 26 Anion Gap 9 BUN 51.1 H Creatinine 3.3 H Est GFR (CKD-EPI)AfAm 13.85 Est GFR (CKD-EPI)NonAf 11.95 Random Glucose 269 H Calcium 6.7 L* Phosphorus 3.0 Magnesium 2.3 Total Bilirubin 0.6 AST 7 L ALT 12 L Alkaline Phosphatase 101 Total Protein 4.2 L Albumin 1.7 L Active Medications Generic Name Dose Route Start Last Admin Trade Name Freq PRN Reason Stop Dose Admin Chlorhexidine Gluconate 1 applic 05/18/20 22:00 05/23/20 22:06 Hibiclens For Decolonization - TP 1 applic HS TAMIA Administration Diphenhydramine HCl 50 mg 05/20/20 12:00 05/24/20 10:02 Benadryl Injection - IVPB 50 mg Q6H-IV TAMIA Administration Epoetin Kam-epbx 3,000 unit 05/24/20 14:45 Retacrit SQ 05/24/20 14:46 ONCE ONE Norepinephrine Bitartrate 8,000 mcg in 500 mls @ 18.75 mls/hr 05/18/20 19:15 05/23/20 08:30 Levophed Bag IVPB 0 mcg/min TITR TAMIA 0 mls/hr Titration Protocol 5 MCG/MIN Fentanyl 500 mcg in 100 mls @ 5 mls/hr 05/20/20 14:00 05/23/20 11:10 Sublimaze Ivpb IVPB 25 mcg/hr TITR TAMIA 5 mls/hr Administration Protocol 25 MCG/HR Fluconazole 50 mls @ 50 mls/hr 05/21/20 10:00 05/24/20 10:03 Diflucan 100 Mg/Ns Premixed Ivpb - IVPB 50 mls/hr DAILY TAMIA Administration Sodium Chloride 250 mls @ 3,000 mls/hr 05/21/20 08:00 Normal Saline - IV 05/22/20 08:00 PRN PRN Hypotension during Dialysis Sodium Chloride 250 mls @ 3,000 mls/hr 05/24/20 14:45 Normal Saline - IV 05/25/20 14:45 PRN PRN Hypotension during Dialysis Methylprednisolone Sodium Succinate 60 mg 05/20/20 11:45 05/24/20 10:02 Solu-Medrol - IVPUSH 60 mg Q8H-IV TAMIA Administration Metoprolol Tartrate 5 mg 05/22/20 22:30 05/23/20 10:00 Lopressor Injection - IVPUSH 5 mg Q4H PRN Administration TACHYCARDIA (HR >160) Multi-Ingredient Ointment 1 applic 05/19/20 21:45 05/24/20 10:03 Zinc Oxide TP 1 applic DAILY [facility]AMIA Administration Pantoprazole Sodium 40 mg 05/19/20 10:00 05/24/20 10:02 Protonix Iv IVPUSH 40 mg DAILY TAMIA Administration Vancomycin HCl 125 mg 05/20/20 12:00 05/24/20 13:12 Vancomycin Oral Solution PO 125 mg Q6HPO TAMIA Administration ASSESSMENT/PLAN: 89 F Desquaminated skin rash 2/2 ?cephalosporin use Sepsis Chronic respiratory failure s/p trach UTI Afib not on AC ESRD on HD Thrombocytopenia HTN HLD Dementia PEG Suspected fungemia Plan: Cont. Vancomycin/Fluconazole follow cultures Strict avoidance of PCN/cephalosporins/Bactrim Monitor Plt count, repeat plt in blue citrate tube for best results Cont. IV steroids and benadryl for skin reaction (now improving) Monitor electrolytes, HD schedule per Renal gentle IV hydration to maintain MAP >65 Palliative consult for goals of care d/t multiple comorbid conditions ID following DVT ppx: SCD Visit type - Emergency Visit Emergency Visit: No - New Patient This patient is new to me today: Yes Date on this admission: 05/24/20 - Critical Care Critical Care patient: No - Discharge Referral Referred to [facility] Med P.C.: No - Medication Review Med list reviewed for High Risk Meds patients 65 and older: Yes
--- NOTE | 2020-05-24 15:42 | PN ---
Teaching Attending Note Name of Resident: Meliton Warner ATTENDING PHYSICIAN STATEMENT I saw and evaluated the patient. I reviewed the resident's note and discussed the case with the resident. I agree with the resident's findings and plan as documented. SUBJECTIVE: Patient seen and examined in the ICU. Remains vented via Trachesotomy. Off NE for hemodynamic support. Drug rash continues to improve. Intake & Output 05/21/20 05/22/20 05/23/20 05/24/20 23:59 23:59 23:59 23:59 Intake Total 3100 2828 1975 835 Output Total 80218 100 60 0 Balance -7359 2728 1915 835 Weight 192 lb 5 oz 187 lb 192 lb 4.8 oz Last Vital Signs Temp Pulse Resp BP Pulse Ox 98.4 F 93 H 15 108/65 97 05/24/20 14:00 05/24/20 14:00 05/24/20 14:00 05/24/20 14:00 05/24/20 14:00 Active Medications Chlorhexidine Gluconate (Hibiclens For Decolonization -) 1 applic TP HS [facility] Last Admin: 05/23/20 22:06 Dose: 1 applic Documented by: Diphenhydramine HCl (Benadryl Injection -) 50 mg IVPB Q6H-IV [facility] Last Admin: 05/24/20 10:02 Dose: 50 mg Documented by: Epoetin Kam-epbx (Retacrit) 3,000 unit SQ ONCE ONE Stop: 05/24/20 14:46 Norepinephrine Bitartrate (Levophed Bag) 8,000 mcg in 500 mls @ 18.75 mls/hr IVPB TITR [facility]; Protocol Last Titration: 05/23/20 08:30 Dose: 0 mcg/min, 0 mls/hr Documented by: Fentanyl (Sublimaze Ivpb) 500 mcg in 100 mls @ 5 mls/hr IVPB TITR [facility]; Protocol Last Admin: 05/23/20 11:10 Dose: 25 mcg/hr, 5 mls/hr Documented by: Fluconazole (Diflucan 100 Mg/Ns Premixed Ivpb -) 50 mls @ 50 mls/hr IVPB DAILY [facility] Last Admin: 05/24/20 10:03 Dose: 50 mls/hr Documented by: Sodium Chloride (Normal Saline -) 250 mls @ 3,000 mls/hr IV PRN PRN PRN Reason: Hypotension during Dialysis Stop: 05/22/20 08:00 Sodium Chloride (Normal Saline -) 250 mls @ 3,000 mls/hr IV PRN PRN PRN Reason: Hypotension during Dialysis Stop: 05/25/20 14:45 Methylprednisolone Sodium Succinate (Solu-Medrol -) 60 mg IVPUSH Q8H-IV [facility] Last Admin: 05/24/20 10:02 Dose: 60 mg Documented by: Metoprolol Tartrate (Lopressor Injection -) 5 mg IVPUSH Q4H PRN PRN Reason: TACHYCARDIA (HR >160) Last Admin: 05/23/20 10:00 Dose: 5 mg Documented by: Multi-Ingredient Ointment (Zinc Oxide) 1 applic TP DAILY [facility] Last Admin: 05/24/20 10:03 Dose: 1 applic Documented by: Pantoprazole Sodium (Protonix Iv) 40 mg IVPUSH DAILY [facility] Last Admin: 05/24/20 10:02 Dose: 40 mg Documented by: Vancomycin HCl (Vancomycin Oral Solution) 125 mg PO Q6HPO [facility] Last Admin: 05/24/20 13:12 Dose: 125 mg Documented by: GEN: Lethargic but arousable, vented Lung: decreased breath sounds at the bases Heart: nml S1, S2, RR, unable to apprecite any G/M/R Abd: + BS, S/S N/T N/D X4Q Ext: + Pulses, WWPX4, (-) edema Laboratory Results - last 24 hr 05/24/20 05/24/20 05/24/20 05:00 05:00 05:00 WBC 9.8 RBC 2.85 L Hgb 8.7 L Hct 27.2 L MCV 95.4 MCH 30.4 MCHC 31.9 L RDW 22.3 H Plt Count 106 L D MPV 8.5 Absolute Neuts (auto) 9.0 H Neutrophils % 91.4 H Neutrophils % (Manual) 91.0 H Band Neutrophils % 0.0 Lymphocytes % 5.8 L D Lymphocytes % (Manual) 8.0 D Monocytes % 2.6 L Monocytes % (Manual) 1 L D Eosinophils % 0.0 Eosinophils % (Manual) 0.0 D Basophils % 0.2 Basophils % (Manual) 0.0 Myelocytes % (Man) 0 D Promyelocytes % (Man) 0 Blast Cells % (Manual) 0 Nucleated RBC % 0 Metamyelocytes 0 D Hypochromia 0 Platelet Estimate Decreased Polychromasia 1+ Poikilocytosis 0 Anisocytosis 2+ Microcytosis 0 Macrocytosis 2+ PT with INR 26.80 H INR 2.25 H PTT (Actin FS) 33.2 Sodium 141 Potassium 3.4 L Chloride 106 Carbon Dioxide 26 Anion Gap 9 BUN 51.1 H Creatinine 3.3 H Est GFR (CKD-EPI)AfAm 13.85 Est GFR (CKD-EPI)NonAf 11.95 Random Glucose 269 H Calcium 6.7 L* Phosphorus 3.0 Magnesium 2.3 Total Bilirubin 0.6 AST 7 L ALT 12 L Alkaline Phosphatase 101 Total Protein 4.2 L Albumin 1.7 L ASSESS: Septic Shock Suspected Drug Rash Chronic Respiratory Failure UTI ESRD on HD Atrial Fibrillation Supratherapeutic INR Thrombocytopenia DM PLAN: - IV benadryl, medrol - ABX per ID - Follow final cultures - Monitor off pressors - HD per renal - enteral feeds - DVT/GI prophylaxis - Remove TLC after peripheral access is obtained - Can be monitored on the vent floor Dr Escamilla
[2020-05-24] MEDS ORDERED: SODIUM CHLORIDE 250 ML IV PRN (18:00)
[2020-05-24] MEDS ORDERED: EPOETIN ALFA-EPBX 3,000 UNIT/ML VIAL IVPUSH ONE (18:00)
[2020-05-24] MEDS: NOREPINEPHRINE BITARTRATE 8,000 MCG/500 ML BAG IVPB SCH (19:46)
[2020-05-24] MEDS: FENTANYL IVPB 500 MCG/100 ML BAG IVPB SCH (19:47)
[2020-05-24] MEDS: MORPHINE SULFATE 2 MG/ML VIAL IVPUSH PRN (21:45)
[2020-05-24] MEDS: CHLORHEXIDINE GLUCONATE 4% CLEANSER FOR DECOLONIZATION TP SCH (21:46)
--- NOTE | 2020-05-24 22:32 | CONSULT ---
Consult Consult Specialty:: endocrinology Referred by:: Hospitalist Reason for Consultation:: DMT2 uncontrolled - History of Present Illness Chief Complaint: Intubated sepsis History of Present Illness: 89yo F pmh DMT2,admitted with hypotension, dementia, congenital rectovaginal fistual, generalized weakness, , GERD, anemia 2/2 folate deficiency, candidiasis of skin and nails, insomnia, ESRD on HD, afib , s/p tracheostomy and PEG tube, admitted with septic shock placed on respiratory assistance and pressors for hypotension and shock.has had elevated blood sugars,with stress related cause,on iv antibiotics and iv steroids. - Past Medical History MEDICAL ASST: Yes: CVA, Dementia Cardio/Vascular: Yes: AFIB Renal/: Yes: Renal Failure ...: No - Smoking History Smoking history: Smoker current status UNK Have you smoked in the past 12 months: No Home Medications - Allergies Allergies/Adverse Reactions: Allergies Allergy/AdvReac Type Severity Reaction Status Date / Time No Known Allergies Allergy Verified 05/18/20 12:12 - Home Medications Home Medications: Ambulatory Orders Acetaminophen [Tylenol] 325 mg PO QID PRN 05/18/20 Calcium Acetate [Phoslo -] 667 mg PO TID 05/18/20 Insulin Lispro [Humalog Kwikpen U-100] 4 units SCJ PRN 05/18/20 Magnesium 400 mg PO BID 05/18/20 Melatonin 3 mg PO HS 05/18/20 Metoprolol Tartrate 25 mg PO BID 05/18/20 Omeprazole 20 mg PO DAILY 05/18/20 Sennosides [Senna] 8.6 mg PO HS 05/18/20 Warfarin Na [Coumadin] 5 mg PO HS 05/18/20 Review of Systems Unable to obtain ROS, reason: lethargic intubated - Review of Systems Constitutional: reports: Lethargy Physical Exam Vital Signs: Vital Signs Temperature 98.5 F 05/24/20 18:00 Pulse Rate 121 H 05/24/20 20:20 Respiratory Rate 19 05/24/20 20:20 Blood Pressure 109/58 L 05/24/20 20:20 O2 Sat by Pulse Oximetry (%) 99 05/24/20 20:08 Labs: CBC, BMP 05/24/20 05:00 05/24/20 05:00 Problem List - Problems (1) ESRD (end stage renal disease) on dialysis Problems reviewed: Yes Code(s): N18.6 - END STAGE RENAL DISEASE; Z99.2 - DEPENDENCE ON RENAL DIALYSIS (2) Lactic acid increased Code(s): E87.2 - ACIDOSIS (3) Sepsis Code(s): A41.9 - SEPSIS, UNSPECIFIED ORGANISM Qualifiers: Sepsis type: sepsis due to unspecified organism Sepsis acute organ dysfunction status: unspecified Qualified Code(s): A41.9 - Sepsis, unspecified organism (4) Septic shock Code(s): A41.9 - SEPSIS, UNSPECIFIED ORGANISM; R65.21 - SEVERE SEPSIS WITH SEPTIC SHOCK (5) Supratherapeutic INR Code(s): R79.1 - ABNORMAL COAGULATION PROFILE (6) UTI (urinary tract infection) Code(s): N39.0 - URINARY TRACT INFECTION, SITE NOT SPECIFIED Qualifiers: Urinary tract infection type: site unspecified Hematuria presence: with hematuria Qualified Code(s): N39.0 - Urinary tract infection, site not specified; R31.9 - Hematuria, unspecified Assessment/Plan Current Active Problems ESRD (end stage renal disease) on dialysis (Acute) Lactic acid increased (Acute) Sepsis (Acute) Septic shock (Acute) Supratherapeutic INR (Acute) UTI (urinary tract infection) (Acute) Abnormal Lab Results 05/24/20 05/24/20 05/24/20 05:00 05:00 05:00 RBC 2.85 L Hgb 8.7 L Hct 27.2 L MCHC 31.9 L RDW 22.3 H Plt Count 106 L D Absolute Neuts (auto) 9.0 H Neutrophils % 91.4 H Neutrophils % (Manual) 91.0 H Lymphocytes % 5.8 L D Monocytes % 2.6 L Monocytes % (Manual) 1 L D PT with INR 26.80 H INR 2.25 H Potassium 3.4 L BUN 51.1 H Creatinine 3.3 H Random Glucose 269 H Calcium 6.7 L* AST 7 L ALT 12 L Total Protein 4.2 L Albumin 1.7 L Laboratory Results - last 24 hr 05/24/20 05/24/20 05/24/20 05:00 05:00 05:00 WBC 9.8 RBC 2.85 L Hgb 8.7 L Hct 27.2 L MCV 95.4 MCH 30.4 MCHC 31.9 L RDW 22.3 H Plt Count 106 L D MPV 8.5 Absolute Neuts (auto) 9.0 H Neutrophils % 91.4 H Neutrophils % (Manual) 91.0 H Band Neutrophils % 0.0 Lymphocytes % 5.8 L D Lymphocytes % (Manual) 8.0 D Monocytes % 2.6 L Monocytes % (Manual) 1 L D Eosinophils % 0.0 Eosinophils % (Manual) 0.0 D Basophils % 0.2 Basophils % (Manual) 0.0 Myelocytes % (Man) 0 D Promyelocytes % (Man) 0 Blast Cells % (Manual) 0 Nucleated RBC % 0 Metamyelocytes 0 D Hypochromia 0 Platelet Estimate Decreased Polychromasia 1+ Poikilocytosis 0 Anisocytosis 2+ Microcytosis 0 Macrocytosis 2+ PT with INR 26.80 H INR 2.25 H PTT (Actin FS) 33.2 Sodium 141 Potassium 3.4 L Chloride 106 Carbon Dioxide 26 Anion Gap 9 BUN 51.1 H Creatinine 3.3 H Est GFR (CKD-EPI)AfAm 13.85 Est GFR (CKD-EPI)NonAf 11.95 Random Glucose 269 H Calcium 6.7 L* Phosphorus 3.0 Magnesium 2.3 Total Bilirubin 0.6 AST 7 L ALT 12 L Alkaline Phosphatase 101 Total Protein 4.2 L Albumin 1.7 L plan: \bgm qid coverage scale once stable levemir dose titration
[2020-05-25] MEDS: methylPREDNISolone NA SUCC 40 MG/1 ML VIAL IVPUSH SCH ×2 (01:49→09:26)
[2020-05-25] MEDS: MORPHINE SULFATE 2 MG/ML VIAL IVPUSH PRN (01:50)
[2020-05-25] MEDS ORDERED: VASOPRESSIN 20 UNITS/ML VIAL IV ONE ×3 (05:42→14:01)
[2020-05-25] MEDS ORDERED: NOREPINEPHRINE NS PREMIX 16,000 MCG/500 ML BAG IVPB SCH (05:45)
[2020-05-25] MEDS ORDERED: VASOPRESSIN 40 UNITS in SODIUM CHLORIDE 98 ML IVPB SCH (05:45)
[2020-05-25] MEDS: VANCOMYCIN 250 MG/5 ML ORAL SOLUTION PO SCH ×3 (06:34→12:55)
[2020-05-25 06:58] LABS: INR 2.21 (0.83-1.09); PROTHROMBIN TIME (PATIENT) 26.3 SEC (9.7-13.0)
[2020-05-25 07:17] LABS: ALBUMIN 1.5 g/dl (3.4-5.0); BILIRUBIN,TOTAL 0.9 mg/dL (0.2-1); BLOOD UREA NITROGEN 29.5 mg/dL (7-18); CALCIUM 7.2 mg/dL (8.5-10.1); CREATININE 2.2 mg/dL (0.55-1.3); POTASSIUM 3.2 mmol/L (3.5-5.1)
[2020-05-25 07:44] LABS: BASO % 0.2 % (0-2.0); EOS % 0.4 % (0-4.5); HEMATOCRIT 28.6 % (32.4-45.2); HEMOGLOBIN 9.1 GM/dL (10.7-15.3); LYMPH % 14.8 % (8-40); MCH 30.9 pg (25.7-33.7); MEAN CELL VOLUME 96.6 fl (80-96); MEAN PLT VOLUME 9.3 fl (7.5-11.1); MONO % 2.2 % (3.8-10.2); NEUT % 82.4 % (42.8-82.8); PLATELET COUNT 107 K/MM3 (134-434); RBC 2.96 M/mm3 (3.60-5.2); RDW 21.8 % (11.6-15.6)
[2020-05-25 07:56] LABS: WHITE BLOOD COUNT 1.3 K/mm3 (4.0-10.0)
[2020-05-25] MEDS: ZINC OXIDE 20% TOPICAL OINTMENT 30 GM TUBE TP SCH (09:29)
[2020-05-25] MEDS: PANTOPRAZOLE SODIUM 40 MG VIAL IVPUSH SCH (09:29)
[2020-05-25] MEDS: FLUCONAZOLE 100 MG/NS 50 ML IVPB SCH (09:49)
[2020-05-25] MEDS ORDERED: METOPROLOL TARTRATE 25 MG TABLET (FP) PO SCH (10:00)
[2020-05-25] MEDS ORDERED: METOPROLOL TARTRATE 5 MG/5 ML VIAL IVPUSH ONE (10:15)
[2020-05-25] MEDS ORDERED: METOPROLOL TARTRATE 5 MG/5 ML VIAL ONE (10:16)
[2020-05-25] MEDS: KCL 10 MEQ IVPB 10 MEQ/100 ML INFUS.BAG IVPB SCH ×3 (10:19→13:44)
[2020-05-25] MEDS: INSULIN SLIDING SCALE (NOVOLOG) 1 VIAL SQ SCH ×2 (10:31→15:05)
[2020-05-25] MEDS ORDERED: PHENYLEPHRINE HCL 10 MG/1 ML SINGLE DOSE VIAL ONE ×2 (11:55→12:02)
[2020-05-25] MEDS ORDERED: AMIODARONE HCL 150 MG/3 ML VIAL IVPUSH ONE (12:03)
[2020-05-25] MEDS ORDERED: PHENYLEPHRINE NS PREMIX 50,000 MCG/500 ML BAG CVP SCH (12:15)
[2020-05-25] MEDS ORDERED: PHENYLEPHRINE NS PREMIX 25,000 MCG/250 ML BAG CVP SCH (12:15)
[2020-05-25] MEDS ORDERED: AMIODARONE IN DEXTROSE,ISO-OSM 360 MG/200 ML BAG IVPB ONE (12:38)
[2020-05-25] MEDS ORDERED: PIPERACILLIN/TAZOB 2.25 GM 2.25 GM in DEXTROSE 5%-WATER - 50 ML IVPB ONE (12:43)
[2020-05-25] MEDS ORDERED: AMIODARONE IN DEXTROSE,ISO-OSM 360 MG/200 ML BAG ONE (12:50)
--- NOTE | 2020-05-25 12:55 | EKG ---
Test Reason : Blood Pressure : / mmHG Vent. Rate : 133 BPM Atrial Rate : 133 BPM P-R Int : 142 ms QRS Dur : 084 ms QT Int : 266 ms P-R-T Axes : 079 049 141 degrees QTc Int : 395 ms SINUS TACHYCARDIA LOW VOLTAGE QRS ABNORMAL ECG WHEN COMPARED WITH ECG OF 25-MAY-2020 11:02, PREMATURE SUPRAVENTRICULAR COMPLEXES ARE NO LONGER PRESENT Confirmed by MD LUCIA, GILSON ([id number]) on 05/25/2020 12:54:47 PM Referred By: [facility] Confirmed By:GILSON MYERS MD
[2020-05-25] MEDS ORDERED: FENTANYL NS IVPB 500 MCG/100 ML BAG IVPB SCH (13:00)
[2020-05-25 13:16] LABS: MAGNESIUM 1.8 mg/dL (1.8-2.4); PHOSPHOROUS 1.6 mg/dL (2.5-4.9)
[2020-05-25] MEDS ORDERED: LACTATED RINGERS SOLUTION 1000 ML INFUS.BAG IV ONE (13:25)
--- NOTE | 2020-05-25 13:25 | PN ---
Teaching Attending Note Name of Resident: Meliton Warner ATTENDING PHYSICIAN STATEMENT I saw and evaluated the patient. I reviewed the resident's note and discussed the case with the resident. I agree with the resident's findings and plan as documented. SUBJECTIVE: Pt seen and examined in the ICU. Remains vented, hypotensive with episodes of rapid afib now on vasopressin and phenylephrine gtts. OBJECTIVE: Vital Signs Period Temp Pulse Resp BP Sys/Hernandez Pulse Ox Last 24 Hr 97.6 F-100.0 F 93-150 14-35 65-147/36-126 95-100 Intake & Output 05/22/20 05/23/20 05/24/20 05/25/20 23:59 23:59 23:59 23:59 Intake Total 2828 1975 2469 762 Output Total 464 09 3194 350 Balance 2728 9078 -0319 412 Weight 87.231 kg 84.822 kg 87.226 kg 86.228 kg Gen: vented, poorly responsive Heart: RRR Lung: decreased breath sounds at the bases Abd: soft, nontender Ext: no edema CBC, BMP 05/25/20 05:30 05/25/20 05:30 Active Medications Chlorhexidine Gluconate (Hibiclens For Decolonization -) 1 applic TP HS [facility] Last Admin: 05/24/20 21:46 Dose: 1 applic Documented by: Diphenhydramine HCl (Benadryl Injection -) 50 mg IVPB Q6H-IV [facility] Last Admin: 05/25/20 09:30 Dose: Not Given Documented by: Sodium Chloride (Normal Saline -) 250 mls @ 3,000 mls/hr IV PRN PRN PRN Reason: Hypotension during Dialysis Stop: 05/25/20 17:59 Vasopressin 40 units/ Sodium (Chloride) 100 mls @ 0.075 mls/hr IVPB ASDIR [facility]; Protocol Last Titration: 05/25/20 09:30 Dose: 4 units/hr, 10 mls/hr Documented by: Phenylephrine HCl (Shiraz-Synephrine) 50,000 mcg in 500 mls @ 60 mls/hr CVP TITR [facility]; Protocol Last Titration: 05/25/20 12:30 Dose: 150 mcg/min, 90 mls/hr Documented by: Amiodarone HCl 450 mg/ (Dextrose) 250 mls @ 33.333 mls/hr IVPB TITR ONE; Protocol Stop: 05/25/20 20:07 Piperacillin Sod/Tazobactam (Sod 2.25 gm/ Dextrose) 50 mls @ 100 mls/hr IVPB ONCE ONE; Protocol Stop: 05/25/20 13:12 Fentanyl (Sublimaze Ivpb) 500 mcg in 100 mls @ 17.246 mls/hr IVPB TITR [facility] Insulin Aspart (Novolog Vial Sliding Scale -) 1 vial SQ QID [facility]; Protocol Last Admin: 05/25/20 10:31 Dose: Not Given Documented by: Methylprednisolone Sodium Succinate (Solu-Medrol -) 40 mg IVPUSH BID [facility] Metoprolol Tartrate (Lopressor -) 25 mg PO BID [facility] Morphine Sulfate (Morphine Sulfate) 2 mg IVPUSH Q4H PRN PRN Reason: PAIN LEVEL 6-10 Last Admin: 05/25/20 01:50 Dose: 2 mg Documented by: Multi-Ingredient Ointment (Zinc Oxide) 1 applic TP DAILY [facility] Last Admin: 05/25/20 09:29 Dose: 1 applic Documented by: Pantoprazole Sodium (Protonix Iv) 40 mg IVPUSH DAILY [facility] Last Admin: 05/25/20 09:29 Dose: 40 mg Documented by: Vancomycin HCl (Vancomycin Oral Solution) 125 mg PO Q6HPO [facility] Last Admin: 05/25/20 12:55 Dose: Not Given Documented by: Vancomycin HCl (Vancomycin (Pre-Docked)) 1,000 mg IVPB ONCE ONE; Protocol Stop: 05/25/20 12:43 ASSESSMENT AND PLAN: Chronic Respiratory Failure UTI Septic Shock ESRD on HD Atrial Fibrillation Supratherapeutic INR Thrombocytopenia DM Drug Rash - taper medrol - reculture - restart empiric antibiotics - titrate pressors to maintain MAP >65 - HD per renal - enteral feeds - DVT/GI prophylaxis - continue ICU monitoring critical care time spent in reviewing chart, evaluating patient and formulating plan 35 min
[2020-05-25] MEDS ORDERED: VANCOMYCIN 1 GM in D5W (PRE-DOCKED) 1,000 MG/250 ML IVPB ONE (13:30)
[2020-05-25] MEDS ORDERED: PIPERACILLIN/TAZOBACTAM 2.25 GM VIAL IVPB ONE (13:35)
[2020-05-25] MEDS ORDERED: DEXTROSE 5%-WATER - 50 ML IVPB ONE (13:35)
[2020-05-25] MEDS ORDERED: FENTANYL IVPB 500 MCG/100 ML BAG IVPB SCH (13:45)
[2020-05-25 13:53] LABS: ANISOCYTOSIS 1+; MACROCYTOSIS 0; PLATELET ESTIMATE DECREASED
--- NOTE | 2020-05-25 13:53 | PN ---
Progress Note, Physician History of Present Illness: events noted patient looking septic now on pressors wbc has decreased still on vent continues to be hypotensive - Current Medication List Current Medications: Active Medications Chlorhexidine Gluconate (Hibiclens For Decolonization -) 1 applic TP HS [facility] Last Admin: 05/24/20 21:46 Dose: 1 applic Documented by: Diphenhydramine HCl (Benadryl Injection -) 50 mg IVPB Q6H-IV [facility] Last Admin: 05/25/20 09:30 Dose: Not Given Documented by: Sodium Chloride (Normal Saline -) 250 mls @ 3,000 mls/hr IV PRN PRN PRN Reason: Hypotension during Dialysis Stop: 05/25/20 17:59 Vasopressin 40 units/ Sodium (Chloride) 100 mls @ 0.075 mls/hr IVPB ASDIR [facility]; Protocol Last Titration: 05/25/20 11:00 Dose: 6 units/hr, 15 mls/hr Documented by: Phenylephrine HCl (Shiraz-Synephrine) 50,000 mcg in 500 mls @ 60 mls/hr CVP TITR [facility]; Protocol Last Titration: 05/25/20 12:30 Dose: 150 mcg/min, 90 mls/hr Documented by: Amiodarone HCl/Dextrose (Nexterone 360 Mg/200 Ml Bag) 360 mg in 200 mls @ 33.333 mls/hr IVPB TITR [facility]; Protocol Stop: 05/25/20 18:37 Last Admin: 05/25/20 12:30 Dose: 1 mg/min, 33.333 mls/hr Documented by: Fentanyl (Sublimaze Ivpb) 500 mcg in 100 mls @ 10 mls/hr IVPB TITR [facility] Insulin Aspart (Novolog Vial Sliding Scale -) 1 vial SQ QID [facility]; Protocol Last Admin: 05/25/20 10:31 Dose: Not Given Documented by: Lactated Ringer's (Lactated Ringers Solution) 500 ml IV ONCE ONE Stop: 05/25/20 13:26 Methylprednisolone Sodium Succinate (Solu-Medrol -) 40 mg IVPUSH BID [facility] Metoprolol Tartrate (Lopressor -) 25 mg PO BID [facility] Morphine Sulfate (Morphine Sulfate) 2 mg IVPUSH Q4H PRN PRN Reason: PAIN LEVEL 6-10 Last Admin: 05/25/20 01:50 Dose: 2 mg Documented by: Multi-Ingredient Ointment (Zinc Oxide) 1 applic TP DAILY [facility] Last Admin: 05/25/20 09:29 Dose: 1 applic Documented by: Pantoprazole Sodium (Protonix Iv) 40 mg IVPUSH DAILY [facility] Last Admin: 05/25/20 09:29 Dose: 40 mg Documented by: Vancomycin HCl (Vancomycin Oral Solution) 125 mg PO Q6HPO [facility] Last Admin: 05/25/20 12:55 Dose: Not Given Documented by: - Objective Vital Signs: Vital Signs Temperature 100.0 F H 05/25/20 10:30 Pulse Rate 120 H 05/25/20 10:30 Respiratory Rate 35 H 05/25/20 12:34 Blood Pressure 79/44 L 05/25/20 10:30 O2 Sat by Pulse Oximetry (%) 98 05/25/20 10:30 Constitutional: Yes: Other Cardiovascular: Yes: S1, S2 Respiratory: Yes: Mechanically Ventilated, Other (trach) Gastrointestinal: Yes: Normal Bowel Sounds, Soft Musculoskeletal: Yes: Other Extremities: Yes: Other Edema: LLE: 1+, RLE: 1+ Integumentary: Yes: Rash Neurological: Yes: Other Labs: CBC, BMP 05/25/20 05:30 05/25/20 05:30 INR, PTT INR 2.21 (0.83-1.09) H 05/25/20 05:30 - ....Imaging Chest X-ray: Report Reviewed, Image Reviewed Assessment/Plan this patient with multiple medical issues now in septic shock all cx reports noted Chronic Respiratory Failure UTI Septic Shock ESRD on HD Atrial Fibrillation Supratherapeutic INR DM Drug Rash plan events noted 1 start patient on vanco and zosyn 2 get a stat xray chest 3 hydration 4 continue pressors rest as per icu patient not doing well prognosis poor
[2020-05-25] MEDS ORDERED: DEXTROSE 50%-WATER 25 GM/50 ML DISP.SYRIN ONE ×2 (15:00→16:02)
[2020-05-25] MEDS ORDERED: DEXTROSE 50%-WATER - 25 GM/50 ML VIAL IVPUSH ONE ×2 (15:00→15:59)
[2020-05-25] MEDS ORDERED: NOREPINEPHRINE BITARTRATE 8,000 MCG/500 ML BAG IVPB SCH (15:30)
[2020-05-25] MEDS ORDERED: SODIUM CHLORIDE 0.9% 500 ML INFUS.BAG IV ONE (15:34)
[2020-05-25] MEDS ORDERED: POTASSIUM PHOSPHATE 30 MM in SODIUM CHLORIDE 250 ML IVPB ONE (16:00)
--- NOTE | 2020-05-25 16:29 | PN ---
Progress Note (short form) - Note Progress Note: RENAL Has worsened less responsive and requiring more pressors Last Vital Signs Temp Pulse Resp BP Pulse Ox 100.0 F H 128 H 24 H 66/39 L 77 L 05/25/20 10:30 05/25/20 14:00 05/25/20 14:00 05/25/20 14:00 05/25/20 14:00 trach lungs clear cvs s1s2 rr abd soft ext +edema neuro awake skin rash is resolving, now has desquamation CBC, BMP 05/25/20 05:30 05/25/20 05:30 Current Medications Generic Name Dose Route Start Last Admin Trade Name Freq PRN Reason Stop Dose Admin Chlorhexidine Gluconate 1 applic 05/18/20 22:00 05/24/20 21:46 Hibiclens For Decolonization - TP 1 applic HS [facility] Administration Diphenhydramine HCl 50 mg 05/20/20 12:00 05/25/20 15:05 Benadryl Injection - IVPB Not Given Q6H-IV [facility] Sodium Chloride 250 mls @ 3,000 mls/hr 05/24/20 18:00 Normal Saline - IV 05/25/20 17:59 PRN PRN Hypotension during Dialysis Vasopressin 40 units/ Sodium 100 mls @ 0.075 mls/hr 05/25/20 05:45 05/25/20 11:00 Chloride IVPB 6 units/hr ASDIR [facility] 15 mls/hr Titration Protocol 0.03 UNITS/HR Phenylephrine HCl 50,000 mcg in 500 mls @ 60 mls/hr 05/25/20 12:15 05/25/20 12:30 Shiraz-Synephrine CVP 150 mcg/min TITR [facility] 90 mls/hr Titration Protocol 100 MCG/MIN Amiodarone HCl/Dextrose 360 mg in 200 mls @ 33.333 mls/hr 05/25/20 12:38 05/25/20 12:30 Nexterone 360 Mg/200 Ml Bag IVPB 05/25/20 18:37 1 mg/min TITR ONE 33.333 mls/hr Administration Protocol 1 MG/MIN Fentanyl 500 mcg in 100 mls @ 10 mls/hr 05/25/20 13:45 05/25/20 13:20 Sublimaze Ivpb IVPB 50 mcg/hr TITR [facility] 10 mls/hr Administration 50 MCG/HR Potassium Phosphate 30 mm/ 260 mls @ 30 mls/hr 05/25/20 16:00 Sodium Chloride IVPB 05/26/20 00:39 ONCE ONE Norepinephrine Bitartrate 8,000 mcg in 500 mls @ 18.75 mls/hr 05/25/20 15:30 05/25/20 16:10 Levophed Bag IVPB 15 mcg/min TITR [facility] 56.25 mls/hr Titration Protocol 5 MCG/MIN Insulin Aspart 1 vial 05/25/20 10:00 05/25/20 15:05 Novolog Vial Sliding Scale - SQ Not Given QID [facility] Protocol Methylprednisolone Sodium Succinate 40 mg 05/25/20 22:00 Solu-Medrol - IVPUSH BID [facility] Metoprolol Tartrate 25 mg 05/25/20 10:00 Lopressor - PO BID [facility] Morphine Sulfate 2 mg 05/24/20 19:55 05/25/20 01:50 Morphine Sulfate IVPUSH 2 mg Q4H PRN Administration PAIN LEVEL 6-10 Multi-Ingredient Ointment 1 applic 05/19/20 21:45 05/25/20 09:29 Zinc Oxide TP 1 applic DAILY [facility] Administration Pantoprazole Sodium 40 mg 05/19/20 10:00 05/25/20 09:29 Protonix Iv IVPUSH 40 mg DAILY [facility] Administration Vancomycin HCl 125 mg 05/20/20 12:00 05/25/20 12:55 Vancomycin Oral Solution PO Not Given Q6HPO [facility] IMPRESSION esrd septic shock likely drug rash vent dependence s/p recent catheter dislodgement eosinophilia consistent with drug rash-reportedly due to bactrim PLAN would volume resuscitate, try to asses volume as you give fluids pressors broad spectrum antibiotics would start reducing her steroids since she appears better abx per ID MV
[2020-05-25 16:59] LABS: ARTERIAL BLD GAS O2 SATURATION 99.1 mmHg (95-98)
[2020-05-25 17:00] LABS: ALLENS TEST POSITIVE; VENT MODE AC; VENT RATE 15
[2020-05-25 17:03] LABS: ARTERIAL BLOOD GAS pH 6.924 (7.350-7.450)
--- NOTE | 2020-05-25 17:24 | PN ---
Progress Note, Physician History of Present Illness: I was called to bedside at approximately 4:46 pm, I was notified by nurse Poly that the left subclavian line had spontaneously dislodged from the patient approximately 1 minute (~4:45 pm) from the patient. I evaluated the patient and noted that the central line was dislodged from the patient and on the floor. I immediately grabbed a new central line kit in order to re-establish central acc ess as the patient was on vasopressin, NE, and phenylephrine. A central line procedure was set up with sterile precautions. While in the middle of the procedure at approximately 5:01, the patient began to have bradycardia and at 5:03 pm the patient had 0 bpm on monitor and was asytolic. I checked her pulse and no pulse was auscultated. No response to verbal and tactile stimulation and pupils were fixed and dilated without reaction to light. The patient was declared at approximately 5:04 pm. Family was notified in the waiting room at approximately 5:06 pm. Attending notified at approximately 5:10 pm. - Current Medication List Current Medications: Active Medications Chlorhexidine Gluconate (Hibiclens For Decolonization -) 1 applic TP HS [facility] Last Admin: 05/24/20 21:46 Dose: 1 applic Documented by: Diphenhydramine HCl (Benadryl Injection -) 50 mg IVPB Q6H-IV [facility] Last Admin: 05/25/20 15:05 Dose: Not Given Documented by: Sodium Chloride (Normal Saline -) 250 mls @ 3,000 mls/hr IV PRN PRN PRN Reason: Hypotension during Dialysis Stop: 05/25/20 17:59 Vasopressin 40 units/ Sodium (Chloride) 100 mls @ 0.075 mls/hr IVPB ASDIR [facility]; Protocol Last Titration: 05/25/20 11:00 Dose: 6 units/hr, 15 mls/hr Documented by: Phenylephrine HCl (Shiraz-Synephrine) 50,000 mcg in 500 mls @ 60 mls/hr CVP TITR [facility]; Protocol Last Titration: 05/25/20 12:30 Dose: 150 mcg/min, 90 mls/hr Documented by: Amiodarone HCl/Dextrose (Nexterone 360 Mg/200 Ml Bag) 360 mg in 200 mls @ 33.333 mls/hr IVPB TITR [facility]; Protocol Stop: 05/25/20 18:37 Last Admin: 05/25/20 12:30 Dose: 1 mg/min, 33.333 mls/hr Documented by: Fentanyl (Sublimaze Ivpb) 500 mcg in 100 mls @ 10 mls/hr IVPB TITR [facility] Last Admin: 05/25/20 13:20 Dose: 50 mcg/hr, 10 mls/hr Documented by: Potassium Phosphate 30 mm/ (Sodium Chloride) 260 mls @ 30 mls/hr IVPB ONCE ONE Stop: 05/26/20 00:39 Norepinephrine Bitartrate (Levophed Bag) 8,000 mcg in 500 mls @ 18.75 mls/hr IVPB TITR [facility]; Protocol Last Titration: 05/25/20 16:10 Dose: 15 mcg/min, 56.25 mls/hr Documented by: Insulin Aspart (Novolog Vial Sliding Scale -) 1 vial SQ QID [facility]; Protocol Last Admin: 05/25/20 15:05 Dose: Not Given Documented by: Methylprednisolone Sodium Succinate (Solu-Medrol -) 40 mg IVPUSH BID [facility] Metoprolol Tartrate (Lopressor -) 25 mg PO BID [facility] Morphine Sulfate (Morphine Sulfate) 2 mg IVPUSH Q4H PRN PRN Reason: PAIN LEVEL 6-10 Last Admin: 05/25/20 01:50 Dose: 2 mg Documented by: Multi-Ingredient Ointment (Zinc Oxide) 1 applic TP DAILY [facility] Last Admin: 05/25/20 09:29 Dose: 1 applic Documented by: Pantoprazole Sodium (Protonix Iv) 40 mg IVPUSH DAILY [facility] Last Admin: 05/25/20 09:29 Dose: 40 mg Documented by: Vancomycin HCl (Vancomycin Oral Solution) 125 mg PO Q6HPO [facility] Last Admin: 05/25/20 12:55 Dose: Not Given Documented by: - Objective Vital Signs: Vital Signs Temperature 100.0 F H 05/25/20 10:30 Pulse Rate 128 H 05/25/20 14:00 Respiratory Rate 26 H 05/25/20 16:46 Blood Pressure 66/39 L 05/25/20 14:00 O2 Sat by Pulse Oximetry (%) 77 L 05/25/20 14:00 Labs: CBC, BMP 05/25/20 05:30 INR, PTT INR 2.21 (0.83-1.09) H 05/25/20 05:30
[2020-05-25 18:51] VITALS: TEMP 98
[2020-05-25 19:29] VITALS: BP 33/0; PULSE 0
--- NOTE | 2020-05-25 19:45 | PN ---
Physical Exam: SUBJECTIVE: Patient seen and examined. Intubated and nonverbal at baseline. Pt overnight MAP dropped and her CBC shows low WBC count. Pt starting to get tachycardic with low bp. Pt needed to be restarted on pressors and left in ICU for monitoring. OBJECTIVE: Physical exam: GENERAL: The patient is awake, alert. Non-verbal. HEAD: NC, ulcers on L neck. Wounds on L chin and behind L ear. PERRL. No ptosis. MMM m LUNGS: ventilated breath sounds. HEART: Tachycardic with irregular rhythm ABDOMEN: obese, Soft, nontender, nondistended, LUQ peg tube EXTREMITIES: 2+ pulses, warm, well-perfused, 3+ pitting edema b/l LE. 2+ pitting edema b/l UE. legs erythematous, scaling SKIN: Warm, dry, diffuse erythema improved now only on stomach and chest. Vital Signs Period Temp Pulse Resp BP Sys/Hernandez Pulse Ox Last 24 Hr 98.0 F-100.0 F 0-150 15-35 33-147/0-126 0-100 Laboratory Results - last 24 hr 05/25/20 05/25/20 05/25/20 05:30 05:30 05:30 WBC 1.3 L* Corrected WBC (auto) RBC 2.96 L Hgb 9.1 L Hct 28.6 L MCV 96.6 H MCH 30.9 MCHC 32.0 RDW 21.8 H Plt Count 107 L MPV 9.3 Absolute Neuts (auto) 1.1 L Neutrophils % 82.4 Neutrophils % (Manual) 61.5 Band Neutrophils % 6.3 Lymphocytes % 14.8 D Lymphocytes % (Manual) 22.9 D Monocytes % 2.2 L Monocytes % (Manual) 1 L Eosinophils % 0.4 D Eosinophils % (Manual) 2.1 D Basophils % 0.2 Basophils % (Manual) 0.0 Myelocytes % (Man) 2 D Promyelocytes % (Man) 0 Blast Cells % (Manual) 0 Nucleated RBC % 3 H Metamyelocytes 3 H D Hypochromia 2+ Platelet Estimate Decreased Platelet Comment Polychromasia 1+ Poikilocytosis 0 Anisocytosis 1+ Microcytosis 0 Macrocytosis 0 PT with INR INR Anticoagulation Therapy Puncture Site Patient Temperature ABG pH ABG pCO2 ABG pO2 ABG HCO3 ABG O2 Sat (Measured) ABG O2 Content ABG Base Excess Miguelangel Test Patient On Oxygen O2 Delivery Device Oxygen Flow Rate Vent Mode Vent Rate Mechanical Rate PEEP Pressure Support Vent Sodium 145 Potassium 3.2 L Chloride 109 H Carbon Dioxide 27 Anion Gap 9 BUN 29.5 H Creatinine 2.2 H Est GFR (CKD-EPI)AfAm 22.61 Est GFR (CKD-EPI)NonAf 19.51 POC Glucometer Random Glucose 207 H Hemoglobin A1c % 4.9 Calcium 7.2 L Phosphorus 1.6 L Magnesium 1.8 Total Bilirubin 0.9 AST 68 H ALT 35 Alkaline Phosphatase 123 H Total Protein 4.0 L Albumin 1.5 L 05/25/20 05/25/20 05/25/20 05:30 10:30 14:59 WBC Corrected WBC (auto) RBC Hgb Hct MCV MCH MCHC RDW Plt Count MPV Absolute Neuts (auto) Neutrophils % Neutrophils % (Manual) Band Neutrophils % Lymphocytes % Lymphocytes % (Manual) Monocytes % Monocytes % (Manual) Eosinophils % Eosinophils % (Manual) Basophils % Basophils % (Manual) Myelocytes % (Man) Promyelocytes % (Man) Blast Cells % (Manual) Nucleated RBC % Metamyelocytes Hypochromia Platelet Estimate Platelet Comment Polychromasia Poikilocytosis Anisocytosis Microcytosis Macrocytosis PT with INR 26.30 H INR 2.21 H Anticoagulation Therapy Puncture Site Patient Temperature ABG pH ABG pCO2 ABG pO2 ABG HCO3 ABG O2 Sat (Measured) ABG O2 Content ABG Base Excess Miguelangel Test Patient On Oxygen O2 Delivery Device Oxygen Flow Rate Vent Mode Vent Rate Mechanical Rate PEEP Pressure Support Vent Sodium Potassium Chloride Carbon Dioxide Anion Gap BUN Creatinine Est GFR (CKD-EPI)AfAm Est GFR (CKD-EPI)NonAf POC Glucometer 123 25 Random Glucose Hemoglobin A1c % Calcium Phosphorus Magnesium Total Bilirubin AST ALT Alkaline Phosphatase Total Protein Albumin 05/25/20 05/25/20 05/25/20 15:56 16:20 16:30 WBC Cancelled Corrected WBC (auto) Cancelled RBC Cancelled Hgb Cancelled Hct Cancelled MCV Cancelled MCH Cancelled MCHC Cancelled RDW Cancelled Plt Count Cancelled MPV Cancelled Absolute Neuts (auto) Cancelled Neutrophils % Cancelled Neutrophils % (Manual) Band Neutrophils % Lymphocytes % Cancelled Lymphocytes % (Manual) Monocytes % Cancelled Monocytes % (Manual) Eosinophils % Cancelled Eosinophils % (Manual) Basophils % Cancelled Basophils % (Manual) Myelocytes % (Man) Promyelocytes % (Man) Blast Cells % (Manual) Nucleated RBC % Cancelled Metamyelocytes Hypochromia Platelet Estimate Cancelled Platelet Comment Cancelled Polychromasia Poikilocytosis Anisocytosis Microcytosis Macrocytosis PT with INR INR Anticoagulation Therapy No Result Required. Puncture Site Right brachial Patient Temperature No Result Required. ABG pH 6.924 L* ABG pCO2 28.30 L ABG pO2 258.0 H ABG HCO3 5.7 L ABG O2 Sat (Measured) 99.1 H ABG O2 Content No Result Required. ABG Base Excess -25.0 L Miguelangel Test Positive Patient On Oxygen Yes O2 Delivery Device Mech vent Oxygen Flow Rate 100% Vent Mode Ac Vent Rate 15 Mechanical Rate No Result Required. PEEP 10.0 Pressure Support Vent 400 Sodium Potassium Chloride Carbon Dioxide Anion Gap BUN Creatinine Est GFR (CKD-EPI)AfAm Est GFR (CKD-EPI)NonAf POC Glucometer 58 Random Glucose Hemoglobin A1c % Calcium Phosphorus Magnesium Total Bilirubin AST ALT Alkaline Phosphatase Total Protein Albumin Active Medications Generic Name Dose Route Start Last Admin Trade Name Freq PRN Reason Stop Dose Admin Chlorhexidine Gluconate 1 applic 05/18/20 22:00 05/24/20 21:46 Hibiclens For Decolonization - TP 1 applic HS TAMIA Administration Diphenhydramine HCl 50 mg 05/20/20 12:00 05/25/20 15:05 Benadryl Injection - IVPB Not Given Q6H-IV TAMIA Vasopressin 40 units/ Sodium 100 mls @ 0.075 mls/hr 05/25/20 05:45 05/25/20 11:00 Chloride IVPB 6 units/hr ASDIR TAMIA 15 mls/hr Titration Protocol 0.03 UNITS/HR Phenylephrine HCl 50,000 mcg in 500 mls @ 60 mls/hr 05/25/20 12:15 05/25/20 12:30 Shiraz-Synephrine CVP 150 mcg/min TITR TAMIA 90 mls/hr Titration Protocol 100 MCG/MIN Fentanyl 500 mcg in 100 mls @ 10 mls/hr 05/25/20 13:45 05/25/20 13:20 Sublimaze Ivpb IVPB 50 mcg/hr TITR TAMIA 10 mls/hr Administration 50 MCG/HR Potassium Phosphate 30 mm/ 260 mls @ 30 mls/hr 05/25/20 16:00 Sodium Chloride IVPB 05/26/20 00:39 ONCE ONE Norepinephrine Bitartrate 8,000 mcg in 500 mls @ 18.75 mls/hr 05/25/20 15:30 05/25/20 16:10 Levophed Bag IVPB 15 mcg/min TITR TAMIA 56.25 mls/hr Titration Protocol 5 MCG/MIN Insulin Aspart 1 vial 05/25/20 10:00 05/25/20 15:05 Novolog Vial Sliding Scale - SQ Not Given QID [facility] Protocol Methylprednisolone Sodium Succinate 40 mg 05/25/20 22:00 Solu-Medrol - IVPUSH BID [facility] Metoprolol Tartrate 25 mg 05/25/20 10:00 Lopressor - PO BID [facility] Morphine Sulfate 2 mg 05/24/20 19:55 05/25/20 01:50 Morphine Sulfate IVPUSH 2 mg Q4H PRN Administration PAIN LEVEL 6-10 Multi-Ingredient Ointment 1 applic 05/19/20 21:45 05/25/20 09:29 Zinc Oxide TP 1 applic DAILY [facility] Administration Pantoprazole Sodium 40 mg 05/19/20 10:00 05/25/20 09:29 Protonix Iv IVPUSH 40 mg DAILY TAMIA Administration Vancomycin HCl 125 mg 05/20/20 12:00 05/25/20 12:55 Vancomycin Oral Solution PO Not Given Q6HPO [facility] ASSESSMENT/PLAN: 89 YO F PMH dementia, GERD, ESRD on HD, afib, candidasis (skin/nails), DM type 2, congenital rectovaginal fistula, unspecified dysphagia, insomnia, tracheostomy and PEG tube was referred from [facility] for severe hypotension and AMS. Admitted to ICU for Septic shock 2/2 likely UTI. Neuro: -Alert and awake, but non-non verbal -fentantyl drip for pain Pulm: #Chronic respiratory failure -patient has trach - CXR: New infiltrate at left base - Pt saturating well vent settings at 15/400/40%/5 Cardio: #afib - trop neg -Pt maxed on levo vasopressin and phenylephrine. - Pt afib tachycardia given amio drip ID: -Pt wbc 1 possible septic shock will give fluid and tx with empiric abx. Heme: -takes warfarin at home. will continue holding home warfarin and other AC -f/u PT/INR, PTT Renal: - cortes - ESRD on HD GI - h/o cdiff -continue with vancomycin 125 PO Q6H - protonix 40 IV daily for GI ppx Derm: - diffuse erythema and scaling. -h/o gregorio infection on skin -discussed with ID. either a reaction to medication or fungal infection. > Diflucan 100 mg IV daily started for fungal infection. Uptodate recommending reducing diflucan dose for those with renal impairment. > solumedrol 60 Q8H -spoke to daughter and [facility] who both denied any allergies to medications or past reactions to medications. Faxing release of information sheet to [facility] for patient's past medical records to investigate allergies to medications or past reactions to medications. - according to PM team allergic reaction is most likely due to bactim (sulfa allergy?) FEN NS@50 ml /hr montior lytes- K low today was repleted. tube feed nepro DVT PPX - holding AC 2/2 supratherapeutic INR on admission -scds Lines Left subclavian triple lumen (05/20). CAN USE Left subclavian triple lumen. LUQ peg tube (arrived with it) R permacath cortes Dispo: maintain ICU Visit type - Emergency Visit Emergency Visit: Yes ED Registration Date: 05/18/20 Care time: The patient presented to the Emergency Department on the above date and was hospitalized for further evaluation of their emergent condition. - New Patient This patient is new to me today: No - Critical Care Critical Care patient: Yes Total Critical Care Time (in minutes): 36 Critical Care Statement: The care of this patient involved high complexity decision making to prevent further life threatening deterioration of the patient's condition and/or to evaluate & treat vital organ system(s) failure or risk of failure. - Medication Review Med list reviewed for High Risk Meds patients 65 and older: Yes ATTENDING PHYSICIAN STATEMENT I saw and evaluated the patient. I reviewed the resident's note and discussed the case with the resident. I agree with the resident's findings and plan as documented. SUBJECTIVE: OBJECTIVE: ASSESSMENT AND PLAN:
[2020-05-25] MEDS ORDERED: methylPREDNISolone NA SUCC 40 MG/1 ML VIAL IVPUSH SCH (22:00)
== END 2020-05-25 19:43 | disposition expired | DRG 870 ==
LOC: JER 12:05 → JERBED 13:08 → JICU 22:10
PROVIDERS: ADMIT Internal Medicine Endocrinology, Diabetes & Metabolism; ATTEND Internal Medicine Pulmonary Disease
PROC: 5A1955Z Respiratory Ventilation, Greater than 96 Consecutive Hours (ICD-10-PCS; principal; 2020-05-18)
PROC: 06HM33Z Insertion of Infusion Device into Right Femoral Vein, Percutaneous Approach (ICD-10-PCS; 2020-05-18)
PROC: 30233K1 Transfusion of Nonautologous Frozen Plasma into Peripheral Vein, Percutaneous Approach (ICD-10-PCS; 2020-05-19)
PROC: 5A1D70Z Performance of Urinary Filtration, Intermittent, Less than 6 Hours Per Day (ICD-10-PCS; 2020-05-19)
PROC: 30233N1 Transfusion of Nonautologous Red Blood Cells into Peripheral Vein, Percutaneous Approach (ICD-10-PCS; 2020-05-19)
PROC: 05H633Z Insertion of Infusion Device into Left Subclavian Vein, Percutaneous Approach (ICD-10-PCS; 2020-05-20)
PROC: B547ZZA Ultrasonography of Left Subclavian Vein, Guidance (ICD-10-PCS; 2020-05-20)
PROC: 5A1D70Z Performance of Urinary Filtration, Intermittent, Less than 6 Hours Per Day (ICD-10-PCS; 2020-05-21)
PROC: 5A1D70Z Performance of Urinary Filtration, Intermittent, Less than 6 Hours Per Day (ICD-10-PCS; 2020-05-24)
DX: A41.89 Other specified sepsis (principal); R65.21 Severe sepsis with septic shock; N18.6 End stage renal disease; N39.0 Urinary tract infection, site not specified; E87.2 Acidosis; I12.0 Hypertensive chronic kidney disease with stage 5 chronic kidney disease or end stage renal disease; J96.10 Chronic respiratory failure, unspecified whether with hypoxia or hypercapnia; L27.0 Generalized skin eruption due to drugs and medicaments taken internally; I48.91 Unspecified atrial fibrillation; R00.0 Tachycardia, unspecified; K05.10 Chronic gingivitis, plaque induced; R41.82 Altered mental status, unspecified; Q00-Q99 Congenital malformations, deformations and chromosomal abnormalities; D72.1 Eosinophilia; E11.22 Type 2 diabetes mellitus with diabetic chronic kidney disease; F03.90 Unspecified dementia, unspecified severity, without behavioral disturbance, psychotic disturbance, mood disturbance, and anxiety; G47.00 Insomnia, unspecified; E87.6 Hypokalemia; R13.10 Dysphagia, unspecified; K21.9 Gastro-esophageal reflux disease without esophagitis; D69.6 Thrombocytopenia, unspecified; T36.8X5A Adverse effect of other systemic antibiotics, initial encounter; D52.9 Folate deficiency anemia, unspecified; Z93.0 Tracheostomy status; Z93.1 Gastrostomy status; Z99.2 Dependence on renal dialysis; Z86.73 Personal history of transient ischemic attack (TIA), and cerebral infarction without residual deficits; Y92.230 Patient room in hospital as the place of occurrence of the external cause
CPT/HCPCS: 36415; 36430; 36600; 71045-TC-FY; 80048; 80053; 80076; 81003; 82248; 82550; 82553; 82728; 82803; 82962; 83036; 83605; 83615; 83735; 84100; 84484; 85025; 85027; 85610; 85730; 86140; 86704; 86706; 86707; 86708; 86709; 86803; 86850; 86900; 86901; 86922; 87040; 87086; 87186; 87324; 87340; 87449; 90670; 93005; 93010; 94002; 99291; J0131; P9017; P9058; Q5106; U0003